=== PATIENT | male | born 1945 | race Caucasian/White ===

== ENCOUNTER 2018-02-07 14:56 | Observation (INO) | payer MEDICARE ==
--- OUTSIDE RECORDS SUMMARY | 2018-02-07 15:03 | XMS REPORT | Continuity of Care Document ---
:1945 Author Organization Interface Problems Problem Status Onset Classification Date Comments Source Date Reported CONTACT Active 12/26/19 Condition 12/25/2014 DERMATITIS 15 [facility] GANGLION CYST Active 12/26/19 Condition 12/25/2014 15 [facility] OBESITY Active 12/26/19 Condition 12/25/2014 15 [facility] ORTHOSTATIC Active 12/26/19 Condition 12/25/2014 HYPOTENSION 15 Medical Group POST-OP CARE, IV Active 11/06/19 [facility] ANTIBIOTICS, PAIN 15 Medical [facility] Center POST-OP Active 11/06/19 [facility] COMPLICATIONS/BLE 15 [facility] Benign prostatic Active 10/25/19 Problem 11/21/2017 Data hypertrophy with 15 migrated Medical outflow from [facility] obstruction<sup>4 [facility] </sup> on 11/14/14. Onychomycosis<sup Active 10/25/19 Problem 11/21/2017 Data >9</sup> 15 migrated Medical from [facility] on 11/14/14. Osteoarthritis of Active 10/25/19 Problem 11/21/2017 Data hip<sup>10</sup> 15 migrated Medical from [facility] on 11/14/14. Preoperative Active 10/25/19 Problem 11/21/2017 Data procedures<sup>12 15 migrated Medical </sup> from [facility] on 11/14/14. ONYCHOMYCOSIS Active 10/25/19 Condition 12/25/2014 15 Medical Group OSTEOARTHRITIS, Inactive 10/25/19 Condition 12/25/2014 HIP, RIGHT 15 Medical Group BENIGN PROSTATIC Active 10/25/19 Condition 12/25/2014 HYPERTROPHY, WITH 15 Medical OBSTRUCTION Group AFTERCARE Active 10/24/19 [facility] FOLLOWING JOINT 15 Medical REPLACEMENT, B Center Sinusitis<sup>15< Active 06/22/19 Problem 11/21/2017 Data /sup> 15 migrated Medical from [facility] on 11/14/14. SINUSITIS Inactive 06/22/19 Condition 12/25/2014 15 Medical Group Prostate Active 04/12/20 Problem 11/21/2017 Data mass<sup>13</sup> 14 [facility]. Prostate Active 04/12/20 Problem 11/10/2014 9Data [facility] mass<sup>9</sup> 14 migrated Medical from [facility] on 10/09/14. PROSTATITIS, Inactive 04/12/20 Condition 12/25/2014 ACUTE 14 Medical Group PROSTATE NODULE Inactive 04/12/20 Condition 12/25/2014 14 Medical Group Abdominal Active 12/28/19 Problem 11/21/2017 Data pain<sup>1</sup> 14 migrated Medical from [facility] on 10/09/14. Medical Center ABDOMINAL PAIN Inactive 12/28/19 Condition 12/25/2014 14 Medical Group Allergic Active 12/13/19 Problem 11/21/2017 Data rhinitis<sup>2</s 14 migrated Medical up> from [facility] on 10/09/14. Medical Center Benign essential Active 12/13/19 Problem 11/21/2017 Data hypertension<sup> 14 migrated Medical 3</sup> from [facility] on 10/09/14. [facility] Center Body mass index Active 12/13/19 Problem 11/21/2017 Data 30+ - 14 migrated Medical obesity<sup>5</rodriguez from [facility] p> [facility]ric[facility] on 10/09/14. Disease of Active 12/13/19 Problem 11/21/2017 Data gallbladder<sup>6 14 migrated Medical </sup> from [facility]14. Long-term drug Active 12/13/19 Problem 11/21/2017 Data therapy<sup>7</rodriguez 14 migrated Medical p> from [facility] on 10/09/14. Neck Active 12/13/19 Problem 11/21/2017 Data pain<sup>8</sup> 14 migrated Medical from [facility]. Positional Active 12/13/19 Problem 11/21/2017 Data vertigo<sup>11</s 14 migrated Medical up> from [facility]14. 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 Body mass index Active 12/13/19 Problem 11/10/2014 4Data [place] 30+ - 14 migrated Medical obesity<sup>4</rodriguez from [facility] p> [facility]ric[facility] on 10/09/14. Disease of Active 12/13/19 Problem 11/10/2014 5Data [facility] gallbladder<sup>5 14 migrated Medical </sup> from [facility] on 10/09/14. Long-term drug Active 12/13/19 Problem 11/10/2014 6Data [facility] therapy<sup>6</rodriguez 14 migrated Medical p> from [facility] on 10/09/14. Neck Active 12/13/19 Problem 11/10/2014 7Data [facility] pain<sup>7</sup> 14 migrated Medical from [facility] on 10/09/14. Positional Active 12/13/19 Problem 11/10/2014 8Data [facility] vertigo<sup>8</rodriguez 14 migrated Medical p> from [facility] on 10/09/14. Reactive airways Active 12/13/19 Problem 11/10/2014 10Data [facility] dysfunction 14 migrated Medical syndrome<sup>10</ from [facility] sup> Centricity on 10/09/14. HYPERTENSION, Active 12/13/19 Condition 12/25/2014 BENIGN ESSENTIAL 14 Medical Group BODY MASS INDEX Active 12/13/19 Condition 06/22/2014 38.0-38.9, ADULT 14 Medical Group GALLBLADDER Active 12/13/19 Condition 12/25/2014 DISEASE 14 Medical Group CERVICALGIA Active 12/13/19 Condition 12/25/2014 14 Medical Group LONG-TERM USE OF Active 12/13/19 Condition 12/25/2014 MEDS 14 Medical Group ALLERGIC RHINITIS Active 12/13/19 Condition 12/25/2014 14 Medical Group REACTIVE AIRWAY Active 12/13/19 Condition 12/25/2014 DISEASE 14 Medical Group POSITIONAL Inactive 12/13/19 Condition 12/25/2014 VERTIGO 14 Medical Group BODY MASS INDEX Active 12/13/19 Condition 10/24/2014 35.0-35.9, ADULT 14 Medical Group BODY MASS INDEX Active 12/13/19 Condition 12/25/2014 34.0-34.9, ADULT 14 Medical Group NAUSEA Active 12/12/[address] Arthritis Active Problem 11/21/2017 Medical Group,[facility] [place] [facility] Hypertension Active Problem 11/21/2017 Medical Group,[facility] [place] [facility] OTHER GENERAL Active [facility] SYMPTOMS [facility] OSTEOARTHROS Active [facility] NOS-L/LEG [facility] Center Medications Medication Details Route Status Patient Ordering Order Source Instructions Provider Date lisinopril 20 mg 40 mg=2 tab, PO, Active oral tablet Daily, # 180 tab, 2018 Medical 1 Refill(s), Group Pharmacy: [facility] lisinopril 20 mg See Instructions, No Longer oral tablet # 180 tab, TAKE 2 Active 2017 Medical TABLETS BY MOUTH Group EVERY DAY, Pharmacy: [facility] 24 HR mirabegron 50 mg=1 tab, PO, Active 50 MG Extended Daily, # 90 tab, 2018 Medical Release Tablet 3 Refill(s), Group [Myrbetriq] Pharmacy: [facility] 24 HR mirabegron 50 mg=1 tab, PO, Active 08/03[facility] 50 MG Extended Daily, # 30 tab, 2018 Medical Release Tablet 6 Refill(s), Group [Myrbetriq] Pharmacy: [facility] 482 TRIAMCINOLONE apply to affected Active ACETONIDE 0.1 % area twice daily 2015 Medical CREA as needed Group Acetaminophen 300 1 - 2 tab, PO, Active 11/07[facility] [place] MG / Codeine Q6H, PRN Pain, X 2015 Medical Phosphate 60 MG 7 day, # 40 tab, Center Oral Tablet 1 Refill(s) [Tylenol with Codeine #4] minocycline 100 100 mg=1 cap, PO, Active 11/07[facility] [place] mg oral capsule Q12H, X 14 day, # 2015 Medical 28 cap, 0 Center Refill(s) Aspirin 81 MG 81 mg=1 tab, PO, Active 11/07[facility] [place] Enteric Coated BID, HOLD ASPIRIN 2014 Medical Tablet UNTIL CLEARED BY Center ORTHOPEDICS. STAY ACTIVE TO PREVENT BLOOD CLOTS., # 60 tab, 0 Refill(s), otherSpecial Instructions: HOLD ASPIRIN UNTIL CLEARED BY ORTHOPEDICS. STAY ACTIVE TO PREVENT BLOOD CLOTS. topiramate 25 mg 25 mg=1 tab, PO, Active [facility] oral tablet Bedtime, 0 2014 Medical Refill(s) Center lisinopril 20 mg 20 mg=1 tab, PO, Active [facility] oral tablet BID, HOLD UNTIL 2015 Medical SYSTOLIC BP (TOP Center NUMBER) IS GREATER THAN 140 THEN RESTART., 0 Refill(s)Special Instructions: HOLD UNTIL SYSTOLIC BP (TOP NUMBER) IS GREATER THAN 140 THEN RESTART. docusate sodium 100 mg=1 cap, PO, Active [place] 100 mg oral BID, 0 Refill(s) 2014 Medical capsule Center acetaminophen 325 650 mg=2 tab, PO, Active [facility] mg oral tablet Q6H, PRN Pain 2015 Medical Score 1-3, not to Center exceed 4000 mg/day INCLUDING 325mg per tab of norco, 0 Refill(s)Special Instructions: not to exceed 4000 mg/day INCLUDING 325mg per tab of norco Acetaminophen 325 1 tab, PO, Q4H, Active [facility] MG / Hydrocodone PRN Pain Score 2015 Medical Bitartrate 10 MG 1-3, 0 Refill(s) Center Oral Tablet sennosides, JAIL 17.2 mg, 2 tab, No Longer [facility] Route: PO, Drug Active 2014 Medical Form: TAB, Dosing Center Weight 110.909, kg, Daily, Start date: 11/06/14 9:00:00, Duration: 30 day, Stop date: 12/05/14 9:00:00Notes: (Same as: Senokot) topiramate 50 mg, 2 tab, No Longer [facility] Route: PO, Drug Active 2014 Medical form: TAB, Daily, Center Dosing Weight 110.909, kg, Start date: 11/06/14 9:00:00, Duration: 30 day, Stop date: 12/05/14 9:00:00Notes: (Same As: Topamax) Fish Oil 1,000 mg, 1 cap, No Longer [facility] Route: PO, Drug Active 2014 Medical form: CAP, Daily, Center Dosing Weight 110.909, kg, Start date: 11/06/14 9:00:00, Duration: 30 day, Stop date: 12/05/14 9:00:00Notes: (Same as: MaxEPA, [place] 3 fish oil ) Non-Formulary Drug multivitamin 1 tab, Route: PO, No Longer [place] Drug Form: TAB, Active 2014 Medical Dosing Weight Center 110.909, kg, Daily, Start date: 11/06/14 9:00:00, Duration: 30 day, Stop date: 12/05/14 9:00:00Notes: (Same as:Thera) Take with food. Lisinopril 20 mg, 1 tab, No Longer [place] Route: PO, Drug Active 2014 Medical form: TAB, BID, Center Dosing Weight 110.909, kg, Start date: 11/06/14 9:00:00, Duration: 30 day, Stop date: 12/05/14 21:00:00Notes: (Same as: Prinivil, Zestril) Vitamin D3 1000 1,000 IntlUnit, 1 No Longer [place] intl units oral tab, Route: PO, Active 2014 Medical tablet Drug form: TAB, Center Daily, Dosing Weight 110.909, kg, Start date: 11/06/14 9:00:00, Duration: 30 day, Stop date: 12/05/14 9:00:00Notes: Same as : Vitamin D3 carvedilol 12.5 mg, 2 tab, No Longer [place] Route: PO, Drug Active 2014 Medical form: TAB, QAM, Center Dosing Weight 110.909, kg, Start date: 11/06/14 9:00:00, Duration: 30 day, Stop date: 12/05/14 9:00:00Notes: Give with food. (Same As: Coreg) Vitamin C 500 mg, 1 tab, No Longer [place] Route: PO, Drug Active 2014 Medical form: TAB, Daily, Center Dosing Weight 110.909, kg, Start date: 11/06/14 9:00:00, Duration: 30 day, Stop date: 12/05/14 9:00:00Notes: (Same as: Vitamin C) tamsulosin 0.4 mg, 1 cap, No Longer [place] Route: PO, Drug Active 2014 Medical form: CAP, After Center Breakfast, Dosing Weight 110.909, kg, Start date: 11/06/14 8:30:00, Duration: 30 day, Stop date: 12/05/14 8:30:00Notes: (Same As: Flomax) "Do Not Crush" Vancomycin 6.67 1,500 mg, 250 mL, No Longer [place] MG/ML Injectable Route: IVPB, Drug Active 2014 Medical Solution form: INJ, Q12H, Center Dosing Weight 110.909, kg, Time Critical Medication, Start date: 11/06/14 5:00:00, Duration: 14 day, Stop date: 11/19/14 17:00:00, Pharmacy to adjust dose for renal functionSpecial Instructions: Pharmacy to adjust dose for renal functionNotes: TIME CRITICAL MEDICATION Same as: Vancocin-NS (premixed) Infusion rate 2001 mg: infuse over 2.5 hours Tranexamic Acid 2,000 mg, 20 mL, Inactive [place] Route: IVPB, Drug 2014 Medical form: INJ, ONCE, Center Dosing Weight 110.909, kg, Start date: 11/06/14 1:02:00, Stop date: 11/06/14 1:02:00Notes: (Same As: Cyklokapron) Topamax 25 mg, 1 tab, No Longer [place] Route: PO, Drug Active 2014 Medical form: TAB, Center Bedtime, Start date: 11/05/14 21:00:00, Duration: 30 day, Stop date: 12/04/14 21:00:00Notes: (Same As: Topamax) Docusate 100 mg, 1 cap, No Longer [facility] Route: PO, Drug Active 2014 Medical form: CAP, BID, Center Dosing Weight 110.909, kg, Start date: 11/05/14 21:00:00, Duration: 30 day, Stop date: 12/05/14 9:00:00Notes: (Same as: Colace) celecoxib 200 mg, 1 cap, No Longer [facility] Route: PO, Drug Active 2014 Medical form: CAP, Center [id number], Dosing Weight 110.909, kg, Start date: 11/05/14 20:00:00, Stop date: 12/05/14 8:00:00Notes: NSAID. Please check indication. Not for seizure. (Same As: CeleBREX) Morphine 2 mg, 0.2 mL, No Longer [facility] Route: IVP, Drug Active 2014 Medical form: INJ, Q5Min, Center Dosing Weight 110.909, kg, PRN Pain Score 4-6, Start date: 11/05/14 19:18:00, Duration: 5 doses or times, Stop date: Limited # of timesNotes: (Same as:MORPhine Sulfate) Hydromorphone 0.5 mg, 0.25 mL, No Longer [facility] Route: IVP, Drug Active 2014 Medical form: INJ, Q5Min, Center Dosing Weight 110.909, kg, PRN Pain Score 7-10, Start date: 11/05/14 19:18:00, Duration: 4 doses or times, Stop date: Limited # of timesNotes: Same as Dilaudid Meperidine 12.5 mg, 0.25 mL, No Longer [facility] Route: IVP, Drug Active 2014 Medical form: INJ, Center Q30Min, Dosing Weight 110.909, kg, PRN Other -See Comment, For shivering, Start date: 11/05/14 19:18:00, Duration: 2 doses or times, Stop date: Limited # of timesNotes: (Same as: Demerol) "Use Precaution in Elderly, Seizure disorders, and Renal impairment" Ondansetron 4 mg, 2 mL, No Longer [facility] Route: IVP, Drug Active 2014 Medical form: INJ, ONCE, Center Dosing Weight 110.909, kg, PRN Nausea & Vomiting, Start date: 11/05/14 19:18:00Notes: (Same as: Zofran) MEDICATION WASTE Product Size: 4 mg Product Wasted: ___ mg POLYETHYLENE 17 gm, 1 pkt, No Longer [place] GLYCOL [id number] Route: PO, Drug Active 2014 Medical form: PWDR, Center Daily, Dosing Weight 110.909, kg, PRN Constipation, Start date: 11/05/14 19:02:00, Stop date: 12/05/14 19:01:00Notes: (Same as: Miralax) Bisacodyl 10 mg, 1 supp, No Longer [place] Route: VT, Drug Active 2014 Medical form: SUPP, Center Daily, Dosing Weight 110.909, kg, PRN Constipation, Start date: 11/05/14 19:02:00, Stop date: 12/05/14 19:01:00Notes: (Same As: Dulcolax, Bisco-Lax) Morphine 5 mg, 0.5 mL, No Longer [place] Route: IVP, Drug Active 2014 Medical form: INJ, Q4H, Center Dosing Weight 110.909, kg, PRN Pain Score 7-10, Start date: 11/05/14 19:02:00, Stop date: 12/05/14 19:01:00Notes: (Same as:MORPhine Sulfate) Al hydroxide/Mg 30 mL, Route: PO, No Longer [place] hydroxide/simethi Drug Form: SUSP, Active 2014 Medical cone 200 mg-200 Dosing Weight Center mg-20 mg/5 mL 110.909, kg, Q4H, oral suspension PRN Indigestion, Start date: 11/05/14 19:02:00, Stop date: 12/05/14 19:01:00Notes: (aluminum hydroxide-magnesi um hyd- simethicone [id number]/5ml 30 ml ud DELISA) Ondansetron 4 mg, 2 mL, No Longer [place] Route: IVP, Drug Active 2014 Medical form: INJ, Q6H, Center Dosing Weight 110.909, kg, PRN Nausea & Vomiting, Start date: 11/05/14 19:02:00, Stop date: 12/05/14 19:01:00Notes: (Same as: Zofran) MEDICATION WASTE Product Size: 4 mg Product Wasted: ___ mg Diphenhydramine 25 mg, 1 cap, No Longer [place] Route: PO, Drug Active 2014 Medical form: CAP, Center Bedtime, Dosing Weight 110.909, kg, PRN Insomnia, Start date: 11/05/14 19:02:00, Stop date: 12/05/14 19:01:00Notes: (Same as: Benadryl) Phenergan 25 mg, 1 tab, No Longer [place] Route: PO, Drug Active 2014 Medical form: TAB, Q6H, Center Dosing Weight 110.909, kg, PRN Nausea & Vomiting, Start date: 11/05/14 19:02:00, Stop date: 12/05/14 19:01:00Notes: (Same as: Phenergan) Tylenol 650 mg, 2 tab, No Longer [place] Route: PO, Drug Active 2014 Medical form: TAB, Q6H, Center Dosing Weight 110.909, kg, PRN Pain Score 1-3, Start date: 11/05/14 19:02:00, Stop date: 12/05/14 19:01:00Notes: Do not exceed 4 gm/day. (Same as: Tylenol) zolpidem 5 mg, Route: PO, Inactive [place] Drug form: TAB, 2015 Medical Bedtime, Dosing Center Weight 110.909, kg, PRN Insomnia, Start date: 11/05/14 19:02:00, Duration: 30 day, Stop date: 12/05/14 19:01:00 Acetaminophen 325 2 tab, Route: PO, No Longer [place] MG / Hydrocodone Drug Form: TAB, Active 2014 Medical Bitartrate 10 MG Dosing Weight Center Oral Tablet 110.909, kg, Q4H, PRN Pain Score 4-6, Start date: 11/05/14 19:02:00, Stop date: 12/05/14 19:01:00Notes: Do not exceed 4gm/day of acetaminophen. (Same as: [place] 325/10) Temazepam 15 mg, 1 cap, No Longer [facility] Route: PO, Drug Active 2014 Medical form: CAP, Center Bedtime, Dosing Weight 110.909, kg, PRN Sleep, Start date: 11/05/14 19:02:00, Stop date: 12/05/14 19:01:00Notes: (Same As: Restoril) Famotidine 20 mg, 1 tab, No Longer [facility] Route: PO, Drug Active 2014 Medical form: TAB, BID, Center Dosing Weight 110.909, kg, PRN Indigestion, Start date: 11/05/14 19:02:00, Stop date: 12/05/14 19:01:00Notes: (Same as: Pepcid) Oxycodone 5 mg, 1 tab, No Longer [place] Hydrochloride 5 Route: PO, Drug Active 2014 Medical MG Oral Tablet form: TAB, Q4H, Center Dosing Weight 110.909, kg, PRN Pain Score 4-6, Start date: 11/05/14 19:02:00, Stop date: 12/05/14 19:01:00Notes: (Same as: Roxicodone) 1/2 NS 1,000 mL 1,000 mL, Rate: No Longer [place] 85 ml/hr, Infuse Active 2014 Medical over: 11.8 hr, Center Route: IV, Dosing Weight 110.909 kg, Total Volume: 1,000, Start date: 11/05/14 19:02:00, Stop date: 12/05/14 19:01:00 Vancomycin 1 gm, Route: Inactive [place] IVPB, Drug form: 2014 Medical INJ, ONCE, Dosing Center Weight 110.909, kg, Priority: STAT, Start date: 11/05/14 18:02:00, Stop date: 11/05/14 18:02:00 Albuterol 0.83 2.49 mg, 3 mL, No Longer [place] MG/ML Inhalant Route: Active 2014 Medical Solution INHALATION, Drug Center form: SOLN, RQ6H, Dosing Weight 110.909, kg, PRN Wheezing, Start date: 11/05/14 17:31:00, Stop date: 12/05/14 17:30:00Notes: SEE RT DOCUMENTATION (Same as: Proventil) Ondansetron 4 mg, 2 mL, No Longer [facility] Route: IVP, Drug Active 2014 Medical form: INJ, Q8H, Center Dosing Weight 110.909, kg, PRN Nausea & Vomiting, Start date: 11/05/14 16:58:00, Stop date: 12/05/14 16:57:00Notes: (Same as: Zofran) MEDICATION WASTE Product Size: 4 mg Product Wasted: ___ mg Docusate 100 mg, 1 cap, No Longer [place] Route: PO, Drug Active 2014 Medical form: CAP, BID, Center Dosing Weight 110.909, kg, PRN Constipation, Start date: 11/05/14 16:58:00, Stop date: 12/05/14 16:57:00Notes: (Same as: Colace) (Do Not Crush) Acetaminophen 325 1 tab, Route: PO, No Longer [place] MG / Hydrocodone Drug Form: TAB, Active 2014 Medical Bitartrate 10 MG Dosing Weight Center Oral Tablet 110.909, kg, Q4H, PRN Pain Score 4-6, Start date: 11/05/14 16:58:00, Stop date: 12/05/14 16:57:00Notes: Do not exceed 4gm/day of acetaminophen. (Same as: [place] 325/10) Acetaminophen 650 mg, 2 tab, No Longer [place] Route: PO, Drug Active 2014 Medical form: TAB, Q4H, Center Dosing Weight 110.909, kg, PRN Other -See Comment, Start date: 11/05/14 16:58:00, Stop date: 12/05/14 16:57:00, feverNotes: Do not exceed 4 gm/day. (Same as: Tylenol) Morphine 2 mg, 0.2 mL, No Longer [place] Route: IVP, Drug Active 2014 Medical form: INJ, Q3H, Center Dosing Weight 110.909, kg, PRN Pain Score 7-10, Start date: 11/05/14 16:58:00, Stop date: 12/05/14 16:57:00Notes: (Same as:MORPhine Sulfate) Acetaminophen 325 1 tab, Route: PO, No Longer [place] MG / Hydrocodone Drug Form: TAB, Active 2014 Medical Bitartrate 5 MG Dosing Weight Center Oral Tablet 110.909, kg, Q4H, PRN Pain Score 1-3, Start date: 11/05/14 16:58:00, Stop date: 12/05/14 16:57:00Notes: (Same as: [place] 325/5) Do not exceed 4gm/day of acetaminophen. Cefazolin 2 gm, Route: Inactive [place] IVPB, ONCALL, 2014 Medical Dosing Weight Center 110.909, kg, Start date: 11/05/14 16:00:00, Duration: 1 doses or times, Stop date: 11/06/14 6:00:00Notes: (Same As: Mone Jacques) Cefazolin FOR IV SET ONLY MEDICATION WASTE Product Size: 1000 mg Product Wasted: ___ mg Acetaminophen 325 2 tab, Route: PO, Inactive [facility] MG / Hydrocodone Drug Form: TAB, 2014 Medical Bitartrate 10 MG Dosing Weight Center Oral Tablet 111.364, kg, [[place] 10/325] ONCE, STAT, Start date: 11/05/14 13:31:00, Stop date: 11/05/14 13:31:00 Acetaminophen 325 1-2 tab, PO, Active [facility] MG / Hydrocodone Q4-6H, PRN Pain, 2015 Medical Bitartrate 10 MG X 5 day, # 40 Center Oral Tablet tab, 0 Refill(s) [[place] 10/325] senna 8.6 mg oral 17.2 mg=2 tab, Active [facility] tablet PO, Bedtime, PRN 2015 Medical constipation, X Center 14 day, # 28 tab, 0 Refill(s) docusate sodium 100 mg=1 cap, PO, Active [place] 100 mg oral BID, # 28 cap, 0 2015 Medical capsule Refill(s) Center bisacodyl 10 mg 10 mg=1 supp, [place], Active [facility] rectal Daily, PRN 2015 Medical suppository Constipation, X 3 Center day, # 3 supp, 0 Refill(s) Aspirin 81 MG 81 mg=1 tab, PO, Active [place] Enteric Coated BID, # 60 tab, 0 2015 Medical Tablet Refill(s) Center celecoxib 200 mg 200 mg=1 cap, PO, Active [facility] oral capsule [id number], # 60 2015 Medical cap, 2 Refill(s) Center Sodium Chloride 1,000 mL, Rate: No Longer [place] 0.154 MEQ/ML 75 ml/hr, Infuse Active 2015 Medical Injectable over: 13.3 hr, Center Solution Route: IV, Dosing Weight 111.364 kg, Total Volume: 1,000, Start date: 10/30/14 10:09:00, Duration: 30 day, Stop date: 11/29/14 10:08:00 carvedilol 12.5 mg, 2 tab, No Longer [facility] Route: PO, Drug Active 2014 Medical form: TAB, QAM, Center Dosing Weight 111.364, kg, Start date: 10/30/14 9:00:00, Duration: 30 day, Stop date: 11/28/14 9:00:00Notes: Give with food. (Same As: Coreg) sennosides, JAIL 8.6 mg, 1 tab, No Longer [facility] Route: PO, Drug Active 2014 Medical Form: TAB, Dosing Center Weight 111.364, kg, Daily, Start date: 10/30/14 9:00:00, Duration: 30 day, Stop date: 11/28/14 9:00:00Notes: (Same as: Senokot) 120 ACTUAT 110 microgram, No Longer [facility] Triamcinolone Route: NASAL, Active 2014 Medical Acetonide 0.055 Drug Form: SPRY, Center MG/ACTUAT Nasal Dosing Weight Inhaler 111.364, kg, [Nasacort] Daily, Start date: 10/30/14 9:00:00, Duration: 30 day, Stop date: 11/28/14 9:00:00Notes: Non-formulary drug. (triamcinolone 55 microgram/inh 10 gm nasal SPR) (Same As: Nasacort) topiramate 50 mg, 2 tab, No Longer [facility] Route: PO, Drug Active 2014 Medical form: TAB, Daily, Center Dosing Weight 111.364, kg, Start date: 10/30/14 9:00:00, Duration: 30 day, Stop date: 11/28/14 9:00:00Notes: (Same As: Topamax) "Do Not Crush" tamsulosin 0.4 mg, 1 cap, No Longer [facility] Route: PO, Drug Active 2014 Medical form: CAP, Daily, Center Dosing Weight 111.364, kg, Start date: 10/30/14 9:00:00, Duration: 30 day, Stop date: 11/28/14 9:00:00Notes: (Same As: Flomax) "Do Not Crush" Fish Oil 1,000 mg, 1 cap, No Longer [facility] Route: PO, Drug Active 2014 Medical form: CAP, Daily, Center Dosing Weight 111.364, kg, Start date: 10/30/14 9:00:00, Duration: 30 day, Stop date: 11/28/14 9:00:00Notes: (Same as: MaxEPA, [place] 3 fish oil ) Non-Formulary Drug multivitamin 1 tab, Route: PO, No Longer [facility] Drug Form: TAB, Active 2014 Medical Dosing Weight Center 111.364, kg, Daily, Start date: 10/30/14 9:00:00, Duration: 30 day, Stop date: 11/28/14 9:00:00Notes: (Same as:Thera) Take with food. Vitamin D3 1000 1,000 IntlUnit, 1 No Longer [facility] intl units oral tab, Route: PO, Active 2014 Medical tablet Drug form: TAB, Center Daily, Dosing Weight 111.364, kg, Start date: 10/30/14 9:00:00, Duration: 30 day, Stop date: 11/28/14 9:00:00Notes: Same as : Vitamin D3 Tranexamic Acid 1,200 mg, 12 mL, Inactive [place] Route: IVPB, Drug 2014 Medical form: INJ, ONCE, Center Dosing Weight 111.364, kg, Priority: Routine, Start date: 10/29/14 21:21:00, Stop date: 10/29/14 21:21:00Notes: (Same As: Cyklokapron) ceFAZolin (SCIP) 2 gm, 100 mL, No Longer [facility] Route: IVPB, Drug Active 2014 Medical form: INJ, Q6H, Center Dosing Weight 111.364, kg, Start date: 10/29/14 20:00:00, Duration: 3 doses or times, Stop date: 10/30/14 8:00:00Notes: Same as Ancef Aspirin 325 mg, 1 tab, No Longer [facility] Route: PO, Drug Active 2014 Medical form: ECTAB, Center Q12H, Dosing Weight 111.364, kg, For patients with risk of bleeding, Start date: 10/29/14 19:23:00, Duration: 30 day, Stop date: 11/28/14 9:00:00Notes: (Do Not Crush) Do not crush or chew. Docusate 100 mg, 1 cap, No Longer [place] Route: PO, Drug Active 2014 Medical form: CAP, BID, Center Dosing Weight 111.364, kg, Start date: 10/29/14 17:00:00, Duration: 30 day, Stop date: 11/28/14 9:00:00Notes: (Same as: Colace) (Do Not Crush) Lisinopril 20 mg, 1 tab, No Longer [place] Route: PO, Drug Active 2014 Medical form: TAB, BID, Center Dosing Weight 111.364, kg, Start date: 10/29/14 17:00:00, Duration: 30 day, Stop date: 11/28/14 9:00:00Notes: (Same as: Prinivil, Zestril) Diphenhydramine 12.5 mg, 0.25 mL, No Longer [place] Route: IVP, Drug Active 2014 Medical form: INJ, Center Q10Min, Dosing Weight 111.364, kg, PRN Itching, up to a maximum of 25 mg, Start date: 10/29/14 16:08:00, Duration: 30 day, Stop date: 11/28/14 16:07:00Notes: (Same as: Benadryl) Albuterol 0.83 2.49 mg, 3 mL, No Longer [place] MG/ML Inhalant Route: NEB, Drug Active 2014 Medical Solution form: SOLN, PRN, Center Dosing Weight 111.364, kg, PRN Respiratory Protocol, Start date: 10/29/14 16:05:00, Duration: 30 day, Stop date: 11/28/14 16:04:00Notes: SEE RT DOCUMENTATION (Same as: Proventil) celecoxib 200 mg, 1 cap, No Longer [place] Route: PO, Drug Active 2014 Medical form: CAP, Center [id number], Dosing Weight 111.364, kg, Start date: 10/29/14 16:00:00, Duration: 30 day, Stop date: 11/28/14 4:00:00Notes: NSAID. Please check indication. Not for seizure. (Same As: CeleBREX) Promethazine 6.25 mg, 0.25 mL, Inactive [facility] Route: IVPB, Drug 2014 Medical form: INJ, ONCE, Center Dosing Weight 111.364, kg, PRN Nausea & Vomiting, Start date: 10/29/14 15:59:00Notes: Do not give IV push. (Same as: Phenergan) Ondansetron 4 mg, 2 mL, Inactive [facility] Route: IVP, Drug 2014 Medical form: INJ, ONCE, Center Dosing Weight 111.364, kg, PRN Nausea & Vomiting, Start date: 10/29/14 15:59:00Notes: (Same as: Zofran) MEDICATION WASTE Product Size: 4 mg Product Wasted: ___ mg Meperidine 12.5 mg, 0.25 mL, Inactive [facility] Route: IVP, Drug 2014 Medical form: INJ, Center Q30Min, Dosing Weight 111.364, kg, PRN Other -See Comment, For shivering, Start date: 10/29/14 15:59:00, Duration: 2 doses or times, Stop date: Limited # of timesNotes: (Same as: Demerol) "Use Precaution in Elderly, Seizure disorders, and Renal impairment" Flumazenil 0.2 mg, 2 mL, Inactive [facility] Route: IVP, Drug 2014 Medical form: INJ, PRN, Center Dosing Weight 111.364, kg, PRN Benzodiazepine Reversal, Initial dose, Start date: 10/29/14 15:59:00, Duration: 30 day, Stop date: 11/28/14 15:58:00Notes: (Same as: Romazicon) Naloxone 0.04 mg, 0.1 mL, Inactive [facility] Route: IVP, Drug 2014 Medical form: INJ, Q2MIN, Center Dosing Weight 111.364, kg, PRN Narcotic Reversal, Start date: 10/29/14 15:59:00, Duration: 8 doses or times, Stop date: Limited # of timesNotes: Same as Narcan Morphine 2 mg, 0.2 mL, Inactive [facility] Route: IVP, Drug 2014 Medical form: INJ, Q5Min, Center Dosing Weight 111.364, kg, PRN Pain Score 4-6, Start date: 10/29/14 15:59:00, Duration: 5 doses or times, Stop date: Limited # of timesNotes: (Same as:MORPhine Sulfate) Hydromorphone 0.5 mg, 0.25 mL, Inactive [facility] Route: IVP, Drug 2014 Medical form: INJ, Q5Min, Center Dosing Weight 111.364, kg, PRN Pain Score 7-10, Start date: 10/29/14 15:59:00, Duration: 4 doses or times, Stop date: Limited # of timesNotes: Same as Dilaudid Labetalol 10 mg, 2 mL, Inactive [facility] Route: IVP, Drug 2014 Medical form: INJ, Q5Min, Center Dosing Weight 111.364, kg, PRN Elevated BP, Start date: 10/29/14 15:59:00, Duration: 5 doses or times, Stop date: Limited # of times Hydralazine 10 mg, 0.5 mL, Inactive [facility] Route: IVP, Drug 2014 Medical form: INJ, Center Q20Min, Dosing Weight 111.364, kg, PRN Elevated BP, Start date: 10/29/14 15:59:00, Duration: 2 doses or times, Stop date: Limited # of timesNotes: (Same as: Apresoline) Push over 5 minutes Calcium Chloride 1,000 mL, Rate: Inactive [facility] 0.0014 MEQ/ML / 125 ml/hr, Infuse 2014 Medical Potassium over: 8 hr, Center Chloride 0.004 Route: IV, Dosing MEQ/ML / Sodium Weight 111.364 Chloride 0.103 kg, Total Volume: MEQ/ML / Sodium 1,000, Start Lactate 0.028 date: 10/29/14 MEQ/ML Injectable 15:59:00, Solution Duration: 30 day, Stop date: 11/28/14 15:58:00 Acetaminophen 1,000 mg, 100 mL, Inactive [facility] Route: IVPB, Drug 2014 Medical form: INJ, ONCE, Center Dosing Weight 111.364, kg, PRN Pain Score 1-3, Start date: 10/29/14 15:59:00, Duration: 1 doses or times, Stop date: Limited # of timesNotes: Infuse over 15 minutes Do not exceed 4gm/day of acetaminophen MEDICATION WASTE Product Size: 1000 mg Product Wasted: ___ mg Tranexamic Acid 1,200 mg, Route: Inactive [place] IVPB, ONCE, 2014 Medical Dosing Weight Center 111.364, kg, Start date: 10/29/14 15:27:00, Stop date: 10/29/14 15:27:00 Oxycodone 5 mg, 1 tab, No Longer [place] Hydrochloride 5 Route: PO, Drug Active 2014 Medical MG Oral Tablet form: TAB, Q4H, Center Dosing Weight 111.364, kg, PRN Pain Score 4-6, Start date: 10/29/14 15:21:00, Duration: 30 day, Stop date: 11/28/14 15:20:00Notes: (Same as: Roxicodone) Ondansetron 4 mg, 2 mL, No Longer [facility] Route: IVP, Drug Active 2014 Medical form: INJ, Q6H, Center Dosing Weight 111.364, kg, PRN Nausea & Vomiting, Start date: 10/29/14 15:21:00, Duration: 30 day, Stop date: 11/28/14 15:20:00Notes: (Same as: Zofran) MEDICATION WASTE Product Size: 4 mg Product Wasted: ___ mg Diphenhydramine 25 mg, 1 cap, No Longer [facility] Route: PO, Drug Active 2014 Medical form: CAP, Center Bedtime, Dosing Weight 111.364, kg, PRN Insomnia, Start date: 10/29/14 15:21:00, Duration: 30 day, Stop date: 11/28/14 15:20:00Notes: (Same as: Benadryl) Al hydroxide/Mg 30 mL, Route: PO, No Longer [facility] hydroxide/simethi Drug Form: SUSP, Active 2014 Medical cone 200 mg-200 Dosing Weight Center mg-20 mg/5 mL 111.364, kg, Q4H, oral suspension PRN Indigestion, Start date: 10/29/14 15:21:00, Duration: 30 day, Stop date: 11/28/14 15:20:00Notes: (aluminum hydroxide-magnesi um hyd- simethicone [phone]/5ml 30 ml ud DELISA) Morphine 5 mg, 0.5 mL, No Longer [place] Route: IVP, Drug Active 2014 Medical form: INJ, Q4H, Center Dosing Weight 111.364, kg, PRN Pain Score 7-10, Start date: 10/29/14 15:21:00, Duration: 30 day, Stop date: 11/28/14 15:20:00Notes: (Same as:MORPhine Sulfate) Bisacodyl 10 mg, 1 supp, No Longer [place] Route: VT, Drug Active 2014 Medical form: SUPP, Center Daily, Dosing Weight 111.364, kg, PRN Constipation, Start date: 10/29/14 15:21:00, Duration: 30 day, Stop date: 11/28/14 15:20:00Notes: (Same As: Dulcolax, Bisco-Lax) POLYETHYLENE 17 gm, 1 pkt, No Longer [place] GLYCOL 3350 Route: PO, Drug Active 2014 Medical form: PWDR, Center Daily, Dosing Weight 111.364, kg, PRN Constipation, Start date: 10/29/14 15:21:00, Duration: 30 day, Stop date: 11/28/14 15:20:00Notes: Dissolve in 8 oz of water or juice. (Same as: Miralax) Phenergan 25 mg, 1 tab, No Longer [place] Route: PO, Drug Active 2014 Medical form: TAB, Q6H, Center Dosing Weight 111.364, kg, PRN Nausea & Vomiting, Start date: 10/29/14 15:21:00, Duration: 30 day, Stop date: 11/28/14 15:20:00Notes: (Same as: Phenergan) Tylenol 650 mg, 2 tab, No Longer [facility] Route: PO, Drug Active 2014 Medical form: TAB, Q6H, Center Dosing Weight 111.364, kg, PRN Pain Score 1-3, Start date: 10/29/14 15:21:00, Duration: 30 day, Stop date: 11/28/14 15:20:00Notes: Do not exceed 4 gm/day. (Same as: Tylenol) zolpidem 5 mg, Route: PO, Inactive [place] Drug form: TAB, 2014 Medical Bedtime, Dosing Center Weight 111.364, kg, PRN Insomnia, Start date: 10/29/14 15:21:00, Duration: 30 day, Stop date: 11/28/14 15:20:00 Famotidine 20 mg, 1 tab, No Longer [place] Route: PO, Drug Active 2014 Medical form: TAB, BID, Center Dosing Weight 111.364, kg, PRN Indigestion, Start date: 10/29/14 15:21:00, Duration: 30 day, Stop date: 11/28/14 15:20:00Notes: (Same as: Pepcid) Temazepam 15 mg, 1 cap, No Longer [place] Route: PO, Drug Active 2014 Medical form: CAP, Center Bedtime, Dosing Weight 111.364, kg, PRN Sleep, Start date: 10/29/14 15:21:00, Duration: 30 day, Stop date: 11/28/14 15:20:00Notes: (Same As: Restoril) Acetaminophen 325 1 tab, Route: PO, No Longer [place] MG / Hydrocodone Drug Form: TAB, Active 2014 Medical Bitartrate 10 MG Dosing Weight Center Oral Tablet 111.364, kg, Q4H, PRN Pain Score 1-3, Start date: 10/29/14 15:21:00, Duration: 30 day, Stop date: 11/28/14 15:20:00Notes: Do not exceed 4gm/day of acetaminophen. (Same as: [place] 325/10) 1/2 NS 1,000 mL 1,000 mL, Rate: No Longer [place] 85 ml/hr, Infuse Active 2014 Medical over: 11.8 hr, Center Route: IV, Dosing Weight 111.364 kg, Total Volume: 1,000, Start date: 10/29/14 15:21:00, Duration: 30 day, Stop date: 11/28/14 15:20:00 Diphenhydramine 12.5 mg, 5 mL, No Longer [place] Route: PO, Drug Active 2014 Medical form: LIQ, Q6H, Center Dosing Weight 111.364, kg, PRN Itching, Start date: 10/29/14 14:46:00, Duration: 30 day, Stop date: 11/28/14 14:45:00, ..Special Instructions: ..Notes: (Same as: Sahil) Ondansetron 4 mg, 2 mL, No Longer [place] Route: IVP, Drug Active 2014 Medical form: INJ, Q8H, Center Dosing Weight 111.364, kg, PRN Nausea & Vomiting, Start date: 10/29/14 14:45:00, Duration: 30 day, Stop date: 11/28/14 14:44:00Notes: (Same as: Elijah) MEDICATION WASTE Product Size: 4 mg Product Wasted: ___ mg Acetaminophen 325 1 tab, Route: PO, No Longer [place] MG / Hydrocodone Drug Form: TAB, Active 2014 Medical Bitartrate 5 MG Dosing Weight Center Oral Tablet 111.364, kg, Q4H, PRN Pain Score 1-3, Start date: 10/29/14 14:45:00, Duration: 30 day, Stop date: 11/28/14 14:44:00Notes: (Same as: [place] 325/5) Do not exceed 4gm/day of acetaminophen. Acetaminophen 650 mg, 2 tab, No Longer [place] Route: PO, Drug Active 2014 Medical form: TAB, Q4H, Center Dosing Weight 111.364, kg, PRN Pain 1-3/Temp > 100.4 F, Start date: 10/29/14 14:45:00, Duration: 30 day, Stop date: 11/28/14 14:44:00, feverNotes: Do not exceed 4 gm/day. (Same as: Tylenol) Acetaminophen 325 1 tab, Route: PO, No Longer [place] MG / Hydrocodone Drug Form: TAB, Active 2014 Medical Bitartrate 10 MG Dosing Weight Center Oral Tablet 111.364, kg, Q4H, PRN Pain Score 4-6, Start date: 10/29/14 14:45:00, Duration: 30 day, Stop date: 11/28/14 14:44:00Notes: Do not exceed 4gm/day of acetaminophen. (Same as: [place] 325/10) Morphine 2 mg, 0.2 mL, No Longer [place] Route: IVP, Drug Active 2014 Medical form: INJ, Q3H, Center Dosing Weight 111.364, kg, PRN Pain Score 7-10, Start date: 10/29/14 14:45:00, Duration: 30 day, Stop date: 11/28/14 14:44:00Notes: (Same as:MORPhine Sulfate) Naloxone 0.1 mg, 0.25 mL, No Longer [place] Route: IVP, Drug Active 2014 Medical form: INJ, Q2MIN, Center Dosing Weight 111.364, kg, PRN Narcotic Reversal, Start date: 10/29/14 12:43:00, Duration: 8 doses or times, Stop date: Limited # of timesNotes: Same as Narcan Ancef 2 gm, 100 mL, Inactive [place] Route: IVPB, Drug 2014 Medical form: INJ, ONCE, Center Dosing Weight 109.091, kg, Start date: 10/29/14 10:37:00, Duration: 1 doses or times, Stop date: 10/29/14 10:37:00Notes: Same as Ancef Dexamethasone 4 mg, 1 mL, Inactive [facility] Route: IV, Drug 2014 Medical form: INJ, ONCE, Center Dosing Weight 109.091, kg, Start date: 10/29/14 10:37:00, Stop date: 10/29/14 10:37:00Notes: Concentration: 4mg/ml Celebrex 400 mg, 2 cap, Inactive [facility] Route: PO, Drug 2014 Medical form: CAP, ONCE, Center Dosing Weight 109.091, kg, Start date: 10/29/14 10:36:00, Stop date: 10/29/14 10:36:00Notes: NSAID. Please check indication. Not for seizure. (Same As: CeleBREX) Zofran 4 mg, 2 mL, Inactive [facility] Route: IV, Drug 2014 Medical form: INJ, ONCE, Center Dosing Weight 109.091, kg, Start date: 10/29/14 10:36:00, Stop date: 10/29/14 10:36:00Notes: (Same as: Elijah) MEDICATION WASTE Product Size: 4 mg Product Wasted: ___ mg ropivacaine 100 mL, Route: Inactive [facility] InFILtration(loca 2015 Medical l), Drug Form: Center INJ, ONCE, Start date: 10/29/14 7:30:00, Stop date: 10/29/14 7:30:00Notes: NOT FOR IV use Ropivacaine 5 mg/mL (49.25 mL) Epinephrine 1 mg/mL (0.5 mL) Clonidine 0.1 mg/mL (0.8 mL) Ketorolac 30 mg/mL (1 mL) Normal Saline 48.45 mL Vitamin D3 1000 1,000 IntlUnit=1 Active [facility] intl units oral tab, PO, Daily, # 2015 Medical tablet 30 tab, 0 Center Refill(s) Vitamin C 500 mg 500 mg=1 cap, PO, Active [facility] oral capsule Daily, # 30 cap, 2014 Medical 0 Refill(s) [place] Fish Oil 1000 mg 1,000 mg=1 cap, Active [facility] oral capsule PO, Daily, 0 2014 Medical Refill(s) [place] Aspirin 81 MG 81 mg=1 tab, PO, No Longer [facility] Enteric Coated Daily, # 90 tab, Active 2014 Medical Tablet 3 Refill(s) [place] 120 ACTUAT 2 spray, NASAL, Active [facility] Triamcinolone Daily, # 17 gm, 0 2014 [facility] Acetonide 0.055 Refill(s) [place] MG/ACTUAT Nasal Inhaler [Nasacort] multivitamin 1 tab, PO, Daily, Active [facility] 0 Refill(s) [address] [place] [address] tamsulosin 0.4 mg 0.4 mg=1 cap, PO, Active [facility] oral capsule Daily, # 30 cap, 2014 Medical 0 Refill(s) [place] topiramate 25 mg 50 mg=2 tab, PO, Active [facility] oral tablet Daily, # 180 tab, 2014 Medical 0 Refill(s) [place] Zyrtec-D 1 tab, PO, Daily, Active [facility] [place] 0 Refill(s) [facility] lisinopril 20 mg 20 mg=1 tab, PO, Active [place] oral tablet BID, # 30 tab, 0 2014 Medical Refill(s) Center carvedilol 12.5 12.5 mg=1 tab, Active [place] mg oral tablet PO, QAM, # 60 2015 Medical tab, 0 Refill(s) [place] ZYRTEC ALLERGY 10 Take 1 tablet by Active MG TABS mouth at PM 2014 Medical Group NASACORT ALLERGY 2 srpay ea Active 24HR 55 MCG/ACT nostril daily 2014 Medical AERO (start 2x daily 5 Group days) CEFTIN 500 MG 1 tablet twice No Longer TABS daily for 10 days Active 2014 Medical Group CIPROFLOXACIN HCL 1 tablet twice No Longer 500 MG TABS daily for Active 2013 Medical infection Group CIPROFLOXACIN HCL 1 tablet twice No Longer 500 MG TABS daily for Active 2013 Medical infection Group CIPROFLOXACIN HCL 1 tablet twice No Longer 500 MG TABS daily for Active 2013 Medical infection Group VENTOLIN HFA 108 Use 2 puffs every Active (90 BASE) MCG/ACT 6 hours as needed 2013 Medical [facility] CARVEDILOL 12.5 Take 1 tablet by Active MG TABS mouth twice daily 2013 Medical Group LISINOPRIL 20 MG Take 1 tablet by Active TABS mouth daily 2013 Medical Group ZYRTEC-D ALLERGY Take 1 tablet by Active & CONGESTION mouth daily 2013 Medical [id number] Group TRAMADOL HCL 50 Take 1 tsablet by Active MG TABS mouth twice daily 2013 Medical Group TOPIRAMATE 25 MG Take 1 tablet by Active TABS mouth twice daily 2013 Medical Group TAMSULOSIN HCL Take 1 capsule by Active 0.4 MG CAPS mouth twice daily 2013 Medical Group TOPIRAMATE 25 MG Take 1 tablet by Active TABS mouth twice daily 2013 Medical Group TRAMADOL HCL 50 Take 1 tsablet by Active MG TABS mouth twice daily 2013 Medical Group LISINOPRIL 20 MG Take tablet by Active TABS mouth twice daily 2013 Medical Group CARVEDILOL 12.5 Take 1 tablet by Active 12/12/ MH MG TABS mouth daily 2013 Medical Group VENTOLIN HFA 108 Use 2 puffs every Active 08/ [facility] (90 BASE) MCG/ACT 6 hours as needed 2013 Medical [facility] TOPIRAMATE 25 MG Take 2 tablets by Active 12/12/ MH TABS mouth every AM & 2013 Medical 1 tablet by mouth Group every PM TRAMADOL HCL 50 Take 1 tsablet by Active 12/12/ [facility] MG TABS mouth twice daily 2013 Medical Group VENTOLIN HFA 108 Use 2 puffs every Active 08/ [facility] (90 BASE) MCG/ACT 6 hours as needed 2013 Medical [facility] TRAMADOL HCL 50 Take 1 tablet by No Longer 08/05/ MH MG TABS mouth q6h prn Active 2013 Medical pain Group LISINOPRIL 20 MG Take tablet by Active 12/12/ MH TABS mouth twice daily 2013 Medical Group TRAMADOL HCL 50 Take 1 tablet by No Longer 08/05/ MH MG TABS mouth q6h prn Active 2013 Medical pain Group TOPIRAMATE 25 MG Take 2 tablets by Active 12/12/ MH TABS mouth every AM & 2013 Medical 1 tablet by mouth Group every PM LISINOPRIL 20 MG Take tablet by Active 05/ MH TABS mouth twice daily 2013 Medical Group TRAMADOL HCL 50 Take 1 tablet by No Longer 08/05/ [facility] MG TABS mouth q6h prn Active 2013 Medical pain Group CARVEDILOL 12.5 Take 1 tablet by No Longer 08/05/ MH MG TABS mouth daily Active 2013 Medical Group Allergies, Adverse Reactions, Alerts Substance Category Reaction Severity Reaction Status Date Comments Source type Reported NKDA Assertion Drug Active allergy Medical Group Immunizations Immunization Date Site Status Last Updated Comments Source Given tetanus-diphtheri Left completed [place] [facility] a 6 Deltoid Comment: [facility] toxoids<sup>1</rodriguez #[id number] p> 58 No reaction. Results Order Name Results Value Reference Date Interpretation Comments Source Range Chest 2 Chest 2 EXAM: Chest 2 [facility] [place] HISTORY: - reactive airway cough COMPARISON: 07/17/2016 Read by: Sherman Cutler MD Dictated Date/time: 12/01/16 11:56 Electronically Signed by: Sherman Cutler MD 12/01/16 11:57 FINAL REPORT Slight left basilar density noted today. No effusion or pneumothorax. Right lung is clear. Heart size is normal. Moderate discogenic degenerative changes are noted with stable mild vertebral body height loss in the mid thoracic spine. IMPRESSION: Mild left basilar density which could represent atelectasis or developing pneumonia. Chest 2 Chest 2 Exam: Two-view chest x-ray 07/17 - [facility] DX views /2016 - [place] Reason for Exam: bronchitis Read by: Tai aRi MD Dictated Date/time: 07/17/16 09:42 Electronically Signed by: Tai Rai MD 07/17/16 09:45 FINAL REPORT Comparison Exam: None Discussion: Cardiomediastinal silhouette is within normal limits. Both hemidiaphragms well visualized. No pulmonary edema or pleural effusions. No focal lung consolidations. Trachea is midline. No acute bony abnormalities. Moderate multilevel degenerative disc disease seen within the thoracic spine. Impression: 1. No acute cardiopulmonary abnormalities. HEMATOLOGY Hct 25.9 % 42.0 - 11/07 [facility] 54.[address] [facility] HEMATOLOGY Hgb 8.3 g/dL 14.0 - 11/07 [facility] 18.[address] [facility] CHEM PANEL eGFR 77 11/06 2Result Comment: The eGFR is calculated using the CKD-EPI formula. In most young, healthy individuals the eGFR will be >90 mL/ min/1.73m2. The eGFR declines with age. An eGFR of 60-89 may be normal in [facility] mL/min/1. some populations, particularly the elderly, for whom the CKD-EPI formula has not been extensively validated. Use of the eGFR is not recommended in the following populations: [address] Individuals with unstable creatinine concentrations, including patients and those with serious co-morbid conditions. Patients with extremes in muscle mass or diet. The data above are obtained from the National Kidney Disease Education Program (NKDEP) which additionally recommends that when the eGFR is used in patients with extremes of body mass index for purposes of drug dosing, the eGFR should be multiplied by the estimated BMI. CHEM PANEL Glucose Lvl 119 mg/dL 70 - 99 11/06 4Interpretive Data: Adult reference range values reflect the clinical guidelines of the [place] [employer]. [facility] CHEM PANEL BUN 16 mg/dL 7 - 22 11/[address] [facility] CHEM PANEL AGAP 15.8 meq/L 10.0 - 11/06 [facility] 20.[address] [facility] CHEM PANEL Chloride Lvl 104 meq/L 95 - 109 11/[address] [facility] CHEM PANEL Sodium Lvl 139 meq/L 135 - 145 11/06 1Result Comment: Medical performed by Center alternative method IStat. CHEM PANEL Potassium 3.8 meq/L 3.5 - 5.1 11/06 [facility] CHEM PANEL Creatinine 1.0 mg/dL 0.5 - 1.4 11/06 [facility] CHEM PANEL CO2 23 meq/L - 11/[address] [facility] CHEM PANEL Calcium Lvl 7.8 mg/dL 8.5 - 10.5 11/[address] [facility] HEMATOLOGY Hct 28.4 % 42.0 - 11/06 [facility] [address] [facility] HEMATOLOGY Hgb 9.3 g/dL 14.0 - 11/06 [facility] [address]. [facility] BLOOD BANK ABO/Rh O POS 11/05 [facility] RESULTS [facility] BLOOD BANK Antibody Negative 11/05 [facility] RESULTS [facility] (11/05/14 3:50 PM) [place] CHEM PANEL eGFR 69 11/05 3Result Comment: The eGFR is calculated using the CKD-EPI formula. In most young, healthy individuals the eGFR will be >90 mL/ min/1.73m2. The eGFR declines with age. An eGFR of 60-89 may be normal in [facility] mL/min/1. some populations, particularly the elderly, for whom the CKD-EPI formula has not been extensively validated. Use of the eGFR is not recommended in the following populations: [place] [address] Center Individuals with unstable creatinine concentrations, including patients and those with serious co-morbid conditions. Patients with extremes in muscle mass or diet. The data above are obtained from the National Kidney Disease Education Program (NKDEP) which additionally recommends that when the eGFR is used in patients with extremes of body mass index for purposes of drug dosing, the eGFR should be multiplied by the estimated BMI. CHEM PANEL Chloride Lvl 104 meq/L 95 - 109 11/[address] [facility] CHEM PANEL CO2 20 meq/L 24 - 32 11/[address] [facility] CHEM PANEL AGAP 16.3 meq/L 10.0 - 11/[address] [facility] CHEM PANEL Calcium Lvl 9.1 mg/dL 8.5 - 10.5 11/[address] [facility] CHEM PANEL Creatinine 1.1 mg/dL 0.5 - 1.4 11/[address] [facility] CHEM PANEL Glucose Lvl 120 mg/dL 70 - 99 11/05 5Interpretive Data: Adult reference range values reflect the clinical guidelines of the [place] [employer]. [facility] CHEM PANEL BUN 16 mg/dL 7 - 22 11/[address] [facility] CHEM PANEL Sodium Lvl 136 meq/L 135 - 145 11/[address] [facility] CHEM PANEL Potassium 4.3 meq/L 3.5 - 5.1 11/05 [facility] HEMATOLOGY Sed Rate 35 mm/h 0 - 15 11/[address] [facility] HEMATOLOGY MPV 9.5 fL 7.4 - 10.4 11/[address] [facility] HEMATOLOGY Platelet 273 K/CMM 133 - 450 11/[address] [facility] HEMATOLOGY RDW 13.3 % 11.5 - 11/[address] [facility] HEMATOLOGY MCHC 33.5 g/dL 32.0 - 11/[address] [facility] HEMATOLOGY MCH 30.5 pg 27.0 - 11/[address] [facility] HEMATOLOGY MCV 91.1 fL 80.0 - 11/[address] [facility] HEMATOLOGY Hct 36.7 % 42.0 - 11/[address] [facility] HEMATOLOGY Hgb 12.3 g/dL 14.0 - 11/[address] [facility] HEMATOLOGY RBC X 10x6 4.03 M/CMM 4.70 - 11/[address] [facility] HEMATOLOGY WBC X 10x3 12.5 K/CMM 3.7 - 10.4 11/[address] [facility] HEMATOLOGY Basophils # 0.0 K/CMM 0.0 - 0.2 11/[address] [facility] [facility] [facility] HEMATOLOGY Eosinophils 0.0 K/CMM 0.0 - 0.5 11/05 [place] # /[address] [facility] HEMATOLOGY Lymphocytes 0.6 K/CMM 1.0 - 5.5 11/05 [facility] # /[address] [facility] HEMATOLOGY Monocytes # 0.9 K/CMM 0.0 - 0.8 11/[address] [facility] HEMATOLOGY Segs-Bands # 10.9 K/CMM 1.5 - 8.1 11/[address] [facility] HEMATOLOGY Basophils 0.1 % 0.0 - 1.0 11/[address] [facility] HEMATOLOGY Eosinophils 0.1 % 0.0 - 4.0 11/[address] [facility] HEMATOLOGY Lymphocytes 5.1 % 20.0 - 11/05 [place] 40.[address] [facility] HEMATOLOGY Monocytes 7.5 % 2.0 - 12.0 11/[address] [facility] HEMATOLOGY Segs 87.2 % 45.0 - 11/05 [facility] 75.[address] [facility] IMMUNOLOGY C-REACTIVE 51.5 mg/L <=2.9 mg/L 11/05 [facility] PROTEIN [facility] HEMATOLOGY Hgb 11.8 g/dL 14.0 - 10/31 [facility] 18.[address] [facility] HEMATOLOGY Hct 36.2 % 42.0 - 10/31 [facility] 54.[address] [facility] ELECTROLYTE AGAP 13.3 meq/L 10.0 - 10/30 [facility] 20.[address] [facility] ELECTROLYTE Calcium Lvl 8.3 mg/dL 8.5 - 10.5 10/30 [facility] ELECTROLYTE CO2 23 meq/L 24 - 32 10/30 [facility] /[address] [facility] ELECTROLYTE Chloride Lvl 103 meq/L 95 - 109 10/30 [facility] S [facility] ELECTROLYTE Sodium Lvl 135 meq/L 135 - 145 10/30 [facility] ELECTROLYTE Potassium 4.3 meq/L 3.5 - 5.1 10/30 [facility] ELECTROLYTE BUN 14 mg/dL 7 - 22 10/30 [facility] ELECTROLYTE Creatinine 1.0 mg/dL 0.5 - 1.4 10/30 [facility] ELECTROLYTE Glucose Lvl 154 mg/dL 70 - 99 10/30 3Interpretive Data: Adult reference range values reflect the clinical guidelines [facility] of the [employer]. [facility] ELECTROLYTE eGFR 77 10/30 1Result Comment: The eGFR is calculated using the CKD-EPI formula. In most young, healthy individuals the eGFR will be > 90 mL/min/1.73m2. The eGFR declines with age. An eGFR of 60-89 may be normal in [facility] S mL/min/1. some populations, particularly the elderly, for whom the CKD-EPI formula has not been extensively validated. Use of the eGFR is not recommended in the following populations: [address] Individuals with unstable creatinine concentrations, including patients and those with serious co-morbid conditions. Patients with extremes in muscle mass or diet. The data above are obtained from the National Kidney Disease Education Program (NKDEP) which additionally recommends that when the eGFR is used in patients with extremes of body mass index for purposes of drug dosing, the eGFR should be multiplied by the estimated BMI. HEMATOLOGY Hct 41.6 % 42.0 - 10/30 [facility] 54.[address] [facility] HEMATOLOGY Hgb 13.7 g/dL 14.0 - 10/30 [facility] 18.[address] [facility] CHEM PANEL eGFR 97 10/29 2Result Comment: The eGFR is calculated using the CKD-EPI formula. In most young, healthy individuals the eGFR will be >90 mL/ min/1.73m2. The eGFR declines with age. An eGFR of 60-89 may be normal in [facility] mL/min/1 some populations, particularly the elderly, for whom the CKD-EPI formula has not been extensively validated. Use of the eGFR is not recommended in the following populations: [address] Individuals with unstable creatinine concentrations, including patients and those with serious co-morbid conditions. Patients with extremes in muscle mass or diet. The data above are obtained from the National Kidney Disease Education Program (NKDEP) which additionally recommends that when the eGFR is used in patients with extremes of body mass index for purposes of drug dosing, the eGFR should be multiplied by the estimated BMI. CHEM PANEL POC AGAP 17.0 meq/L 10.0 - 10/29 [facility] 20.[address] [facility] CHEM PANEL POC 38.0 % 42.0 - 10/29 [facility] Hematocrit 54.[address] [facility] CHEM PANEL POC 4.4 meq/L 3.5 - 5.1 10/29 [facility] Potassium /[address] [facility] CHEM PANEL POC Sodium 138 meq/L 135 - 145 10/29 [facility] CHEM PANEL POC Carbon 22 mEq/dL 24 - 32 10/29 [place] Dioxide [facility] CHEM PANEL POC Chloride 105 meq/L 95 - 109 10/29 [facility] CHEM PANEL POC 12.9 g/dL 14.0 - 10/29 [facility] Hemoglobin 18.0 /2014 [facility] CHEM PANEL POC Ion Ca 1.24 1.05 - 10/29 [facility] mMol/L 1.25 [facility] CHEM PANEL POC Glucose 132 mg/dL 70 - 99 10/29 /2014 [facility] CHEM PANEL POC 0.7 mg/dL 0.5 - 1.4 10/29 [facility] Creatinine /2014 [facility] CHEM PANEL POC BUN 10 mg/dL - 10/29 /2014 [facility] BLOOD BANK RBC product Product available 10/29 [facility] RESULTS /2014 Medical (10/29/14 2:59 PM) Center BLOOD BANK Antibody Negative 10/29 [facility] RESULTS Scrn Medical (10/29/14 9:27 AM) Center BLOOD BANK ABO/Rh O POS 10/29 RESULTS /2014 [facility] Chemistry SODIUM 140 mmol/L 135 - 143 10/24 [facility] Chemistry POTASSIUM 4.6 mmol/L 3.3 - 5.0 10/24 [facility] Chemistry ALBUMIN 4.2 g/dL 3.5 - 5.0 10/24 [facility] Chemistry CALCIUM 9.3 mg/dL 8.6 - 9.8 10/24 [facility] Chemistry CREATININE 1.03 mg/dL 0.46 - 10/24 1.20 [facility] Chemistry BUN 15 mg/dL - 10/24 /2014 [facility] Chemistry ALK PHOS 74 U/L 32 - 96 10/24 [facility] Chemistry SGOT (AST) 27 U/L 10 - 42 10/24 [facility] Chemistry SGPT (ALT) 28 U/L 11 - 43 10/24 [facility] Coagulation INR 1.03 0.8 - 1.5 10/24 [facility] Coagulation PTT PATIENT 29.5 s 22.0 - 10/24 36.0 /2014 [facility] Hematology HGB 17.3 g/dL 12.3 - 10/24 17.3 [facility] Hematology HCT 51.8 % 36.7 - 10/24 50.5 /2014 [facility] Chemistry SODIUM 140 mmol/L 135 - 143 12/12 [facility] Chemistry POTASSIUM 4.3 mmol/L 3.3 - 5.0 12/12 [facility] Chemistry SODIUM 140 mmol/L 135 - 143 12/12 [facility] Chemistry POTASSIUM 4.3 mmol/L 3.3 - 5.0 12/12 [facility] Chemistry BUN 18 mg/dL 10 - 22 12/12 [facility] Chemistry CREATININE 1.09 mg/dL 0.46 - 12/12 1.20 [facility] Chemistry CALCIUM 9.9 mg/dL 8.6 - 9.8 12/12 [facility] Chemistry CHOLESTEROL 179 mg/dl 120 - 200 12/12 [facility] Chemistry HDL 48 mg/dl 26 - 62 12/12 [facility] Chemistry LDL 106 mg/dl 0 - 130 12/12 [facility] Chemistry SGPT (ALT) 27 U/L 11 - 43 12/12 [facility] Chemistry SGOT (AST) 28 U/L 10 - 42 12/12 [facility] Chemistry HGBA1C 5.3 % 3.0 - 6.0 12/12 [facility] Chemistry TSH 1.21 0.34 - 12/12 uIU/mL 5.60 [facility] Hematology HGB 16.9 g/dL 12.3 - 12/12 17. Medical [facility] Hematology HCT 49.3 % 36.7 - 12/12 50. [facility] Hematology ESR 2 mm/hr 0 - 15 12/12 [facility] Vital Signs Vital Sign Value Date Comments Source Weight 102.5 11/18/2017 [facility] BMI Calculated 33.86 11/18/2017 [facility] Height 173.99 cm 11/18/2017 [facility] Temperature Oral (F) 98 F 11/18/2017 [facility] Heart Rate 89 11/18/2017 [facility] Systolic (mm Hg) 105 11/18/2017 [facility] Diastolic (mm Hg) 70 11/18/2017 [facility] Weight 101.818 09/21/2017 [facility] BMI Calculated 32.21 09/21/2017 [facility] Height 177.8 cm 09/21/2017 [facility] Temperature Oral (F) 96 F 09/21/2017 [facility] Heart Rate 111 09/21/2017 [facility] Systolic (mm Hg) 101 09/21/2017 [facility] Diastolic (mm Hg) 69 09/21/2017 [facility] Height 177.8 cm 08/03/2017 [facility] BMI Calculated 32.35 08/03/2017 [facility] Weight 102.273 08/03/2017 [facility] Systolic (mm Hg) 95 08/03/2017 [facility] Diastolic (mm Hg) 65 08/03/2017 [facility] Heart Rate 100 08/03/2017 [facility] Temperature Oral (F) 98.1 F 08/03/2017 [facility] BMI Calculated 31.52 05/04/2017 [facility] Height 177.8 cm 05/04/2017 [facility] Weight 99.659 05/04/2017 [facility] Systolic (mm Hg) 107 05/04/2017 [facility] Diastolic (mm Hg) 74 05/04/2017 [facility] Heart Rate 114 05/04/2017 [facility] Weight 238.6 12/25/2014 [facility] Temperature Oral (F) 98.0 F 12/25/2014 [facility] Respitory Rate 16 12/25/2014 [facility] Heart Rate 106 12/25/2014 [facility] Systolic (mm Hg) 122 12/25/2014 [facility] Diastolic (mm Hg) 82 12/25/2014 [facility] Group Respitory Rate 20 11/08/2014 [facility] Systolic (mm Hg) 127 11/08/2014 [facility] Diastolic (mm Hg) 88 11/08/2014 [facility] Heart Rate 107 11/08/2014 [facility] Temperature Oral (F) 98.9 F 11/08/2014 [facility] Heart Rate 72 11/07/2014 [facility] Systolic (mm Hg) 109 11/07/2014 [facility] Diastolic (mm Hg) 65 11/07/2014 [facility] Respitory Rate 18 11/07/2014 [facility] Temperature Oral (F) 98.1 F 11/07/2014 [facility] Heart Rate 103 11/07/2014 [facility] Respitory Rate 17 11/07/2014 [facility] Systolic (mm Hg) 126 11/07/2014 [facility] Diastolic (mm Hg) 84 11/07/2014 [facility] Temperature Oral (F) 97.9 F 11/07/2014 [facility] BMI Calculated 35.08 11/05/2014 [facility] Weight 110.909 11/05/2014 [facility] Height 177.8 cm 11/05/2014 [facility] BMI Calculated 35.08 11/05/2014 [facility] Weight 110.909 11/05/2014 [facility] Height 177.8 cm 11/05/2014 [facility] Systolic (mm Hg) 134 10/31/2014 [facility] Diastolic (mm Hg) 81 10/31/2014 [facility] Heart Rate 94 10/31/2014 [facility] Temperature Oral (F) 98.1 F 10/31/2014 [facility] Respitory Rate 17 10/31/2014 [facility] Heart Rate 98 10/31/2014 [facility] Respitory Rate 18 10/31/2014 [facility] Temperature Oral (F) 98.3 F 10/31/2014 [facility] Systolic (mm Hg) 108 10/31/2014 [facility] Diastolic (mm Hg) 66 10/31/2014 [facility] Temperature Oral (F) 98.3 F 10/31/2014 [facility] Systolic (mm Hg) 117 10/31/2014 [facility] Diastolic (mm Hg) 72 10/31/2014 [facility] Heart Rate 96 10/31/2014 [facility] Respitory Rate 17 10/31/2014 [facility] Height 177.8 cm 10/29/2014 [facility] BMI Calculated 35.23 10/29/2014 [facility] Weight 111.364 10/29/2014 [facility] BMI Calculated 34.51 10/26/2014 [facility] Weight 109.091 10/26/2014 [facility] Height 177.8 cm 10/26/2014 [facility] Weight 248.8 10/24/2014 [facility] Temperature Oral (F) 97.8 F 10/24/2014 [facility] Respitory Rate 16 10/24/2014 [facility] Heart Rate 69 10/24/2014 [facility] Systolic (mm Hg) 114 10/24/2014 [facility] Diastolic (mm Hg) 74 10/24/2014 [facility] Weight 251 06/22/2014 [facility] Temperature Oral (F) 98.2 F 06/22/2014 [facility] Respitory Rate 16 06/22/2014 [facility] Heart Rate 64 06/22/2014 [facility] Systolic (mm Hg) 108 06/22/2014 [facility] Diastolic (mm Hg) 58 06/22/2014 [facility] Weight 255.4 06/14/2014 [facility] Temperature Oral (F) 98.2 F 06/14/2014 [facility] Respitory Rate 16 06/14/2014 [facility] Heart Rate 72 06/14/2014 [facility] Systolic (mm Hg) 104 06/14/2014 [facility] Diastolic (mm Hg) 62 06/14/2014 [facility] Weight 250.6 04/12/2014 [facility] Temperature Oral (F) 97.4 F 04/12/2014 [facility] Respitory Rate 16 04/12/2014 [facility] Heart Rate 100 04/12/2014 [facility] Systolic (mm Hg) 124 04/12/2014 [facility] Diastolic (mm Hg) 82 04/12/2014 [facility] Height 70 12/27/2013 [facility] Weight 262 12/27/2013 [facility] Systolic (mm Hg) 119 12/27/2013 [facility] Diastolic (mm Hg) 78 12/27/2013 [facility] Heart Rate 80 12/27/2013 [facility] Height 68.75 12/12/2013 [facility] Weight 257 12/12/2013 [facility] Temperature Oral (F) 97.4 F 12/12/2013 [facility] Respitory Rate 16 12/12/2013 [facility] Heart Rate 80 12/12/2013 [facility] Systolic (mm Hg) 124 12/12/2013 [facility] Diastolic (mm Hg) 86 12/12/2013 [facility] Encounters Location Location Encounter Encounter Reason Attending ADM DC Status Source Details Type Number For Provider Date Date Visit [facility] Office [id number] Art 12/12 12/12 [place] [facility] [place] [address], /2013 Francisco Fall MD [facility] Lab Report [id number] Art 12/12 12/12 [place] [facility] [address], /2013 Francisco Fall MD [facility] Office [id number] Nadim 12/27 12/27 [place] [facility] Visit 4510 MD Nafisa /2013 [facility] [place] [facility] Lab Report [id number] Art 04/12 04/12 [place] [facility] [address], /2013 Francisco Fall MD [facility] Office [id number] Art 06/14 06/14 [place] [facility] Visit [address], /2014 Francisco Fall MD [facility] Office [id number] Art 06/22 06/22 [place] [facility] Visit [address], /2014 Francisco Fall MD [facility] Lab Report [id number] Art 10/24 10/24 [place] [facility] [address], /2014 Francisco Fall MD [facility] Inpatient [id number] Dameon 10/29 10/31 [facility] /2014 [facility] Inpatient [id number] Dameon 11/05 11/07 [facility] /2014 [facility] Office [id number] Art 12/25 12/25 [place] Medical Visit [address], /2014 Francisco Fall MD [facility] Outpatient [id number] ART 12/25 Active [facility] CALEB [place] Outpatient [id number] ART 06/24 Active [facility] [place] Outpatient [id number] ART 06/26 [facility] LAXMI [place] Outpatient [id number] NADIM 07/16 Active [facility] NAFISA [place] Outpatient [id number] CASSANDRA 08/28 Active [facility] BLANC [place] Outpatient [id number] ART 10/23 Active [facility] LAXMI [place] Outpatient [id number] [facility] 04[facility] [place] [facility] [id number] ART 06/15 Active [facility] [place] Outpatient [id number] ART 07/16 [facility] [place] Outpatient [id number] XRAY VISIT 07/17 [facility] [place] Outpatient [id number] XRAY VISIT 07/17 [facility] [place] Outpatient [id number] JERECIA 08/27 [facility] [place] Outpatient [id number] CASSANDRA 09/28 Active [facility] [place] Outpatient [id number] JERECIA 10/01 Active [facility] JEFFRIES [place] Outpatient [id number] ART 12/01 [facility] [place] [facility] [id number] XRAY VISIT 12/01 Active [facility] [place] Out[place] [id number] CASSANDRA 01/20 Active [facility] BLANC [place] Outpatient [id number] SIRENA FABY04/27 Active [facility] [place] MG Ambulatory [id number] Sirena Faby04/27 Urology Pre-Reg /2016 [facility] Outpatient [id number] SIRENA FABY 05/04 Active [facility] [place] MG Outpatient [id number] Sirena [place] 05/04 05/05 Urology /2016 [facility] [place] [facility] [id number] 06/10 06/12 Primary Medical /2017 [facility] [place] Outpatient [id number] FABY08/03 [facility] [facility] Outpatient [id number] Sirena [place] 08/03 08/04 Urology /2017 [facility] [id number] 08/31 09/02 Primary Medical /2017 [facility] [place] Outpatient [id number] SIRENA FABY09/21 [facility] [place] MG Outpatient [id number] Sirena [place] 09/21 09/22 Urology /2017 [facility] Outpatient [id number] SIRENA FABY10/26 [facility] Ambulatory [id number] Sirena Faby 10/26 10/26 Urology Pre-Reg /2017 [facility] Phone [id number] 11/15 11/17 Primary Message /2017 [facility] [place] Outpatient [id number] CASSANDRA 11/18 Active [facility] [place] MG Outpatient [id number] Cassandra 11/18 11/19 Primary [place] /2017 [facility] [place] Outpatient [id number] CASSANDRA 01/11 Active [facility] BLANC [place] Outpatient [id number] JERECIA 01/11 Active [facility] JEFFRIES [place] Out[place] [id number] SIRENA HOBBS 09/27 Active [place] Procedures Procedure Code Date Perfomer [place] [address] 08/03/2017 Medical post-voiding Group residual urine and/or bladder capacity by ultrasound, non-imaging Nasal sinus [id number] 05/10/2017 Medical [place] [id number] 05/04/2017 Medical post-voiding Group residual urine and/or bladder capacity by ultrasound, non-imaging Hip replacement [id number] 10/29/2014 Medical Group Hip replacement [id number] 10/29/2014 [facility] Arthroscopy of [id number] x2 Medical knee<sup>1</sup> Group Carpal tunnel [id number] x2, bone graft Medical decompression<sup> and joint Group 2</sup> corrected Hernia repair [id number] Medical Group Knee joint [id number] ligament repair [facility] operation<sup>3</s Group up> Rotator cuff [id number] Medical repair Group Spinal fusion [id number] Medical Group Total knee [id number] Medical replacement Group Arthroscopy of [id number] 1x2 [facility] knee<sup>1</sup> Medical [place] Carpal tunnel [id number] 2x2, bone graft [facility] decompression<sup> and joint Medical 2</sup> corrected Center Hernia repair [id number] [facility] Knee joint [id number] 3ligament [facility] operation<sup>3</s repair Medical up> Center Rotator cuff [id number] [facility] Spinal fusion [id number] [facility] Total knee [id number] [facility]
--- OUTSIDE RECORDS SUMMARY | 2018-02-07 15:05 | XMS REPORT | Continuity of Care Document ---
:1945 Author Organization [facility] Care Team Providers Name Role Phone MD Ingrid, Rodney Unavailable Unavailable Insurance Providers Payer name Policy type / Policy ID Covered constitution party ID Policy [place] Coverage type HUMA[employer] - CHOICE REGIONAL (MEDICARE REPLACEME Encounters Encounter Performer Location Date Office Visit Rodney Quintero MD [facility] [place] Dec 27, 2013 Gastroenterology Problems Problem Effective Dates Problem Status HYPERTENSION, BENIGN ESSENTIAL Dec 12, 2013 Active BODY MASS INDEX 38.0-38.9, ADULT Dec 12, 2013 Active GALLBLADDER DISEASE Dec 12, 2013 Active CERVICALGIA Dec 12, 2013 Active LONG-TERM USE OF MEDS Dec 12, 2013 Active ALLERGIC RHINITIS Dec 12, 2013 Active REACTIVE AIRWAY DISEASE Dec 12, 2013 Active POSITIONAL VERTIGO Dec 12, 2013 Active ABDOMINAL PAIN Dec 27, 2013 Active Procedures Date Description Comments Dec 12, 2013 smoking status Never smoker Dec 27, 2013 smoking status Never smoker Medications Medication Instructions Start Date Status VENTOLIN HFA 108 (90 BASE) Use 2 puffs every 6 hours as Dec 12, 2013 Active MCG/ACT AERS needed CARVEDILOL 12.5 MG TABS Take 1 tablet by mouth twice Dec 12, 2013 Active daily LISINOPRIL 20 MG TABS Take 1 tablet by mouth daily Dec 12, 2013 Active ZYRTEC-D ALLERGY & CONGESTION Take 1 tablet by mouth daily Dec 12, 2013 Active [id number] TRAMADOL HCL 50 MG TABS Take 1 tsablet by mouth twice Dec 12, 2013 Active daily TOPIRAMATE 25 MG TABS Take 1 tablet by mouth twice Dec 12, 2013 Active daily TAMSULOSIN HCL 0.4 MG CAPS Take 1 capsule by mouth twice Dec 12, 2013 Active daily Vital Signs Date Description Test Result Dec 12, 2013 height E&M HEIGHT 68.75 in Dec 12, 2013 weight E&M WEIGHT 257 lb Dec 12, 2013 temperature E&M TEMPERATURE 97.4 deg f Dec 12, 2013 respiratory rate E&M RESP RATE 16 /min Dec 12, 2013 pulse rate E&M PULSE RATE 80 /min Dec 12, 2013 blood pressure, systolic BP SYSTOLIC 124 mm Hg Dec 12, 2013 blood pressure, diastolic BP DIASTOLIC 86 mm Hg Dec 27, 2013 height E&M HEIGHT 70 in Dec 27, 2013 weight E&M WEIGHT 262 lb Dec 27, 2013 blood pressure, systolic BP SYSTOLIC 119 mm Hg Dec 27, 2013 blood pressure, diastolic BP DIASTOLIC 78 mm Hg Dec 27, 2013 pulse rate E&M PULSE RATE 80 /min Results Date Description Test Name Value Reference Interpretation Status Dec 12, hemoglobin, blood HGB 16.9 g/dL 12.3-17.3 2013Dec 12, hematocrit, blood HCT 49.3 % 36.7-50.5 2013Dec 12, erythrocyte ESR 2 mm/hr 0-15 2013 sedimentation rate Dec 12, sodium, serum SODIUM 140 mmol/L [phone] Dec 12, potassium, serum POTASSIUM 4.3 mmol/L 3.3-5.0 2013Dec 12, urea nitrogen, blood BUN 18 mg/dL 10-22 2013Dec 12, creatinine, serum CREATININE 1.09 mg/dL 0.46-1.20 2013Dec 12, calcium, serum CALCIUM 9.9 mg/dL 8.6-9.8 High 2013Dec 12, cholesterol, serum CHOLESTEROL 179 mg/dl [phone] Dec 12, HDL cholesterol, HDL 48 mg/dl 26-62 2013Dec 12, LDL cholesterol, LDL 106 mg/dl 0-130 2013Dec 12, alanine SGPT (ALT) 27 U/L -43 2013 aminotransferase (SGPT), serum Dec 12, aspartate SGOT (AST) 28 U/L 10-42 2013 aminotransferase (SGOT), serum Dec 12, hemoglobin A1C, HGBA1C 5.3 % 3.0-6.0 2013 blood, as % of total hemoglobin Dec 12, thyroid stimulating TSH 1.21 0.34-5.60 2013 hormone, serum uIU/mL
--- OUTSIDE RECORDS SUMMARY | 2018-02-07 15:05 | XMS REPORT | Continuity of Care Document ---
:1945 Author Organization [facility] Care Team Providers Name Role Phone MD Chato, Art Unavailable Unavailable Insurance Providers Payer name Policy type / Policy ID Covered republican ID Policy [place] Coverage type HUMANA - CHOICE REGIONAL (MEDICARE REPLACEME Encounters Encounter Performer Location Date Lab Report Art MD Chato [facility] Medical [place] [facility] Dec 12, 2013 Practice Problems Problem Effective Dates Problem Status HYPERTENSION, BENIGN ESSENTIAL Dec 12, 2013 Active BODY MASS INDEX 38.0-38.9, ADULT Dec 12, 2013 Active GALLBLADDER DISEASE Dec 12, 2013 Active CERVICALGIA Dec 12, 2013 Active LONG-TERM USE OF MEDS Dec 12, 2013 Active ALLERGIC RHINITIS Dec 12, 2013 Active REACTIVE AIRWAY DISEASE Dec 12, 2013 Active POSITIONAL VERTIGO Dec 12, 2013 Active Procedures Date Description Comments Dec 12, 2013 smoking status Never smoker Medications Medication [...] by mouth daily Dec 12, 2013 Active [id number] TRAMADOL HCL 50 MG TABS Take 1 [...] pressure, diastolic BP DIASTOLIC 86 mm Hg Results Date Description Test Name Value Reference Interpretation Status Dec 12, hemoglobin, blood HGB 16.9 g/dL 12.3-17.3 2013Dec 12, hematocrit, blood HCT 49.3 % 36.7-50.5 2013Dec 12, erythrocyte ESR 2 mm/hr 0-15 2013 sedimentation rate Dec 12, sodium, serum SODIUM 140 mmol/L [phone] Dec 12, potassium, serum POTASSIUM 4.3 mmol/L 3.3-5.0 2013Dec 12, urea nitrogen, blood BUN 18 mg/dL 10-22 2013Dec 12, creatinine, serum CREATININE 1.09 mg/dL 0.46-1.20 2013Dec 12, calcium, serum CALCIUM 9.9 mg/dL 8.6-9.8 High 2013Dec 12, cholesterol, serum CHOLESTEROL 179 mg/dl [phone] Dec 12, HDL cholesterol, HDL 48 mg/dl 26-62 2013Dec 12, LDL cholesterol, LDL 106 mg/dl 0-130 2013 serum Dec 12, alanine SGPT (ALT) 27 U/L 43 2013 aminotransferase (SGPT), serum Dec 12, aspartate SGOT (AST) 28 U/L 10-42 2013 aminotransferase (SGOT), serum Dec 12, hemoglobin A1C, HGBA1C 5.3 % 3.0-6.0 2013 blood, as % of total hemoglobin Dec 12, thyroid stimulating TSH 1.21 0.34-5.60 2013 hormone, serum uIU/mL
--- OUTSIDE RECORDS SUMMARY | 2018-02-07 15:05 | XMS REPORT | Continuity of Care Document ---
:1945 Author Organization [facility] Care Team Providers Name Role Phone MD Chato, Art Unavailable Unavailable Insurance Providers Payer name Policy type / Policy ID Covered libertarian ID Policy [place] Coverage type HUMANA - CHOICE REGIONAL (MEDICARE REPLACEME Encounters Encounter Performer Location Date Office Visit Suleman Reis MD [facility] Medical [place] [facility] Dec Practice Problems Problem Effective Dates Problem Status [...] by mouth daily Dec 12, 2013 Active [id number] TRAMADOL HCL 50 MG TABS Take 1 [...]
--- OUTSIDE RECORDS SUMMARY | 2018-02-07 15:06 | XMS REPORT | Continuity of Care Document ---
:1945 Author Organization [facility] Care Team Providers Name Role Phone MD Chato, Art Unavailable Unavailable Insurance Providers Payer name Policy type / Policy ID Covered green party ID Policy [place] Coverage type HUMANA - CHOICE REGIONAL (MEDICARE REPLACEME Encounters Encounter Performer Location Date Office Visit Suleman Reis MD [facility] Medical [place] [facility] Jun Practice Problems Problem Effective Dates Problem Status [...] Active ABDOMINAL PAIN Dec 27, 2013 Active PROSTATITIS, ACUTE Apr 12, 2014 Active PROSTATE NODULE Apr 12, 2014 Active Procedures Date Description Comments Dec 12, 2013 smoking status Never smoker Dec 27, 2013 smoking status Never smoker Apr 12, 2014 smoking status Never smoker Jun 14, 2014 smoking status Never smoker Medications Medication Instructions Start Date Status ZYRTEC-D ALLERGY & CONGESTION Take 1 tablet by mouth daily Dec 12, 2013 Active [id number] CIPROFLOXACIN HCL 500 MG TABS 1 tablet twice daily for Apr 12, 2014 Inactive infection TAMSULOSIN HCL 0.4 MG CAPS Take 1 capsule by mouth twice Dec 12, 2013 Active daily TOPIRAMATE 25 MG TABS Take 1 tablet by mouth twice Dec 12, 2013 Active daily TRAMADOL HCL 50 MG TABS Take 1 tsablet by mouth twice Dec 12, 2013 Active daily CARVEDILOL 12.5 MG TABS Take 1 tablet by mouth twice Dec 12, 2013 Active daily VENTOLIN HFA 108 (90 BASE) Use 2 puffs every 6 hours as Dec 12, 2013 Active MCG/ACT AERS needed LISINOPRIL 20 MG TABS Take 2 tablet by mouth daily Dec 12, 2013 Active Vital Signs Date Description Test Result Dec 12, 2013 height E&M - 8302-2 HEIGHT 68.75 in Dec 12, 2013 weight E&M - 3141-9 WEIGHT 257 lb Dec 12, 2013 temperature E&M TEMPERATURE 97.4 deg f Dec 12, 2013 respiratory rate E&M - 9279-1 RESP RATE 16 /min Dec 12, 2013 pulse rate E&M - 8867-4 PULSE RATE 80 /min Dec 12, 2013 blood pressure, systolic - 8480-6 BP SYSTOLIC 124 mm Hg Dec 12, 2013 blood pressure, diastolic - 8462-4 BP DIASTOLIC 86 mm Hg Dec 27, 2013 height E&M - 8302-2 HEIGHT 70 in Dec 27, 2013 weight Alexsander Smart-9 WEIGHT 262 lb Dec 27, 2013 blood pressure, systolic - 8480-6 BP SYSTOLIC 119 mm Hg Dec 27, 2013 blood pressure, diastolic - 8462-4 BP DIASTOLIC 78 mm Hg Dec 27, 2013 pulse rate E&M - 8867-4 PULSE RATE 80 /min Apr 12, 2014 weight Alexsander - Bing-9 WEIGHT 250.6 lb Apr 12, 2014 temperature E&M TEMPERATURE 97.4 deg f Apr 12, 2014 respiratory rate E&M - 9279-1 RESP RATE 16 /min Apr 12, 2014 pulse rate E&M - 8867-4 PULSE RATE 100 /min Apr 12, 2014 blood pressure, systolic - 8480-6 BP SYSTOLIC 124 mm Hg Apr 12, 2014 blood pressure, diastolic - 8462-4 BP DIASTOLIC 82 mm Hg Jun 14, 2014 weight Alexsander - Bing-9 WEIGHT 255.4 lb Jun 14, 2014 temperature E&M TEMPERATURE 98.2 deg f Jun 14, 2014 respiratory rate E&M - 9279-1 RESP RATE 16 /min Jun 14, 2014 pulse rate E&M - 8867-4 PULSE RATE 72 /min Jun 14, 2014 blood pressure, systolic - 8480-6 BP SYSTOLIC 104 mm Hg Jun 14, 2014 blood pressure, diastolic - 8462-4 BP DIASTOLIC 62 mm Hg Results Date Description Test Name Value Reference Interpretation Status Dec 12, hemoglobin, blood HGB 16.9 g/dL 12.3-17.3 2013Dec 12, hematocrit, blood HCT 49.3 % 36.7-50.5 2013Dec 12, erythrocyte ESR 2 mm/hr 0-15 2013 sedimentation rate Dec 12, sodium, serum SODIUM 140 mmol/L [phone] Dec 12, potassium, serum POTASSIUM 4.3 mmol/L 3.3-5.0 2013Dec 12, urea nitrogen, blood BUN 18 mg/dL 10-22 2013Dec 12, creatinine, serum CREATININE 1.09 mg/dL 0.46-1.20 2013Dec 12, calcium, serum CALCIUM 9.9 mg/dL 8.6-9.8 High 2013Dec 12, cholesterol, serum CHOLESTEROL 179 mg/dl [phone] Dec 12, HDL cholesterol, HDL 48 mg/dl 26-62 2013Dec 12, LDL cholesterol, LDL 106 mg/dl 0-130 2013Dec 12, alanine SGPT (ALT) 27 U/L 43 2013 aminotransferase (SGPT), serum Dec 12, aspartate SGOT (AST) 28 U/L 42 2013 aminotransferase (SGOT), serum Dec 12, hemoglobin A1C, HGBA1C 5.3 % 3.0-6.0 2013 blood, as % of total hemoglobin Dec 12, thyroid stimulating TSH 1.21 0.34-5.60 2013 hormone, serum uIU/mL
--- OUTSIDE RECORDS SUMMARY | 2018-02-07 15:06 | XMS REPORT | Continuity of Care Document ---
:[address] [facility] Care Team Providers Name Role Phone MD Chato, Art Unavailable Unavailable Insurance Providers Payer name Policy type / Policy ID Covered green party ID Policy [place] Coverage type HUMANA - CHOICE REGIONAL (MEDICARE REPLACEME Encounters Encounter Performer Location Date Lab Report Art MD Chato [facility] Medical [place] [facility] Oct 24, 2014 Practice Problems Problem Effective Dates Problem Status HYPERTENSION, BENIGN ESSENTIAL Dec 12, 2013 Active BODY MASS INDEX 35.0-35.9, ADULT Dec 12, 2013 Active GALLBLADDER DISEASE Dec 12, 2013 Active CERVICALGIA Dec 12, 2013 Active LONG-TERM USE OF MEDS Dec 12, 2013 Active ALLERGIC RHINITIS Dec 12, 2013 Active REACTIVE AIRWAY DISEASE Dec 12, 2013 Active POSITIONAL VERTIGO Dec 12, 2013 Inactive ABDOMINAL PAIN Dec 27, 2013 Inactive PROSTATITIS, ACUTE Apr 12, 2014 Inactive PROSTATE NODULE Apr 12, 2014 Inactive SINUSITIS Jun 22, 2014 Inactive PREOPERATIVE EXAMINATION Oct 24, 2014 Active ONYCHOMYCOSIS Oct 24, 2014 Active OSTEOARTHRITIS, HIP, RIGHT Oct 24, 2014 Active BENIGN PROSTATIC HYPERTROPHY, WITH OBSTRUCTION Oct 24, 2014 Active Procedures Date Description Comments Dec 12, 2013 smoking status Never smoker Dec 27, 2013 smoking status Never smoker Apr 12, 2014 smoking status Never smoker Jun 14, 2014 smoking status Never smoker Jun 22, 2014 smoking status Never smoker Oct 24, 2014 smoking status Never smoker Medications Medication Instructions Start Date Status CIPROFLOXACIN HCL 500 MG TABS 1 tablet twice daily for Apr 12, 2014 Inactive infection VENTOLIN HFA 108 (90 BASE) Use 2 puffs every 6 hours as Dec 12, 2013 Active MCG/ACT AERS needed NASACORT ALLERGY 24HR 55 MCG/ACT 2 srpay ea nostril daily (start Jun 22, 2014 Active AERO 2x daily 5 days) CEFTIN 500 MG TABS 1 tablet twice daily for 10 Jun 22, 2014 Inactive days CARVEDILOL 12.5 MG TABS Take 1 tablet by mouth daily Dec 12, 2013 Active LISINOPRIL 20 MG TABS Take tablet by mouth twice Dec 12, 2013 Active daily TRAMADOL HCL 50 MG TABS Take 1 tablet by mouth q6h prn Dec 12, 2013 Inactive pain TOPIRAMATE 25 MG TABS Take 2 tablets by mouth every Dec 12, 2013 Active AM & 1 tablet by mouth every PM ZYRTEC ALLERGY 10 MG TABS Take 1 tablet by mouth at PM Oct 24, 2014 Active TAMSULOSIN HCL 0.4 MG CAPS Take 1 capsule by mouth twice Dec 12, 2013 Active daily ZYRTEC-D ALLERGY & CONGESTION Take 1 tablet by mouth daily Dec 12, 2013 Active [id number] Vital Signs Date Description Test Result Dec [...] 70 in Dec 27, 2013 weight E&M - 3141-9 WEIGHT 262 lb Dec 27, 2013 blood pressure, systolic - 8480-6 BP SYSTOLIC 119 mm Hg Dec 27, 2013 blood pressure, diastolic - 8462-4 BP DIASTOLIC 78 mm Hg Dec 27, 2013 pulse rate E&M - 8867-4 PULSE RATE 80 /min Apr 12, 2014 weight E&M - 3141-9 WEIGHT 250.6 lb Apr 12, 2014 temperature [...] 82 mm Hg Jun 14, 2014 weight E&M - 3141-9 WEIGHT 255.4 lb Jun 14, 2014 temperature E&M TEMPERATURE 98.2 deg f Jun 14, 2014 respiratory rate E&M - 9279-1 RESP RATE 16 /min Jun 14, 2014 pulse rate E&M - 8867-4 PULSE RATE 72 /min Jun 14, 2014 blood pressure, systolic - 8480-6 BP SYSTOLIC 104 mm Hg Jun 14, 2014 blood pressure, diastolic - 8462-4 BP DIASTOLIC 62 mm Hg Jun 22, 2014 weight E&M - 3141-9 WEIGHT 251 lb Jun 22, 2014 temperature E&M TEMPERATURE 98.2 deg f Jun 22, 2014 respiratory rate E&M - 9279-1 RESP RATE 16 /min Jun 22, 2014 pulse rate E&M - 8867-4 PULSE RATE 64 /min Jun 22, 2014 blood pressure, systolic - 8480-6 BP SYSTOLIC 108 mm Hg Jun 22, 2014 blood pressure, diastolic - 8462-4 BP DIASTOLIC 58 mm Hg Oct 24, 2014 weight E&M - 3141-9 WEIGHT 248.8 lb Oct 24, 2014 temperature E&M TEMPERATURE 97.8 deg f Oct 24, 2014 respiratory rate E&M - 9279-1 RESP RATE 16 /min Oct 24, 2014 pulse rate E&M - 8867-4 PULSE RATE 69 /min Oct 24, 2014 blood pressure, systolic - 8480-6 BP SYSTOLIC 114 mm Hg Oct 24, 2014 blood pressure, diastolic - 8462-4 BP DIASTOLIC 74 mm Hg Results Date Description Test Name Value Reference Interpretation Status Dec 12, hemoglobin, blood HGB 16.9 g/dL 12.3-17.3 2013Dec 12, hematocrit, blood HCT 49.3 % 36.7-50.5 2013Dec 12, erythrocyte ESR 2 mm/hr 0-15 2013 sedimentation rate Oct 24, hemoglobin, blood HGB 17.3 g/dL 12.3-17.3 2014Oct 24, hematocrit, blood HCT 51.8 % 36.7-50.5 High 2014Dec 12, sodium, serum SODIUM 140 mmol/L [phone] Dec 12, potassium, serum POTASSIUM 4.3 mmol/L 3.3-5.0 2013Dec 12, urea nitrogen, blood BUN 18 mg/dL 10-22 2013Dec 12, creatinine, serum CREATININE 1.09 mg/dL 0.46-1.20 2013Dec 12, calcium, serum CALCIUM 9.9 mg/dL 8.6-9.8 High 2013Dec 12, cholesterol, serum CHOLESTEROL 179 mg/dl [phone] Dec 12, HDL cholesterol, HDL 48 mg/dl 26-62 2013 serum Dec 12, LDL cholesterol, LDL 106 mg/dl 0-130 2013 serum Dec 12, alanine SGPT (ALT) 27 U/L 2013 aminotransferase (SGPT), serum Dec 12, aspartate SGOT (AST) 28 U/L 2013 aminotransferase (SGOT), serum Dec 12, hemoglobin A1C, HGBA1C 5.3 % 3.0-6.0 2013 blood, as % of total hemoglobin Dec 12, thyroid stimulating TSH 1.21 0.34-5.60 2013 hormone, serum uIU/mL Oct 24, sodium, serum SODIUM 140 mmol/L [phone] Oct 24, potassium, serum POTASSIUM 4.6 mmol/L 3.3-5.0 2014Oct 24, albumin, serum ALBUMIN 4.2 g/dL 3.5-5.0 2014Oct 24, calcium, serum CALCIUM 9.3 mg/dL 8.6-9.8 2014Oct 24, creatinine, serum CREATININE 1.03 mg/dL 0.46-1.20 2014Oct 24, urea nitrogen, blood BUN 15 mg/dL -2014Oct 24, alkaline phosphatase, ALK PHOS 74 U/L 32-96 2014 serum Oct 24, aspartate SGOT (AST) 27 U/L 2014 aminotransferase (SGOT), serum Oct 24, alanine SGPT (ALT) 28 U/L 2014 aminotransferase (SGPT), serum Oct 24, international INR 1.03 null 0.8-1.5 2014 normalized ratio (INR) Oct 24, PTT patient PTT PATIENT 29.5 s 22.0-36.0 2014
--- OUTSIDE RECORDS SUMMARY | 2018-02-07 15:06 | XMS REPORT | Continuity of Care Document ---
:1945 Author Organization [facility] Care Team Providers Name Role Phone MD Chato, Art Unavailable Unavailable Insurance Providers Payer name Policy type / Policy ID Covered constitution party ID Policy [place] Coverage type HUMANA - CHOICE REGIONAL (MEDICARE REPLACEME Encounters Encounter Performer Location Date Office Visit Art MD Chato [facility] Medical [place] Family Dec Practice Problems Problem Effective Dates Problem Status HYPERTENSION, BENIGN ESSENTIAL Dec 12, 2013 Active BODY MASS INDEX 34.0-34.9, ADULT Dec 12, 2013 Active GALLBLADDER DISEASE [...] Active OSTEOARTHRITIS, HIP, RIGHT Oct 24, 2014 Inactive BENIGN PROSTATIC HYPERTROPHY, WITH OBSTRUCTION Oct 24, 2014 Active CONTACT DERMATITIS Dec 25, 2014 Active GANGLION CYST Dec 25, 2014 Active OBESITY Dec 25, 2014 Active ORTHOSTATIC HYPOTENSION Dec 25, 2014 Active Procedures Date Description Comments Dec 12, 2013 smoking status Never smoker Dec 27, 2013 smoking status Never smoker Apr 12, 2014 smoking status Never smoker Jun 14, 2014 smoking status Never smoker Jun 22, 2014 smoking status Never smoker Oct 24, 2014 smoking status Never smoker Dec 25, 2014 smoking status Never smoker Medications Medication [...] for 10 Jun 22, 2014 Inactive days LISINOPRIL 20 MG TABS Take tablet by [...] by mouth daily Dec 12, 2013 Active [id number] CARVEDILOL 12.5 MG TABS Take 1 tablet by mouth daily Dec 12, 2013 Inactive TRIAMCINOLONE ACETONIDE 0.1 % apply to affected area twice Dec 25, 2014 Active CREA daily as needed Vital Signs Date Description Test Result Dec [...] 62 mm Hg Jun 22, 2014 weight Alexsander - Bing-9 WEIGHT 251 lb Jun 22, 2014 temperature [...] 58 mm Hg Oct 24, 2014 weight Alexsander - Bing-9 WEIGHT 248.8 lb Oct 24, 2014 temperature E&M TEMPERATURE 97.8 deg f Oct 24, 2014 respiratory rate E&M - 9279-1 RESP RATE 16 /min Oct 24, 2014 pulse rate E&M - 8867-4 PULSE RATE 69 /min Oct 24, 2014 blood pressure, systolic - 8480-6 BP SYSTOLIC 114 mm Hg Oct 24, 2014 blood pressure, diastolic - 8462-4 BP DIASTOLIC 74 mm Hg Dec 25, 2014 weight Alexsander - Bing-Lan WEIGHT 238.6 lb Dec 25, 2014 temperature E&M TEMPERATURE 98.0 deg f Dec 25, 2014 respiratory rate E&M - 9279-1 RESP RATE 16 /min Dec 25, 2014 pulse rate E&M - 8867-4 PULSE RATE 106 /min Dec 25, 2014 blood pressure, systolic - 8480-6 BP SYSTOLIC 122 mm Hg Dec 25, 2014 blood pressure, diastolic - 8462-4 BP DIASTOLIC 82 mm Hg Results Date Description Test Name Value Reference Interpretation Status Dec 12, hemoglobin, blood HGB 16.9 g/dL 12.3-17.3 2013Dec 12, hematocrit, blood HCT 49.3 % 36.7-50.5 2013Dec 12, erythrocyte ESR 2 mm/hr 0-15 2013 sedimentation rate Oct 24, hemoglobin, blood HGB 17.3 g/dL 12.3-17.3 2014Oct 24, hematocrit, blood HCT 51.8 % 36.7-50.5 High 2014Dec 12, sodium, serum SODIUM 140 mmol/L [phone] Dec 12, potassium, serum POTASSIUM 4.3 mmol/L 3.3-5.0 2013Dec 12, urea nitrogen, blood BUN 18 mg/dL 10-2013Dec 12, creatinine, serum CREATININE 1.09 mg/dL 0.46-1.20 2013Dec 12, calcium, serum CALCIUM 9.9 mg/dL 8.6-9.8 High 2013Dec 12, cholesterol, serum CHOLESTEROL 179 mg/dl [phone] Dec 12, HDL cholesterol, HDL 48 mg/dl 26-62 2013Dec 12, LDL cholesterol, LDL 106 mg/dl 0-130 2013Dec 12, alanine SGPT (ALT) 27 U/L 2013 aminotransferase (SGPT), serum Dec 12, aspartate SGOT (AST) 28 U/L 2013 aminotransferase (SGOT), serum Dec 12, hemoglobin A1C, HGBA1C 5.3 % 3.0-6.0 2014 blood, as % of total hemoglobin Dec 12, thyroid stimulating TSH 1.21 0.34-5.60 2013 hormone, serum uIU/mL Oct 24, sodium, serum SODIUM 140 mmol/L [phone] Oct 24, potassium, serum POTASSIUM 4.6 mmol/L 3.3-5.0 2014Oct 24, albumin, serum ALBUMIN 4.2 g/dL 3.5-5.0 2014Oct 24, calcium, serum CALCIUM 9.3 mg/dL 8.6-9.8 2014Oct 24, creatinine, serum CREATININE 1.03 mg/dL 0.46-1.20 2014Oct 24, urea nitrogen, blood BUN 15 mg/dL 10-2014Oct 24, alkaline phosphatase, ALK PHOS 74 U/L 32-96 2014Oct 24, aspartate SGOT (AST) 27 U/L 2014 aminotransferase (SGOT), serum Oct 24, alanine SGPT (ALT) 28 U/L 2014 aminotransferase (SGPT), serum Oct 24, international INR 1.03 null 0.8-1.5 2014 normalized ratio (INR) Oct 24, PTT patient PTT PATIENT 29.5 s 22.0-36.0 2014
--- OUTSIDE RECORDS SUMMARY | 2018-02-07 15:06 | XMS REPORT | Continuity of Care Document ---
:1945 Author Organization [facility] Care Team Providers Name Role Phone MD Chato, Art Unavailable Unavailable Insurance Providers Payer name Policy type / Policy ID Covered green party ID Policy [place] Coverage type HUMANA - CHOICE REGIONAL (MEDICARE REPLACEME Encounters Encounter Performer Location Date Office Visit Suleman Reis MD [facility] Medical [place] [facility] Jun Practice Problems Problem Effective Dates [...] Active PROSTATE NODULE Apr 12, 2014 Active SINUSITIS Jun 22, 2014 Active Procedures Date Description Comments Dec 12, 2013 smoking status Never smoker Dec 27, 2013 smoking status Never smoker Apr 12, 2014 smoking status Never smoker Jun 14, 2014 smoking status Never smoker Jun 22, 2014 smoking status Never smoker Medications Medication Instructions Start Date Status ZYRTEC-D ALLERGY & CONGESTION Take 1 tablet by mouth daily Dec 12, 2013 Active [id number] CIPROFLOXACIN HCL 500 MG TABS 1 tablet [...] by mouth daily Dec 12, 2013 Active NASACORT ALLERGY 24HR 55 MCG/ACT 2 srpay ea nostril daily (start Jun 22, 2014 Active AERO 2x daily 5 days) CEFTIN 500 MG TABS 1 tablet twice daily for 10 Jun 22, 2014 Active days Vital Signs Date Description Test Result Dec 12, 2013 height E&M - 8302-2 HEIGHT 68.75 in Dec 12, 2013 weight Alexsander - 3141-9 WEIGHT 257 lb Dec 12, [...] 86 mm Hg Dec 27, 2013 height Love&M - 8302-2 HEIGHT 70 in Dec 27, 2013 weight Alexsander - 3141-9 WEIGHT 262 lb Dec 27, 2013 blood pressure, systolic - 8480-6 BP SYSTOLIC 119 mm Hg Dec 27, 2013 blood pressure, diastolic - 8462-4 BP DIASTOLIC 78 mm Hg Dec 27, 2013 pulse rate E&M - 8867-4 PULSE RATE 80 /min Apr 12, 2014 weight Alexsander - 3141-9 WEIGHT 250.6 lb Apr 12, [...] 82 mm Hg Jun 14, 2014 weight Love&Umesh - [place]1-9 WEIGHT 255.4 lb Jun 14, 2014 temperature [...] 62 mm Hg Jun 22, 2014 weight Love&Umesh - 3141-9 WEIGHT 251 lb Jun 22, [...] - 8462-4 BP DIASTOLIC 58 mm Hg Results Date Description Test Name Value Reference Interpretation Status Dec 12, hemoglobin, blood HGB 16.9 g/dL 12.3-17.3 2013Dec 12, hematocrit, blood HCT 49.3 % 36.7-50.5 2013Dec 12, erythrocyte ESR 2 mm/hr 0-15 2013 sedimentation rate Dec 12, sodium, serum SODIUM 140 mmol/L [phone] Dec 12, potassium, serum POTASSIUM 4.3 mmol/L 3.3-5.0 2013Dec 12, urea nitrogen, blood BUN 18 mg/dL 10-22 2013Dec 12, creatinine, serum CREATININE 1.09 mg/dL 0.46-1.20 2013Dec 12, calcium, serum CALCIUM 9.9 mg/dL 8.6-9.8 High 2013Dec 12, cholesterol, serum CHOLESTEROL 179 mg/dl [phone] Dec 12, HDL cholesterol, HDL 48 mg/dl [...]
--- OUTSIDE RECORDS SUMMARY | 2018-02-07 15:06 | XMS REPORT | Continuity of Care Document ---
:1945 Author Organization [facility] Care Team Providers Name Role Phone MD Chato, Art Unavailable Unavailable Insurance Providers Payer name Policy type / Policy ID Covered republican ID Policy [place] Coverage type HUMANA - CHOICE REGIONAL (MEDICARE REPLACEME Encounters Encounter Performer Location Date Lab Report Art MD Chato [facility] Medical [place] Family Oct 24, 2014 Practice Problems Problem [...] by mouth daily Dec 12, 2013 Active [id number] Vital Signs Date Description Test Result Dec [...] Dec 12, sodium, serum SODIUM 140 mmol/L [phone] Dec 12, potassium, serum POTASSIUM 4.3 mmol/L 3.3-5.0 2013Dec 12, urea nitrogen, blood BUN 18 mg/dL 10-22 2013Dec 12, creatinine, serum CREATININE 1.09 mg/dL 0.46-1.20 2013Dec 12, calcium, serum CALCIUM 9.9 mg/dL 8.6-9.8 High 2013Dec 12, cholesterol, serum CHOLESTEROL 179 mg/dl [phone] Dec 12, HDL cholesterol, HDL 48 mg/dl 26-62 2013 serum Dec 12, LDL cholesterol, LDL 106 mg/dl 0-130 2013 serum Dec 12, alanine SGPT (ALT) 27 U/L 11-43 2013 aminotransferase (SGPT), serum Dec 12, aspartate SGOT (AST) 28 U/L 2013 aminotransferase (SGOT), serum Dec 12, hemoglobin A1C, HGBA1C 5.3 % 3.0-6.0 2013 blood, as % of total hemoglobin Dec 12, thyroid stimulating TSH 1.21 0.34-5.60 2013 hormone, serum uIU/mL
--- OUTSIDE RECORDS SUMMARY | 2018-02-07 15:06 | XMS REPORT | Continuity of Care Document ---
:1945 Author Organization [facility] Care Team Providers Name Role Phone MD Chato, Art Unavailable Unavailable Insurance Providers Payer name Policy type / Policy ID Covered republican ID Policy [place] Coverage type HUMANA - CHOICE REGIONAL (MEDICARE REPLACEME Encounters Encounter Performer Location Date Lab Report Art MD Chato [facility] Medical [place] Family Apr 12, 2014 Practice Problems Problem Effective Dates Problem [...] Apr 12, 2014 smoking status Never smoker Medications Medication Instructions Start Date Status ZYRTEC-D ALLERGY & CONGESTION Take 1 tablet by mouth daily Dec 12, 2013 Active [id number]-NAB CIPROFLOXACIN HCL 500 MG TABS 1 tablet twice daily for Apr 12, 2014 Active infection TAMSULOSIN HCL 0.4 MG CAPS Take 1 capsule by mouth twice Dec 12, 2013 Active daily TOPIRAMATE 25 MG TABS Take 1 tablet by mouth twice Dec 12, 2013 Active daily TRAMADOL HCL 50 MG TABS Take 1 tsablet by mouth twice Dec 12, 2013 Active daily LISINOPRIL 20 MG TABS Take 1 tablet by mouth daily Dec 12, 2013 Active CARVEDILOL 12.5 MG TABS Take 1 tablet by mouth twice Dec 12, 2013 Active daily VENTOLIN HFA 108 (90 BASE) Use 2 puffs every 6 hours as Dec 12, 2013 Active MCG/ACT AERS needed Vital Signs Date Description Test Result [...] Dec 12, sodium, serum SODIUM 140 mmol/L [phone] Dec 12, potassium, serum POTASSIUM 4.3 mmol/L 3.3-5.0 2013Dec 12, urea nitrogen, blood BUN 18 mg/dL 10-22 2013Dec 12, creatinine, serum CREATININE 1.09 mg/dL 0.46-1.20 2013Dec 12, calcium, serum CALCIUM 9.9 mg/dL 8.6-9.8 High 2013Dec 12, cholesterol, serum CHOLESTEROL 179 mg/dl [phone] Dec 12, HDL cholesterol, HDL 48 mg/dl 26-62 2013Dec 12, LDL cholesterol, LDL 106 mg/dl 0-130 2013Dec 12, alanine SGPT (ALT) 27 U/L 11-43 2013 aminotransferase (SGPT), serum Dec 12, aspartate SGOT (AST) 28 U/L 2013 aminotransferase (SGOT), serum Dec 12, hemoglobin A1C, HGBA1C 5.3 % 3.0-6.0 2013 blood, as % of total hemoglobin Dec 12, thyroid stimulating TSH 1.21 0.34-5.60 2013 hormone, serum uIU/mL
--- NOTE | 2018-02-07 16:13 | RAD REPORT ---
EXAM DESCRIPTION: CT - Ct Stroke Brain Wo Cont - 02/07/2018 4:03 pm CLINICAL HISTORY: TIA COMPARISON: Sinus Wo Cont dated 04/05/2017; Orbit Face W/Wo Cont dated 04/16/2017 TECHNIQUE: All CT scans are performed using dose optimization technique as appropriate and may inclu de automated exposure control or mA/KV adjustment according to patient size. FINDINGS: No intracranial hemorrhage, hydrocephalus or extra-axial fluid collection.No areas of brai n edema or evidence of midline shift. Fluid level is present in the left maxillary antrum. Mucoperiosteal thickening is seen in several of the other paranasal sinuses. The calvarium is intact. IMPRESSION: No acute intracranial abnormality. Left maxillary sinusitis.
--- NOTE | 2018-02-07 16:29 | RAD REPORT ---
EXAM DESCRIPTION: RAD - Chest Single View - 02/07/2018 4:21 pm CLINICAL HISTORY: problem concentration Chest pain. COMPARISON: No comparisons FINDINGS: Portable technique limits examination quality. The lungs are underinflated which results in vascular crowding. The heart is normal in size. No displ aced fractures. IMPRESSION: Underinflated lungs.
[2018-02-07] MEDS ORDERED: NA CHLORIDE 0.9% 1,000 ML ONE (16:41)
[2018-02-07 16:45] LABS: Absolute Lymphocytes (CBC) 1.1 K/uL (0.7-4.9); Absolute Neutrophil 6.4 K/uL (1.8-8.0); Basophils % 0.9 % (0-1.3); Eosinophils % 1.2 % (0-4.4); Hematocrit 44.3 % (39.6-49.0); Lymphocytes % 12.3 % (15.3-44.8); MCV 89.4 fL (80-100); MPV 7.3 fL (7.6-11.3); Monocytes % 11.4 % (3.3-12.3); RBC Red Blood Cell Count 4.96 M/uL (4.33-5.43)
[2018-02-07 16:53] LABS: Protime INR 1.23
[2018-02-07 17:08] LABS: Barbiturates NEGATIVE (NEGATIVE); Benzodiazepines NEGATIVE (NEGATIVE); Cocaine NEGATIVE (NEGATIVE); METHAMPHETAM NEGATIVE (NEGATIVE); Methadone NEGATIVE (NEGATIVE); Opiates NEGATIVE (NEGATIVE); Phencyclidine NEGATIVE (NEGATIVE); THC Cannibis NEGATIVE (NEGATIVE)
[2018-02-07 17:09] LABS: Urine RBC <5 /HPF (NONE SEEN)
[2018-02-07 17:10] LABS: Calcium Oxalate Crystals- Ur FEW (NONE SEEN); Urine Bacteria <20 /HPF (NONE SEEN); Urine Culture Reflex Order NOT NEEDED; Urine Mucus SLIGHT /HPF (NONE SEEN)
[2018-02-07 17:14] LABS: ALT/SGPT 29 U/L (12-78); AST/SGOT 20 U/L (15-37); Albumin 2.7 g/dL (3.4-5.0); Alkaline Phosphatase 82 U/L (45-117); Amylase Level 73 U/L (25-115); BUN Blood Urea Nitrogen 20 mg/dL (7-18); Bicarbonate 21 mmol/L (21-32); Bilirubin Direct 0.2 mg/dL (0-0.2); Bilirubin Total 0.3 mg/dL (0.2-1.0); CKMB Creatine Kinase MB 2.4 ng/mL (0.3-3.6); Creatine Phosphokinase 132 U/L (39-308); Glucose Level 89 mg/dL (74-106); Lipase 320 U/L (73-393); Magnesium 2.2 mg/dL (1.8-2.4); Potassium 3.8 mmol/L (3.5-5.1); Protein, Total 7.4 g/dL (6.4-8.2); Sodium Level 139 mmol/L (136-145); Troponin (Emerg Dept Use Only) < 0.02 ng/mL (0.0-0.045)
--- NOTE | 2018-02-07 17:32 | ER ---
Nurse's Notes [facility] Name: Shane Frank Age: 72 yrs Sex: Male : 1945 Arrival Date: 02/07/2018 Time: 14:58 Bed 28 Private MD: Diagnosis: Transient cerebral ischemic attack, unspecified Presentation: 02/07 15:06 Presenting complaint: Patient states: Intermittent confusion x 3 days. reports he hb seemed very confused last night at 1800. 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 Transition of care: patient was not received from another setting of care. Onset of symptoms was February 05, 2018. Risk Assessment: Do you want to hurt yourself or someone else? Patient reports no desire to harm self or others. Care prior to arrival: None. 15:06 Method Of Arrival: Ambulatory hb 15:06 Acuity: SURESH 2 hb 15:15 Initial Sepsis Screen: Does the patient meet any 2 criteria? HR > 90 bpm. No. Patient's kr2 initial sepsis screen is negative. Does the patient have a suspected source of infection? No. Patient's initial sepsis screen is negative. Historical: - Allergies: 15:10 No Known Allergies; hb - PMHx: 15:10 Hypertension; hb - Immunization history:: Adult Immunizations up to date. - Social history:: Smoking status: Patient/guardian denies using tobacco, Patient/guardian denies using alcohol, street drugs, The patient lives alone, with family. - Ebola Screening: : No symptoms or risks identified at this time. - Family history:: not pertinent. Screenin:15 Abuse screen: Denies threats or abuse. Denies injuries from another. Nutritional kr2 screening: No deficits noted. Tuberculosis screening: No symptoms or risk factors identified. Fall Risk Gait- Weak (10 pts.). Assessment: 15:15 General: Appears in no apparent distress. comfortable, well groomed, well developed, kr2 well nourished, Behavior is calm, cooperative, appropriate for age. Pain: Denies pain. Neuro: Level of Consciousness is awake, alert, obeys commands, Oriented to person, place, time, situation, Appropriate for age Casing Tier are equal bilaterally Moves all extremities. Gait is unsteady, Speech is normal, Facial symmetry appears normal, Pupils are PERRLA, Intact Reports "not feeling right, a little confused at times". Denies blurred vision. Cardiovascular: Denies chest pain, Capillary refill < 3 seconds in bilateral fingers Patient's skin is warm and dry. Rhythm is regular. Respiratory: Reports cough that is non-productive, persistent Airway is patent Respiratory effort is even, unlabored, Respiratory pattern is regular, symmetrical. GI: Abdomen is round non-distended, Bowel sounds present X 4 quads. Abd is soft and non tender X 4 quads. Patient currently denies nausea. EENT: Oral mucosa is moist. Derm: Skin is intact, is healthy with good turgor, Skin is pink, warm \\T\\ dry. Musculoskeletal: Circulation, motion, and sensation intact. 16:30 Reassessment: Patient appears in no apparent distress at this time. Patient and/or kr2 family updated on plan of care and expected duration. Pain level reassessed. Patient is alert, oriented x 3, equal unlabored respirations, skin warm/dry/pink. Patient denies pain at this time. 17:30 Reassessment: Patient appears in no apparent distress at this time. Patient and/or kr2 family updated on plan of care and expected duration. Pain level reassessed. Patient is alert, oriented x 3, equal unlabored respirations, skin warm/dry/pink. Patient denies pain at this time. 18:12 Reassessment: Patient appears in no apparent distress at this time. Patient and/or kr2 family updated on plan of care and expected duration. Pain level reassessed. Patient is alert, oriented x 3, equal unlabored respirations, skin warm/dry/pink. Patient denies pain at this time. 19:30 Reassessment: Patient appears in no apparent distress at this time. Patient and/or kr2 family updated on plan of care and expected duration. Pain level reassessed. Patient is alert, oriented x 3, equal unlabored respirations, skin warm/dry/pink. Patient denies pain at this time. Patient states feeling better. Vital Signs: 15:08 BP 125 / 92; Pulse 121; Resp 16; Temp 98.7; Pulse Ox 93% on R/A; Pain 0/10; hb 16:30 BP 158 / 95; Pulse 70; Resp 19; Pulse Ox 97% on 2 lpm NC; kr2 17:30 BP 113 / 73; Pulse 99; Resp 19; Pulse Ox 97% on 2 lpm NC; kr2 19:30 BP 103 / 73; Pulse 103; Resp 18; Pulse Ox 96% on R/A; kr2 20:27 BP 107 / 71; Pulse 103; Resp 19; Pulse Ox 96% on 2 lpm NC; kr2 ED Course: 14:58 Patient arrived in ED. as 15:08 Triage completed. hb 15:09 Arm band placed on right wrist. hb 15:15 Dianne Jacques, RN is Primary Nurse. kr2 15:15 Patient has correct armband on for positive identification. Bed in low position. Call kr2 light in reach. Side rails up X 1. bus monitor on. Pulse ox on. NIBP on. 15:23 Hesham William MD is Attending Physician. ma2 16:03 CT Stroke Brain w/o Contrast In Process Unspecified. EDMS 16:20 Urine collected: clean catch specimen, clear, rachael colored. Inserted saline lock: 20 kr2 gauge in left forearm, using aseptic technique. Blood collected. 16:21 Stroke CXR 1 View In Process Unspecified. EDMS 17:03 EKG done, by water pollution control technician. reviewed by Hesham William MD. 3 18:46 Stacey Perez MD is Hospitalizing Provider. ma2 20:31 No provider procedures requiring assistance completed. Patient admitted, IV remains in kr2 place. Administered Medications: 16:46 Drug: NS 0.9% 1000 ml Route: IV; Rate: 1 bolus; Site: left forearm; kr2 18:00 Follow up: Response: No adverse reaction; IV Status: Completed infusion kr2 Point of Care Testing: Blood Glucose: 16:30 Blood Glucose: 86 mg/dL; kr2 Ranges: Outcome: 17:31 ER care complete, transfer ordered by . ma2 18:47 Decision to Hospitalize by Provider. ma2 20:32 Admitted to Tele accompanied by tech, via wheelchair, room 422, with chart, Report kr2 called to Anni 20:32 Condition: good 20:32 Instructed on the need for admit, Demonstrated understanding of instructions. 20:43 Patient left the ED. kr2 Signatures: Dispatcher [employer] Carmen Dupree Heather, RN RN Dianne Jacques, JUAN RN kr2 Hesham William MD MD ma2 Michelle Belle 3 Corrections: (The following items were deleted from the chart) 15:03 Presenting complaint: hb hb 15: Acuity: SURESH 3 hb hb
--- NOTE | 2018-02-07 17:32 | EDPHYS ---
Physician Documentation [facility] Name: Shane Frank Age: 72 yrs Sex: Male : 1945 Arrival Date: 02/07/2018 Time: 14:58 Bed 28 Private MD: ED Physician Hesham William HPI: 02/07 15:50 This 72 yrs old Male presents to ER via Ambulatory with complaints of Arm ma2 Pain, Disoriented. 15:51 The patient presents with confusion, disorientation, to place, to time, trouble ma2 concentrating. Onset: The symptoms/episode began/occurred gradually, 1 day(s) ago. Possible causes: CVA or TIA, low blood sugar, sepsis. Associated signs and symptoms: Pertinent positives: ataxia, Pertinent negatives: abdominal pain, blurred vision, chest pain, combativeness, diaphoresis, diarrhea, headache, lightheadedness, numbness, palpitations, shortness of breath. Current symptoms: In the emergency department the patient's symptoms are unchanged from the initial presentation. Patient's baseline: Neuro: alert and fully oriented. Severity of symptoms: At their worst the symptoms were mild, in the emergency department the symptoms are unchanged. The patient has not experienced similar symptoms in the past. Historical: - Allergies: 15:10 No Known Allergies; hb - PMHx: 15:10 Hypertension; hb - Immunization history:: Adult Immunizations up to date. - Social history:: Smoking status: Patient/guardian denies using tobacco, Patient/guardian denies using alcohol, street drugs, The patient lives alone, with family. - Ebola Screening: : No symptoms or risks identified at this time. - Family history:: not pertinent. ROS: 15:51 Constitutional: Negative for fever, chills, and weight loss, ENT: Negative for injury, ma2 pain, and discharge, Cardiovascular: Negative for chest pain, palpitations, and edema, Respiratory: Negative for shortness of breath, cough, wheezing, and pleuritic chest pain, Abdomen/GI: Negative for abdominal pain, nausea, diarrhea, and constipation, : Negative for injury, bleeding, discharge, and swelling, MS/Extremity: Negative for injury and deformity. 15:51 Neuro: Positive for altered mental status, Negative for dizziness, loss of consciousness, seizure activity, speech changes, tremor, visual changes. Exam: 15:51 Constitutional: This is a well developed, well nourished patient who is awake, alert, ma2 and in no acute distress. Head/Face: Normocephalic, atraumatic. Chest/axilla: Normal chest wall appearance and motion. Nontender with no deformity. No lesions are appreciated. Cardiovascular: Regular rate and rhythm with a normal S1 and S2. No gallops, murmurs, or rubs. Normal PMI, no JVD. No pulse deficits. Respiratory: Lungs have equal breath sounds bilaterally, clear to auscultation and percussion. No rales, rhonchi or wheezes noted. No increased work of breathing, no retractions or nasal flaring. Abdomen/GI: Soft, non-tender, with normal bowel sounds. No distension or tympany. No guarding or rebound. No evidence of tenderness throughout. 15:51 Neuro: Orientation: Not oriented to time, Mentation: Memory: Cranial nerves: Cerebellar function: + bilateral horizontal nystagmus , Motor: strength is 5/5 in all extremities, Sensation: is normal, Gait: Vital Signs: 15:08 BP 125 / 92; Pulse 121; Resp 16; Temp 98.7; Pulse Ox 93% on R/A; Pain 0/10; hb 16:30 BP 158 / 95; Pulse 70; Resp 19; Pulse Ox 97% on 2 lpm NC; kr2 17:30 BP 113 / 73; Pulse 99; Resp 19; Pulse Ox 97% on 2 lpm NC; kr2 19:30 BP 103 / 73; Pulse 103; Resp 18; Pulse Ox 96% on R/A; kr2 20:27 BP 107 / 71; Pulse 103; Resp 19; Pulse Ox 96% on 2 lpm NC; kr2 MDM: 15:23 Patient medically screened. ma2 15:51 Differential Diagnosis: electrolyte abnormality, alcohol intoxication, hypoglycemia, ma2 intracranial bleed, pneumonia, TIA, UTI, volume depletion. 17:29 Data reviewed: vital signs, nurses notes, EMS record, lab test result(s), EKG, ma2 radiologic studies. Counseling: I had a detailed discussion with the patient and/or guardian regarding: the historical points, exam findings, and any diagnostic results supporting the discharge/admit diagnosis, the presence of at least one elevated blood pressure reading (>120/80) during this emergency department visit, the need to transfer to another facility, likely TIA, CTH wnl lab and CXR wnl, will transfer for higher level of care as no neurology available at this hospital. . 18:47 ED course: discussed with dr. dickinson and he agree to see him tomorrow. al2 19:41 Counseling: I had a detailed discussion with the patient and/or guardian regarding: ma2 discussed by dr. liu. 02/07 15:50 Order name: CPK al2 02/07 15:50 Order name: Ckmb al2 02/07 15:50 Order name: UDS al2 02/07 15:50 Order name: Troponin (emerg Dept Use Only) al2 02/07 15:50 Order name: Magnesium [facility] 02/07 15:50 Order name: Lipase al2 02/07 15:50 Order name: Hepatic Function [facility] 02/07 15:50 Order name: Amylase, Serum al2 02/07 15:50 Order name: Basic Metabolic Panel; Complete Time: 17:48 [facility] 02/07 15:50 Order name: CBC with Diff; Complete Time: 17:08 [facility] 02/07 15:50 Order name: Protime (+inr); Complete Time: 17:08 [facility] 02/07 15:50 Order name: Ptt, Activated; Complete Time: 17:08 [facility] 02/07 15:51 Order name: Creatine Phosphokinase; Complete Time: 17:48 [facility] 02/07 15:50 Order name: Call for Old EKG [facility] 02/07 15:50 Order name: CT Stroke Brain w/o Contrast; Complete Time: 16:47 [facility] 02/07 15:50 Order name: Stroke CXR 1 View; Complete Time: 16:47 [facility] 02/07 15:50 Order name: EKG; Complete Time: 15:51 [facility] 02/07 15:50 Order name: Accucheck; Complete Time: 16:25 [facility] 02/07 15:50 Order name: Cardiac monitoring; Complete Time: 16:25 [facility] 02/07 15:51 Order name: CKMB Creatine Kinase MB; Complete Time: 17:48 EDMS 02/07 15:51 Order name: Urine Drug Screen; Complete Time: 17:14 EDMS 02/07 15:51 Order name: Troponin (Emerg Dept Use Only); Complete Time: 17:48 EDMS 02/07 15:51 Order name: Magnesium; Complete Time: 17:48 EDMS 02/07 15:51 Order name: Lipase; Complete Time: 17:48 EDMS 02/07 15:51 Order name: Liver (Hepatic) Function; Complete Time: 17:48 EDMS 02/07 15:51 Order name: Amylase Level; Complete Time: 17:48 EDMS 02/07 15:56 Order name: Urine Microscopic Only; Complete Time: 17:14 ma2 02/07 17:09 Order name: Urine Dipstick--Ancillary (enter results) bd 02/07 15:50 Order name: EKG - Nurse/Tech; Complete Time: 16:47 ma2 02/07 15:50 Order name: IV Saline Lock; Complete Time: 16:24 ma2 02/07 15:50 Order name: Labs collected and sent; Complete Time: 16:24 ma2 02/07 15:50 Order name: NPO; Complete Time: 16:24 ma2 02/07 15:50 Order name: O2 Per Protocol; Complete Time: 16:25 ma2 02/07 15:50 Order name: O2 Sat Monitoring; Complete Time: 16:25 ma2 02/07 15:50 Order name: Stroke Swallow Screen; Complete Time: 16:47 ma2 02/07 15:56 Order name: Urine Dipstick-Ancillary (obtain specimen); Complete Time: 16:46 ma2 Administered Medications: 16:46 Drug: NS 0.9% 1000 ml Route: IV; Rate: 1 bolus; Site: left forearm; kr2 18:00 Follow up: Response: No adverse reaction; IV Status: Completed infusion kr2 Point of Care Testing: Blood Glucose: 16:30 Blood Glucose: 86 mg/dL; kr2 Ranges: Critical Glucose Levels:Adult <50 mg/dl or >400 mg/dl <40 mg/dl or >180 mg/dl Disposition: 02/07/18 18:47 Hospitalization ordered by Stacey Perez for Observation. Preliminary diagnosis is Transient cerebral ischemic attack, unspecified. - Bed requested for Telemetry/MedSurg (observation). - Status is Observation. kr2 - Condition is Stable. - Problem is new. - Symptoms are unchanged. UTI on Admission? No Signatures: Dispatcher [employer] [facility] Desire Yo RN RN Saba Grigsby, RN RN Dianne Jacques, RN RN kr2 Hesham William MD MD ma2 Corrections: (The following items were deleted from the chart) 16:04 15:51 URINALYSIS+U.LAB.BRZ ordered. [facility] 17:49 17:31 02/07/2018 17:31 Transfer ordered to Other Acute Care Facility. Diagnosis is ma2 Transient cerebral ischemic attack, unspecified. Reason for transfer: Higher level of care. Accepting physician is na. Condition is Stable. Problem is new. Symptoms are unchanged. ma2 18:46 17:49 02/07/2018 17:31 Transfer ordered to Other Acute Care Facility. Diagnosis is ma2 Transient cerebral ischemic attack, unspecified. Reason for transfer: Higher level of care. Accepting physician is Dr. Schaffer, neurologist. Condition is Stable. Problem is new. Symptoms are unchanged. ma2 19:52 18:47 Hospitalization Ordered by Stacey Perez MD for Observation. Preliminary mw diagnosis is Transient cerebral ischemic attack, unspecified. Bed requested for Telemetry/MedSurg (observation). Status is Observation. Condition is Stable. Problem is new. Symptoms are unchanged. UTI on Admission? No. ma2 20:43 19:52 02/07/2018 18:47 Hospitalization Ordered by Stacey Perez MD for Observation. kr2 Preliminary diagnosis is Transient cerebral ischemic attack, unspecified. Bed requested for Telemetry/MedSurg (observation). Status is Observation. Condition is Stable. Problem is new. Symptoms are unchanged. UTI on Admission? No.
--- NOTE | 2018-02-07 19:40 | EKG ---
Test Date: 2018-02-07 Test Time: 16:45:53 House Piping Inspector: TOBIN MEASUREMENT RESULTS: Intervals: Rate: 101 [place]: 190 QRSD: 92 QT: 362 QTc: 469 Siler: P: 26 [place]: 190 QRS: -31 T: 9 INTERPRETIVE STATEMENTS: Sinus tachycardia Left axis deviation Abnormal ECG Compared to ECG 05/25/2017 10:44:15 Atrial premature complex(es) no longer present Ventricular premature complex(es) no longer present Electronically Signed On 02-07-18 19:39:23 CDT by Martin Morin
[2018-02-07 20:13] LABS: Urine Blood NEGATIVE (NEG); Urine Glucose NEGATIVE (NEG); Urine Protein 1+ (NEG); Urine Specific Gravity 1.025 (1.005-1.030)
[2018-02-07] MEDS ORDERED: ONDANSETRON 4 MG/2 ML VIAL IV PRN (20:23)
--- NOTE | 2018-02-07 20:38 | P.HP ---
Certification for Inpatient Patient admitted to: Observation With expected LOS: <2 Midnights Practitioner: I am a practitioner with admitting privileges, knowledge of patient current condition, hospital course, and medical plan of care. Services: Services provided to patient in accordance with Admission requirements found in Title 42 Section 412.3 of the Code of Federal Regulations Patient History Date of Service: 02/07/18 Reason for admission: Da History of Present Illness: Mr Frank is a 72-year-old gentleman with history of chronic seen ascites, hypertension, who start last night feeling more confused and disoriented. 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 He he denied any numbness, tingling or weakness in any of his limbs. He denied also blurred vision or dizziness. Since the symptoms persist, his told him to come to the ER. CT of the head without contrast was negative for any acute abnormality. On physical exam, he has horizontal nystagmus to the left, and ataxia. EKG shows sinus tachycardia at 120s. Lab work remarkable for elevated BUN. Allergies No Known Allergies Allergy (Verified 05/25/17 10:49) Home medications list reviewed: Yes Home Medications: Ascorbic Acid [Vitamin C] 500 mg PO DAILY 05/25/17 Aspirin [Aspirin EC 81 MG] 81 mg PO DAILY 05/25/17 Cetirizine HCl/Pseudoephedrine [Zyrtec-D Tablet] 1 each PO DAILY 05/25/17 Cholecalciferol (Vitamin D3) [Vitamin D 5,000 Iu Cap] 5,000 unit PO DAILY Fish Oil/Dha/Epa [Fish Oil 1,200 mg Fish Oil] 1 each PO DAILY 05/25/17 Lisinopril [Prinivil] 20 mg PO DAILY 05/25/17 Tamsulosin HCl 0.4 mg PO DAILY 05/25/17 Topiramate [Topamax] 25 mg PO DAILY 05/25/17 Vit A/Vit C/Vit E/Zinc/Copper [Icaps Areds Formula Tablet] 1 each PO DAILY 05/25 - Past Medical/Surgical History -: Chronic sinusitis -: Hypertension -: Sinus surgery - Family History Family History: Reviewed- Non-Contributory - Social History Smoking Status: Never smoker Alcohol use: Yes CD- Drugs: No Place of Residence: Home Review of Systems 10-point ROS is otherwise unremarkable Physical Examination - Physical Exam General: Alert, In no apparent distress, Oriented x3 HEENT: Atraumatic, PERRLA, Mucous membr. moist/pink, EOMI, Sclerae nonicteric Neck: Supple, 2+ carotid pulse no bruit, No LAD, Without JVD or thyroid abnormality Respiratory: Clear to auscultation bilaterally, Normal air movement Cardiovascular: Regular rate/rhythm, Normal S1 S2 Gastrointestinal: Normal bowel sounds, No tenderness Musculoskeletal: No tenderness Integumentary: No rashes Neurological: Normal speech, Normal strength at 5/5 x4 extr, Normal tone, Normal affect, Other (horizontal nystagmus to the left) Lymphatics: No axilla or inguinal lymphadenopathy - Studies Laboratory Data (last 24 hrs) 02/07/18 16:20: PT 14.5 H, INR 1.23, APTT 29.8 02/07/18 16:20: WBC 8.6, Hgb 15.4, Hct 44.3, Plt Count 434 H 02/07/18 16:20: Sodium 139, Potassium 3.8, BUN 20 H, Creatinine 1.10, Glucose 89 , Magnesium 2.2, Total Bilirubin 0.3, AST 20, ALT 29, Alkaline Phosphatase 82, Amylase 73, Lipase 320 Assessment and Plan - Problems (Diagnosis) (1) TIA (transient ischemic attack) Current Visit: Yes Status: Acute (2) HTN (hypertension) Current Visit: Yes Status: Acute Qualifiers: Hypertension type: essential hypertension Qualified Code(s): I10 - Essential (primary) hypertension - Plan The patient will be admitted to the hospital due to TIA vs Stroke. Will order aspirin, statins, bilateral carotid Doppler, MRI of the brain, echocardiogram, PT evaluation, Neurology consult. - Advance Directives Does patient have a Living Will: No Does patient have a Durable POA for Healthcare: No - Code Status/Comfort Care Code Status Assessed: Yes Code Status: Full Code
[2018-02-07] MEDS ORDERED: ATORVASTATIN 20 MG TAB PO SCH (21:00)
[2018-02-07 21:57] VITALS: O2SAT 96
--- NOTE | 2018-02-07 22:34 | RAD REPORT ---
EXAM DESCRIPTION: US - CP - 02/07/2018 10:26 pm CLINICAL HISTORY: TIA COMPARISON: None. TECHNIQUE: Real-time sonographic evaluation of both carotid systems was performed. Doppler interroga tion was performed with waveform tracing bilaterally. FINDINGS: Normal high resistance waveforms are noted in both external carotid arteries. The common c arotid arteries and internal carotid arteries show normal low resistance waveforms. Focal calcified plaquing present left carotid bulb. No significant luminal narrowing is seen. No sign ificant right-sided plaquing. Peak systolic and end diastolic velocity values and the ICA/CCA ratios are in the non-hemodynamically significant range. Antegrade flow seen in both vertebral arteries. Velocity values and ratios were recorded and are retained in the patient's imaging records. IMPRESSION: No significant atherosclerotic changes noted. No evidence of a hemodynamically significant stenosis.
[2018-02-07] MEDS: NA CHLORIDE 0.9% 1,000 ML IV SCH (22:44)
[2018-02-07 23:34] VITALS: BMI 31.7
[2018-02-08 05:10] LABS: Absolute Monocytes 1.2 K/uL (0.1-1.3); Absolute Neutrophil 8.6 K/uL (1.8-8.0); Albumin 2.4 g/dL (3.4-5.0); Basophils % 0.5 % (0-1.3); Bilirubin Total 0.4 mg/dL (0.2-1.0); Eosinophils % 0.9 % (0-4.4); Lymphocytes % 8.9 % (15.3-44.8); MCV 89.9 fL (80-100); MPV 7.3 fL (7.6-11.3); Monocytes % 10.6 % (3.3-12.3); Potassium 3.9 mmol/L (3.5-5.1); Protein, Total 6.7 g/dL (6.4-8.2); RBC Red Blood Cell Count 4.45 M/uL (4.33-5.43)
[2018-02-08] MEDS ORDERED: HYDROCODONE/APAP 7.5/325 MG TAB PO PRN (07:40)
[2018-02-08] MEDS ORDERED: TRAMADOL HCL 50 MG TAB PO PRN (07:40)
[2018-02-08] MEDS ORDERED: ENOXAPARIN 40 MG/0.4 ML SQ SCH (09:00)
[2018-02-08] MEDS ORDERED: FOLIC ACID 1 MG TABLET PO SCH (09:00)
[2018-02-08] MEDS ORDERED: LISINOPRIL 5 MG TAB PO SCH (09:00)
[2018-02-08] MEDS ORDERED: TOPIRAMATE 25 MG TAB PO SCH (09:00)
[2018-02-08] MEDS ORDERED: CLOPIDOGREL 75 MG TABLET PO SCH (09:00)
[2018-02-08] MEDS ORDERED: LISINOPRIL 20 MG TAB PO SCH (09:00)
[2018-02-08] MEDS ORDERED: ASPIRIN EC 81 MG TAB PO SCH (09:00)
[2018-02-08] MEDS: NA CHLORIDE 0.9% 1,000 ML IV SCH (10:27)
--- NOTE | 2018-02-08 10:51 | RAD REPORT ---
EXAM DESCRIPTION: MRI - MRA Head Wo Cont - 02/08/2018 9:27 am CLINICAL HISTORY: TIA COMPARISON: None. TECHNIQUE: Magnetic resonance angiogram of the head was performed. 3D MIP reconstruction performed FINDINGS: The visualized anterior cerebral, middle cerebral, posterior cerebral, basilar and distal internal carotid arteries do not demonstrate a significant stenosis. An aneurysm is not seen IMPRESSION: Unremarkable MRA head
--- NOTE | 2018-02-08 10:55 | RAD REPORT ---
EXAM DESCRIPTION: MRI - Brain W/Wo Cont - 02/08/2018 9:28 am CLINICAL HISTORY: CVA COMPARISON: MRA Head Wo Cont dated 02/08/2018; Ct Stroke Brain Wo Cont dated 02/07/2018 TECHNIQUE: Multi-sequence, multiplanar MR imaging of the brain was performed with contrast. FINDINGS: No intracranial hemorrhage, hydrocephalus, extra-axial fluid collection or acute infarctio n.Minimal T2 and FLAIR hyperintensity in the periventricular deep white matter. No edema or shift of midline structures. No intracranial mass. DWI is negative for acute CVA. Multifocal paranasal sinus opacification is present with air-fluid level in the left maxillary antrum . Post-contrast images show no abnormal enhancement to suggest tumor or infection. IMPRESSION: Negative for acute CVA or other acute intracranial abnormality. No pathologic post-contrast enhancement suspected. Multifocal paranasal sinus opacification. Acute left maxillary sinusitis.
--- NOTE | 2018-02-08 11:00 | RAD REPORT ---
EXAM DESCRIPTION: MRI - MRA Neck W/Wo Cont - 02/08/2018 9:28 am CLINICAL HISTORY: CVA COMPARISON: Carotid Artery Bilateral dated 02/07/2018 FINDINGS: Contrast enhance 2D [id number] MR angiography of the neck vessels was performed. No significant carotid stenosis is identified. Forward flow is seen in codominant vertebral arteries. IMPRESSION: Unremarkable study.
--- NOTE | 2018-02-08 12:29 | P.PN ---
Subjective Date of Service: 02/08/18 Primary Care Provider: JARET Blanc([place], [place]) Chief Complaint: Confusion Subjective: Doing well Physical Examination - Vital Signs Temperature: 97.9 F Blood Pressure: 123/89 Pulse: 90 Respirations: 18 Pulse Ox (%): 94 - Physical Exam General: Alert, In no apparent distress, Oriented x3, Cooperative HEENT: Atraumatic Neck: Supple Respiratory: Clear to auscultation bilaterally, Normal air movement Cardiovascular: Normal pulses, Regular rate/rhythm Gastrointestinal: Normal bowel sounds, Soft and benign, Non-distended, No tenderness, No masses, No rebound, No guarding Musculoskeletal: No erythema, No tenderness, No warmth Integumentary: No tenderness/swelling, No erythema, No warmth, No cyanosis Neurological: Normal speech, Normal strength at 5/5 x4 extr, Normal tone, Normal affect - Studies Laboratory Data (last 24 hrs) 02/07/18 16:20: PT 14.5 H, INR 1.23, APTT 29.8 02/07/18 16:20: WBC 8.6, Hgb 15.4, Hct 44.3, Plt Count 434 H 02/07/18 16:20: Sodium 139, Potassium 3.8, BUN 20 H, Creatinine 1.10, Glucose 89 , Magnesium 2.2, Total Bilirubin 0.3, AST 20, ALT 29, Alkaline Phosphatase 82, Amylase 73, Lipase 320 Medications List Reviewed: Yes Assessment & Plan Discharge Plan: Home Plan to discharge in: 24 Hours Physician Review Additional Text: Impression: Confusion secondary to TIA, resolved Hypertension Migraine headaches Acute left maxillary sinusitis with chronic sinusitis Plan: Confusion secondary to TIA, resolved: This appears resolved. MRI shows no acute stroke. MRA unremarkable. Carotid unremarkable. Echocardiogram pending. Will physical therapy ambulate and assess. Will discuss with Neurology. Patient previously on aspirin 81 mg daily. Plavix may need to be added at discharge along with statin medication. Anticipate discharge later today if okay with neurology. Hypertension: Medication adjusted due to low blood pressure. Blood pressures have been running low at home. Will decrease lisinopril to 5 mg daily. Migraine headaches: Patient suffers from chronic headaches. Will continue his Topamax. Recommendation to follow up with neurology as an outpatient to further address. Will discuss with Neurology. Acute left maxillary sinusitis with chronic sinusitis: MRI shows acute left maxillary sinusitis. Will start Augmentin. Patient with history of chronic sinusitis. Will also start Flonase. This can be further addressed by ENT as an outpatient Time Spent Managing Pts Care (In Minutes): 55
--- NOTE | 2018-02-08 14:14 | P.DS ---
Admission Date: 02/07/18 Discharge Date: 02/08/18 Primary Care Provider: JARET Blanc([place], [place]) Disposition: ROUTINE DISCHARGE Discharge Condition: GOOD Reason for Admission: Confusion Procedures: MRI Brain: COMPARISON: MRA Head Wo Cont dated 02/08/2018; Ct Stroke Brain Wo Cont dated 02/07/2018 TECHNIQUE: Multi-sequence, multiplanar MR imaging of the brain was performed with contrast. FINDINGS: No intracranial hemorrhage, hydrocephalus, extra-axial fluid collection or acute infarction.Minimal T2 and FLAIR hyperintensity in the periventricular deep white matter. No edema or shift of midline structures. No intracranial mass. DWI is negative for acute CVA. Multifocal paranasal sinus opacification is present with air-fluid level in the left maxillary antrum. Post-contrast images show no abnormal enhancement to suggest tumor or infection. IMPRESSION: Negative for acute CVA or other acute intracranial abnormality. No pathologic post-contrast enhancement suspected. Multifocal paranasal sinus opacification. Acute left maxillary sinusitis. MRA Brain: COMPARISON: None. TECHNIQUE: Magnetic resonance angiogram of the head was performed. 3D MIP reconstruction performed FINDINGS: The visualized anterior cerebral, middle cerebral, posterior cerebral , basilar and distal internal carotid arteries do not demonstrate a significant stenosis. An aneurysm is not seen IMPRESSION: Unremarkable MRA head MRA Neck: COMPARISON: Carotid Artery Bilateral dated 02/07/2018 FINDINGS: Contrast enhance 2D [id number] MR angiography of the neck vessels was performed. No significant carotid stenosis is identified. Forward flow is seen in codominant vertebral arteries. IMPRESSION: Unremarkable study. Carotid doppler: COMPARISON: None. TECHNIQUE: Real-time sonographic evaluation of both carotid systems was performed. Doppler interrogation was performed with waveform tracing bilaterally. FINDINGS: Normal high resistance waveforms are noted in both external carotid arteries. The common carotid arteries and internal carotid arteries show normal low resistance waveforms. Focal calcified plaquing present left carotid bulb. No significant luminal narrowing is seen. No significant right-sided plaquing. Peak systolic and end diastolic velocity values and the ICA/CCA ratios are in the non-hemodynamically significant range. Antegrade flow seen in both vertebral arteries. Velocity values and ratios were recorded and are retained in the patient's imaging records. IMPRESSION: No significant atherosclerotic changes noted. No evidence of a hemodynamically significant stenosis. Medical Problem List: Confusion likely secondary to TIA, resolved Hypertension Migraine headaches Acute left maxillary sinusitis with chronic sinusitis Obstructive sleep apnea current use of CPAP Obesity, BMI 31 Brief History of Present Illness: 72-year-old male presented emergency room with confusion. TIA was suspected. Patient was admitted for further evaluation. Hospital Course: Patient presented with confusion. TIA was suspected. This resolved. MRI showed no acute stroke. MRA of head and neck unremarkable. Carotid Doppler unremarkable. Patient worked work with physical therapy and did well. Case discussed with Neurology. Due to suspected TIA, at discharge patient will continue with aspirin 81 mg daily. Plavix 75 mg daily will be added along with Folic acid 1 mg daily. Recommendation is for the patient follow up with neurology in 1-2 weeks to follow up this hospitalization and continue his care. Patient will need to be re-evaluated and released by PCP before going to work. Lipid panel within normal range with LDL less than 70, therefore no need for statin medication. Patient has hypertension. Patient reports blood pressures been labile at home. Medications adjusted. At discharge lisinopril decreased to 5 mg daily. Recommendation is to maintain blood pressures less 150/80. Further adjustment can be done by his PCP. Patient with migraine headaches. Patient will continue with Topamax as directed. Recommendation for the patient follow up with neurology as an outpatient to further assess. MRI showed acute left axillary sinusitis. Patient with history of chronic sinusitis and previous sinus surgery. At discharge he will continue with Augmentin 500 mg 1 pill twice daily for 7 days. Patient will also continue with Flonase 1 spray per nostril twice daily. Recommendation is for the patient follow up with the ENT to further evaluate. Patient with obstructive sleep apnea. Patient will continue with CPAP at night. Patient with obesity. BMI 31. Lifestyle modification education will be provided. Vital Signs/Physical Exam: Temp Pulse Resp BP Pulse Ox 97.9 F 90 18 123/89 94 02/08/18 12:29 02/08/18 12:29 02/08/18 12:29 02/08/18 12:29 02/08/18 12:29 General: Alert, In no apparent distress, Oriented x3, Cooperative HEENT: Atraumatic, Mucous membr. moist/pink Neck: Supple Respiratory: Clear to auscultation bilaterally, Normal air movement Cardiovascular: Normal pulses, Regular rate/rhythm Gastrointestinal: Normal bowel sounds, Soft and benign, Non-distended, No tenderness, No masses, No rebound, No guarding Musculoskeletal: No erythema, No tenderness, No warmth Integumentary: No tenderness/swelling, No erythema, No warmth, No cyanosis Neurological: Normal speech, Normal strength at 5/5 x4 extr, Normal tone, Normal affect Laboratory Data at Discharge: WBC 10.8 K/uL (4.3-10.9) D 02/08/18 04:37 Hgb 13.8 g/dL (13.6-17.9) 02/08/18 04:37 Hct 40.0 % (39.6-49.0) 02/08/18 04:37 Plt Count 413 K/uL (152-406) H 02/08/18 04:37 PT 14.5 SECONDS (9.5-12.5) H 02/07/18 16:20 INR 1.23 02/07/18 16:20 APTT 29.8 SECONDS (24.3-36.9) 02/07/18 16:20 Sodium 142 mmol/L (136-145) 02/08/18 04:37 Potassium 3.9 mmol/L (3.5-5.1) 02/08/18 04:37 BUN 18 mg/dL (7-18) 02/08/18 04:37 Creatinine 1.10 mg/dL (0.55-1.3) 02/08/18 04:37 Glucose 114 mg/dL (74-106) H 02/08/18 04:37 Magnesium 2.2 mg/dL (1.8-2.4) 02/07/18 16:20 Total Bilirubin 0.4 mg/dL (0.2-1.0) 02/08/18 04:37 AST 16 U/L (15-37) 02/08/18 04:37 ALT 26 U/L (12-78) 02/08/18 04:37 Alkaline Phosphatase 73 U/L (45-117) 02/08/18 04:37 Triglycerides 72 mg/dL (<150) 02/08/18 04:37 Cholesterol 101 mg/dL (<200) 02/08/18 04:37 HDL Cholesterol 29 mg/dL (40-60) L 02/08/18 04:37 Cholesterol/HDL Ratio 3.48 02/08/18 04:37 Amylase 73 U/L (25-115) 02/07/18 16:20 Lipase 320 U/L (73-393) 02/07/18 16:20 Home Medications: Ascorbic Acid [Vitamin C*] 500 mg PO DAILY 05/25/17 Aspirin [Aspirin EC 81 MG] 81 mg PO DAILY 05/25/17 Cholecalciferol (Vitamin D3) [Vitamin D 5,000 IU Cap*] 5,000 unit PO DAILY 05/25 Fish Oil/Dha/Epa [Fish Oil 1,200 mg Fish Oil] 1 each PO DAILY 05/25/17 Topiramate [Topamax*] 20 mg PO BID 05/25/17 Vit A/Vit C/Vit E/Zinc/Copper [Icaps Areds Formula Dr Tablet] 1 each PO DAILY Amox/Clavulanate [Augmentin 500-125 mg Tab*] 500 mg PO BID #14 tab 02/08/18 Clopidogrel Bisulfate [Plavix*] 75 mg PO DAILY #30 tablet 02/08/18 Diphenox/Atropine [Lomotil*] 1 tab PO BID 02/08/18 Fluticasone [Flonase 50MCG Nasal [place]*] 1 sprays SONAL BID #1 btl 02/08/18 Folic Acid 1 mg PO DAILY #90 tablet 02/08/18 Lisinopril [Prinivil*] 5 mg PO DAILY #30 tab 02/08/18 New Medications: Amox/Clavulanate [Augmentin 500-125 mg Tab*] 500 mg PO BID #14 tab Clopidogrel Bisulfate [Plavix*] 75 mg PO DAILY #30 tablet Fluticasone [Flonase 50MCG Nasal [place]*] 1 sprays SONAL BID #1 btl Folic Acid 1 mg PO DAILY #90 tablet Lisinopril [Prinivil*] 5 mg PO DAILY #30 tab Patient Discharge Instructions: 1. Patient will need to follow up with his PCP in 1 week to follow up this hospitalization. 2. Patient presented with confusion. TIA was suspected. This resolved. MRI showed no acute stroke. MRA of head and neck unremarkable. Carotid Doppler unremarkable. Patient did well with physical therapy. Case discussed with Neurology. Due to suspected TIA, at discharge patient will continue with aspirin 81 mg daily. Plavix 75 mg daily and Folic acid 1 mg daily will be added. Recommendation is for the patient follow up with neurology in 1-2 weeks to follow up this hospitalization and continue his care. Patient will need to be re-evaluated and released by PCP before going to work. Lipid panel within normal range with LDL less than 70 therefore no need for statin medication. 3. Patient has hypertension. Patient reports blood pressures been labile at home. Medications adjusted. At discharge lisinopril decreased to 5 mg daily. Recommendation is to maintain blood pressures less 150/80. Further adjustment can be done by his PCP. 4. Patient with migraine headaches. Patient will continue with Topamax as directed. Recommendation for the patient follow up with neurology as an outpatient to further assess. 5. MRI showed acute left axillary sinusitis. Patient with history of chronic sinusitis and previous sinus surgery. At discharge he will continue with Augmentin 500 mg 1 pill twice daily for 7 days. Patient will also continue with Flonase 1 spray per nostril twice daily. Recommendation is for the patient follow up with the ENT to further evaluate. 6. Patient with obstructive sleep apnea. Patient will continue with CPAP at night. 7. Patient with obesity. BMI 31. Lifestyle modification education will be provided. Diet: AHA Activity: Ad codie Time spent managing pt's care (in minutes): 55
[2018-02-08 17:16] VITALS: BP 123/70; TEMP 99.7
[2018-02-08] MEDS ORDERED: FLUTICASONE 50MCG NASAL SPRAY NAS SCH (21:00)
[2018-02-08] MEDS ORDERED: AMOX/K CLAV 500 MG TAB PO SCH (21:00)
--- NOTE | 2018-02-09 08:13 | ECHO ---
HEIGHT: 5 ft 10 in WEIGHT: 221 lb 6.4 oz DATE OF STUDY: 02/08/[address]: Stacey Claudio MD 2-DIMENSIONAL: YES M.MODE: YES DOPPLER: YES COLOR FLOW: YES TDS: NO PORTABLE: NO DEFINITY: NO BUBBLE STUDY: NO DIAGNOSIS: STROKE CARDIAC HISTORY: CATHERIZATION: NO SURGERY: NO PROSTHETIC VALVE: NO PACEMAKER: NO MEASUREMENTS (cm) DIASTOLIC (NORMALS) SYSTOLIC (NORMALS) IVSd 1.1 (0.6-1.2) LA Diam 4.8 (1.9-4.0) LVEF 62% LVIDd 5.9 (3.5-5.7) LVIDs 3.9 (2.0-3.5) %FS 34% LVPWd 1.3 (0.6-1.2) Ao Diam 3.8 (2.0-3.7) 2 DIMENSIONAL ASSESSMENT: RIGHT ATRIUM: NORMAL LEFT ATRIUM: NORMAL RIGHT VENTRICLE: NORMAL LEFT VENTRICLE: NORMAL TRICUSPID VALVE: NORMAL MITRAL VALVE: NORMAL PULMONIC VALVE: NORMAL AORTIC VALVE: NORMAL PERICARDIAL EFFUSION: NONE AORTIC ROOT: NORMAL LEFT VENTRICULAR WALL MOTION: NORMAL DOPPLER/COLOR FLOW: NORMAL COMMENTS: NORMAL 2D ECHOCARDIOGRAM. NO VEGETATION. NO THROMBUS. TECHNICALLY DIFFICULT. TECHNOLOGIST: Waqas RUEDA
== END 2018-02-08 17:16 | disposition home or self-care (01) ==
LOC: ER 14:56 → ERHOLD 19:43 → 4TH 20:29
PROVIDERS: ADMIT Internal Medicine; ATTEND Internal Medicine
DX: R41.0 Disorientation, unspecified (principal); I10 Essential (primary) hypertension; G43.909 Migraine, unspecified, not intractable, without status migrainosus; J01.00 Acute maxillary sinusitis, unspecified; G47.33 Obstructive sleep apnea (adult) (pediatric); E66.9 Obesity, unspecified; Z68.31 Body mass index [BMI] 31.0-31.9, adult
CPT/HCPCS: 36415; 70450; 70544; 70549; 70553; 71045; 80048; 80053; 80061; 80076; 80307; 81003; 81015; 82150; 82550; 82553; 82962; 83690; 83735; 84484; 85025; 85610; 85730; 93005; 93306; 93880; 96360; 97163; 99285; A9577; G0378; J1650; J7030

== ENCOUNTER 2018-02-11 09:43 | Inpatient (IN) | payer MEDICARE ==
--- OUTSIDE RECORDS SUMMARY | 2018-02-11 09:49 | XMS REPORT | Continuity of Care Document ---
:1945 Author Organization Interface Problems Problem Status Onset Classification Date Comments Source Date Reported CONTACT Active 12/26/19 Condition 12/25/2014 DERMATITIS 15 [facility] GANGLION CYST Active 12/26/19 Condition 12/25/2014 [facility] OBESITY Active 12/26/19 Condition 12/25/2014 [facility] ORTHOSTATIC Active 12/26/19 Condition 12/25/2014 HYPOTENSION 15 Medical Group POST-OP CARE, IV Active 11/06/19 [facility] ANTIBIOTICS, PAIN 15 Medical [facility] Center POST-OP Active 11/06/19 [facility] COMPLICATIONS/BLE 15 [facility] Benign prostatic Active 10/25/19 Problem 11/21/2017 Data [...] 15 Medical OBSTRUCTION Group AFTERCARE Active 10/24/19 [facility] FOLLOWING JOINT 15 Medical REPLACEMENT, B Center Sinusitis<sup>15< Active 06/22/19 Problem 11/21/2017 Data /sup> 15 migrated Medical from [facility] on 11/14/14. SINUSITIS Inactive 06/22/19 Condition 12/25/2014 15 [facility] Group Prostate Active 04/12/20 Problem 11/21/2017 Data mass<sup>13</sup> 14 migrated Medical from [facility] 10/09/14. Prostate Active 04/12/20 Problem 11/10/2014 9Data [facility] mass<sup>9</sup> 14 migrated Medical from [facility] on 10/09/14. PROSTATITIS, Inactive 04/12/20 Condition 12/25/2014 ACUTE 14 Medical Group PROSTATE NODULE Inactive 04/12/20 Condition 12/25/2014 14 Medical Group Abdominal Active 12/28/19 Problem 11/21/2017 Data pain<sup>1</sup> 14 migrated Medical from [facility] on 10/09/14. 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 Medical Center Benign essential Active 12/13/19 Problem 11/21/2017 Data hypertension<sup> 14 migrated Medical 3</sup> from [facility] on 10/09/14. [facility] Center Body mass index Active 12/13/19 Problem 11/21/2017 Data 30+ - 14 migrated Medical obesity<sup>5</rodriguez from [employer] p> [facility] on 10/09/14. Disease of Active 12/13/19 Problem 11/21/2017 Data gallbladder<sup>6 14 migrated Medical </sup> from [facility] on 10/09/14. Long-term drug Active 12/13/19 Problem 11/21/2017 Data therapy<sup>7</rodriguez 14 migrated Medical p> from [employer] [facility] on 10/09/14. Neck Active 12/13/19 Problem 11/21/2017 Data pain<sup>8</sup> 14 migrated Medical from [facility] on 10/09/14. Positional Active 12/13/19 Problem 11/21/2017 Data vertigo<sup>11</s 14 migrated Medical up> from [facility] on 10/09/14. 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 Body mass index Active 12/13/19 Problem 11/10/2014 4Data [place] 30+ - 14 migrated Medical obesity<sup>4</rodriguez from [facility] p> [facility] on 10/09/14. Disease of Active 12/13/19 Problem 11/10/2014 5Data [facility] gallbladder<sup>5 14 migrated Medical </sup> from [facility] on 10/09/14. Long-term drug Active 12/13/19 Problem 11/10/2014 6Data [facility] therapy<sup>6</rodriguez 14 migrated Medical p> from [facility] on 10/09/14. Neck Active 12/13/19 Problem 11/10/2014 7Data [facility] pain<sup>7</sup> 14 migrated Medical from [facility] on 10/09/14. Positional Active 12/13/19 Problem 11/10/2014 8Data [facility] vertigo<sup>8</rodriguez 14 migrated Medical p> from [facility] on 10/09/14. Reactive airways Active 12/13/19 Problem 11/10/2014 10Data [facility] dysfunction 14 migrated Medical syndrome<sup>10</ from [...] ADULT 14 Medical Group NAUSEA Active 12/12/[address] Arthritis Active Problem 11/21/2017 Medical Group,[facility] Hypertension Active Problem 11/21/2017 Medical Group,[facility] OTHER GENERAL Active [facility] SYMPTOMS [facility] OSTEOARTHROS Active [facility] NOS-L/LEG [facility] Center Medications Medication Details Route Status Patient Ordering Order Source Instructions Provider Date lisinopril 20 mg 40 mg=2 tab, PO, Active oral tablet Daily, # 180 tab, 2018 Medical 1 Refill(s), Group Pharmacy: [facility] lisinopril 20 mg See Instructions, No Longer oral tablet # 180 tab, TAKE 2 Active 2017 Medical TABLETS BY MOUTH Group EVERY DAY, Pharmacy: [facility] 24 HR mirabegron 50 mg=1 tab, PO, Active 50 MG Extended Daily, # 90 tab, 2018 Medical Release Tablet 3 Refill(s), Group [Myrbetriq] Pharmacy: [facility] 482 24 HR mirabegron 50 mg=1 tab, PO, Active 08/03[facility] 50 MG Extended Daily, # 30 tab, 2018 Medical Release Tablet 6 Refill(s), Group [Myrbetriq] Pharmacy: [facility] 482 TRIAMCINOLONE apply to affected Active ACETONIDE 0.1 % area twice daily 2015 Medical CREA as needed Group Acetaminophen 300 1 - 2 tab, PO, Active 11/07[facility] [place] MG / Codeine Q6H, PRN Pain, X 2015 Medical Phosphate 60 MG 7 day, # 40 tab, Center Oral Tablet 1 Refill(s) [Tylenol with Codeine #4] minocycline 100 100 mg=1 cap, PO, Active 11/07[facility] [place] mg oral capsule Q12H, X 14 day, # 2015 Medical 28 cap, 0 Center Refill(s) Aspirin 81 MG 81 mg=1 tab, PO, Active 11/07[facility] [place] Enteric Coated BID, HOLD ASPIRIN 2014 Medical Tablet UNTIL CLEARED BY Center ORTHOPEDICS. STAY ACTIVE TO PREVENT BLOOD CLOTS., # 60 tab, 0 Refill(s), otherSpecial Instructions: HOLD ASPIRIN UNTIL CLEARED BY ORTHOPEDICS. STAY ACTIVE TO PREVENT BLOOD CLOTS. topiramate 25 mg 25 mg=1 tab, PO, Active [facility] oral tablet Bedtime, 0 2014 Medical Refill(s) Center lisinopril 20 mg 20 mg=1 tab, PO, Active [facility] oral tablet BID, HOLD UNTIL 2015 Medical SYSTOLIC BP (TOP Center NUMBER) IS GREATER THAN 140 THEN RESTART., 0 Refill(s)Special Instructions: HOLD UNTIL SYSTOLIC BP (TOP NUMBER) IS GREATER THAN 140 THEN RESTART. docusate sodium 100 mg=1 cap, PO, Active [place] 100 mg oral BID, 0 Refill(s) 2014 Medical capsule Center acetaminophen 325 650 mg=2 tab, PO, Active [facility] mg oral tablet Q6H, PRN Pain 2015 Medical Score 1-3, not to Center exceed 4000 mg/day INCLUDING 325mg per tab of norco, 0 Refill(s)Special Instructions: not to exceed 4000 mg/day INCLUDING 325mg per tab of norco Acetaminophen 325 1 tab, PO, Q4H, Active [facility] MG / Hydrocodone PRN Pain Score 2015 Medical Bitartrate 10 MG 1-3, 0 Refill(s) Center Oral Tablet sennosides, FCI 17.2 mg, 2 tab, No Longer [facility] Route: PO, Drug Active 2014 Medical Form: TAB, Dosing Center Weight 110.909, kg, Daily, Start date: 11/06/14 9:00:00, Duration: 30 day, Stop date: 12/05/14 9:00:00Notes: (Same as: Senokot) topiramate 50 mg, 2 tab, No Longer [facility] Route: PO, Drug Active 2014 Medical form: TAB, Daily, Center Dosing Weight 110.909, kg, Start date: 11/06/14 9:00:00, Duration: 30 day, Stop date: 12/05/14 9:00:00Notes: (Same As: Topamax) Fish Oil 1,000 mg, 1 cap, No Longer [facility] Route: PO, Drug Active 2014 Medical form: CAP, Daily, Center Dosing Weight 110.909, kg, Start date: 11/06/14 9:00:00, Duration: 30 day, Stop date: 12/05/14 9:00:00Notes: (Same as: MaxEPA, D Lo 3 fish oil ) Non-Formulary Drug multivitamin 1 tab, Route: PO, No Longer [place] Drug Form: TAB, Active 2014 Medical Dosing Weight Center 110.909, kg, Daily, Start date: 11/06/14 9:00:00, Duration: 30 day, Stop date: 12/05/14 9:00:00Notes: (Same as:Thera) Take with food. Lisinopril 20 mg, 1 tab, No Longer [place] Route: PO, Drug Active 2014 Medical form: TAB, BID, Center Dosing Weight 110.909, kg, Start date: 11/06/14 9:00:00, Duration: 30 day, Stop date: 12/05/14 21:00:00Notes: (Same as: Prinivil, Zestril) Vitamin D3 1000 1,000 IntlUnit, 1 No Longer [place] intl units oral tab, Route: PO, Active 2014 Medical tablet Drug form: TAB, Center Daily, Dosing Weight 110.909, kg, Start date: 11/06/14 9:00:00, Duration: 30 day, Stop date: 12/05/14 9:00:00Notes: Same as : Vitamin D3 carvedilol 12.5 mg, 2 tab, No Longer [place] Route: PO, Drug Active 2014 Medical form: TAB, QAM, Center Dosing Weight 110.909, kg, Start date: 11/06/14 9:00:00, Duration: 30 day, Stop date: 12/05/14 9:00:00Notes: Give with food. (Same As: Coreg) Vitamin C 500 mg, 1 tab, No Longer [place] Route: PO, Drug Active 2014 Medical form: TAB, Daily, Center Dosing Weight 110.909, kg, Start date: 11/06/14 9:00:00, Duration: 30 day, Stop date: 12/05/14 9:00:00Notes: (Same as: Vitamin C) tamsulosin 0.4 mg, 1 cap, No Longer [place] Route: PO, Drug Active 2014 Medical form: CAP, After Center Breakfast, Dosing Weight 110.909, kg, Start date: 11/06/14 8:30:00, Duration: 30 day, Stop date: 12/05/14 8:30:00Notes: (Same As: Flomax) "Do Not Crush" Vancomycin 6.67 1,500 mg, 250 mL, No Longer [place] MG/ML Injectable Route: IVPB, Drug Active 2014 [...] Tranexamic Acid 2,000 mg, 20 mL, Inactive [place] Route: IVPB, Drug 2014 Medical form: INJ, ONCE, Center Dosing Weight 110.909, kg, Start date: 11/06/14 1:02:00, Stop date: 11/06/14 1:02:00Notes: (Same As: Cyklokapron) Topamax 25 mg, 1 tab, No Longer [place] Route: PO, Drug Active 2014 Medical form: TAB, Center Bedtime, Start date: 11/05/14 21:00:00, Duration: 30 day, Stop date: 12/04/14 21:00:00Notes: (Same As: Topamax) Docusate 100 mg, 1 cap, No Longer [facility] Route: PO, Drug Active 2014 Medical form: CAP, BID, Center Dosing Weight 110.909, kg, Start date: 11/05/14 21:00:00, Duration: 30 day, Stop date: 12/05/14 9:00:00Notes: (Same as: Colace) celecoxib 200 mg, 1 cap, No Longer [facility] Route: PO, Drug Active 2014 Medical form: CAP, Center [id number], Dosing Weight 110.909, kg, Start date: 11/05/14 20:00:00, Stop date: 12/05/14 8:00:00Notes: NSAID. Please check indication. Not for seizure. (Same As: CeleBREX) Morphine 2 mg, 0.2 mL, No Longer [facility] Route: IVP, Drug Active 2014 Medical form: INJ, Q5Min, Center Dosing Weight 110.909, kg, PRN Pain Score 4-6, Start date: 11/05/14 19:18:00, Duration: 5 doses or times, Stop date: Limited # of timesNotes: (Same as:MORPhine Sulfate) Hydromorphone 0.5 mg, 0.25 mL, No Longer [facility] Route: IVP, Drug Active 2014 Medical form: INJ, Q5Min, Center Dosing Weight 110.909, kg, PRN Pain Score 7-10, Start date: 11/05/14 19:18:00, Duration: 4 doses or times, Stop date: Limited # of timesNotes: Same as Dilaudid Meperidine 12.5 mg, 0.25 mL, No Longer [facility] Route: IVP, Drug Active 2014 Medical form: INJ, Center Q30Min, Dosing Weight 110.909, kg, PRN Other -See Comment, For shivering, Start date: 11/05/14 19:18:00, Duration: 2 doses or times, Stop date: Limited # of timesNotes: (Same as: Demerol) "Use Precaution in Elderly, Seizure disorders, and Renal impairment" Ondansetron 4 mg, 2 mL, No Longer [facility] Route: IVP, Drug Active 2014 Medical form: INJ, ONCE, Center Dosing Weight 110.909, kg, PRN Nausea & Vomiting, Start date: 11/05/14 19:18:00Notes: (Same as: Zofran) MEDICATION WASTE Product Size: 4 mg Product Wasted: ___ mg POLYETHYLENE 17 gm, 1 pkt, No Longer [place] GLYCOL [id number] Route: PO, Drug Active 2014 Medical form: PWDR, Center Daily, Dosing Weight 110.909, kg, PRN Constipation, Start date: 11/05/14 19:02:00, Stop date: 12/05/14 19:01:00Notes: (Same as: Miralax) Bisacodyl 10 mg, 1 supp, No Longer [place] Route: HI, Drug Active 2014 Medical form: SUPP, Center Daily, Dosing Weight 110.909, kg, PRN Constipation, Start date: 11/05/14 19:02:00, Stop date: 12/05/14 19:01:00Notes: (Same As: Dulcolax, Bisco-Lax) Morphine 5 mg, 0.5 mL, No Longer [place] Route: IVP, Drug Active 2014 Medical form: INJ, Q4H, Center Dosing Weight 110.909, kg, PRN Pain Score 7-10, Start date: 11/05/14 19:02:00, Stop date: 12/05/14 19:01:00Notes: (Same as:MORPhine Sulfate) Al hydroxide/Mg 30 mL, Route: PO, No Longer [place] hydroxide/simethi Drug Form: SUSP, Active 2014 Medical cone 200 mg-200 Dosing Weight Center mg-20 mg/5 mL 110.909, kg, Q4H, oral suspension PRN Indigestion, Start date: 11/05/14 19:02:00, Stop date: 12/05/14 19:01:00Notes: (aluminum hydroxide-magnesi um hyd- simethicone [phone]/5ml 30 ml ud DELISA) Ondansetron 4 mg, 2 mL, No Longer [place] Route: IVP, Drug Active 2014 Medical form: INJ, Q6H, Center Dosing Weight 110.909, kg, PRN Nausea & Vomiting, Start date: 11/05/14 19:02:00, Stop date: 12/05/14 19:01:00Notes: (Same as: Zofran) MEDICATION WASTE Product Size: 4 mg Product Wasted: ___ mg Diphenhydramine 25 mg, 1 cap, No Longer [place] Route: PO, Drug Active 2014 Medical form: CAP, Center Bedtime, Dosing Weight 110.909, kg, PRN Insomnia, Start date: 11/05/14 19:02:00, Stop date: 12/05/14 19:01:00Notes: (Same as: Benadryl) Phenergan 25 mg, 1 tab, No Longer [place] Route: PO, Drug Active 2014 Medical form: TAB, Q6H, Center Dosing Weight 110.909, kg, PRN Nausea & Vomiting, Start date: 11/05/14 19:02:00, Stop date: 12/05/14 19:01:00Notes: (Same as: Phenergan) Tylenol 650 mg, 2 tab, No Longer [place] Route: PO, Drug Active 2014 Medical form: TAB, Q6H, Center Dosing Weight 110.909, kg, PRN Pain Score 1-3, Start date: 11/05/14 19:02:00, Stop date: 12/05/14 19:01:00Notes: Do not exceed 4 gm/day. (Same as: Tylenol) zolpidem 5 mg, Route: PO, Inactive [place] Drug form: TAB, 2015 Medical Bedtime, Dosing Center Weight 110.909, kg, PRN Insomnia, Start date: 11/05/14 19:02:00, Duration: 30 day, Stop date: 12/05/14 19:01:00 Acetaminophen 325 2 tab, Route: PO, No Longer [place] MG / Hydrocodone Drug Form: TAB, Active 2014 Medical Bitartrate 10 MG Dosing Weight Center Oral Tablet 110.909, kg, Q4H, PRN Pain Score 4-6, Start date: 11/05/14 19:02:00, Stop date: 12/05/14 19:01:00Notes: Do not exceed 4gm/day of acetaminophen. (Same as: Dovray 325/10) Temazepam 15 mg, 1 cap, No Longer [facility] Route: PO, Drug Active 2014 Medical form: CAP, Center Bedtime, Dosing Weight 110.909, kg, PRN Sleep, Start date: 11/05/14 19:02:00, Stop date: 12/05/14 19:01:00Notes: (Same As: Restoril) Famotidine 20 mg, 1 tab, No Longer [facility] Route: PO, Drug Active 2014 Medical form: TAB, BID, Center Dosing Weight 110.909, kg, PRN Indigestion, Start date: 11/05/14 19:02:00, Stop date: 12/05/14 19:01:00Notes: (Same as: Pepcid) Oxycodone 5 mg, 1 tab, No Longer [place] Hydrochloride 5 Route: PO, Drug Active 2014 Medical MG Oral Tablet form: TAB, Q4H, Center Dosing Weight 110.909, kg, PRN Pain Score 4-6, Start date: 11/05/14 19:02:00, Stop date: 12/05/14 19:01:00Notes: (Same as: Roxicodone) 1/2 NS 1,000 mL 1,000 mL, Rate: No Longer [place] 85 ml/hr, Infuse Active 2014 Medical over: 11.8 hr, Center Route: IV, Dosing Weight 110.909 kg, Total Volume: 1,000, Start date: 11/05/14 19:02:00, Stop date: 12/05/14 19:01:00 Vancomycin 1 gm, Route: Inactive [place] IVPB, Drug form: 2014 Medical INJ, ONCE, Dosing Center Weight 110.909, kg, Priority: STAT, Start date: 11/05/14 18:02:00, Stop date: 11/05/14 18:02:00 Albuterol 0.83 2.49 mg, 3 mL, No Longer [place] MG/ML Inhalant Route: Active 2014 Medical Solution INHALATION, Drug Center form: SOLN, RQ6H, Dosing Weight 110.909, kg, PRN Wheezing, Start date: 11/05/14 17:31:00, Stop date: 12/05/14 17:30:00Notes: SEE RT DOCUMENTATION (Same as: Proventil) Ondansetron 4 mg, 2 mL, No Longer [facility] Route: IVP, Drug Active 2014 Medical form: INJ, Q8H, Center Dosing Weight 110.909, kg, PRN Nausea & Vomiting, Start date: 11/05/14 16:58:00, Stop date: 12/05/14 16:57:00Notes: (Same as: Zofran) MEDICATION WASTE Product Size: 4 mg Product Wasted: ___ mg Docusate 100 mg, 1 cap, No Longer [place] Route: PO, Drug Active 2014 Medical form: CAP, BID, Center Dosing Weight 110.909, kg, PRN Constipation, Start date: 11/05/14 16:58:00, Stop date: 12/05/14 16:57:00Notes: (Same as: Colace) (Do Not Crush) Acetaminophen 325 1 tab, Route: PO, No Longer [place] MG / Hydrocodone Drug Form: TAB, Active 2014 Medical Bitartrate 10 MG Dosing Weight Center Oral Tablet 110.909, kg, Q4H, PRN Pain Score 4-6, Start date: 11/05/14 16:58:00, Stop date: 12/05/14 16:57:00Notes: Do not exceed 4gm/day of acetaminophen. (Same as: Dovray 325/10) Acetaminophen 650 mg, 2 tab, No Longer [place] Route: PO, Drug Active 2014 Medical form: TAB, Q4H, Center Dosing Weight 110.909, kg, PRN Other -See Comment, Start date: 11/05/14 16:58:00, Stop date: 12/05/14 16:57:00, feverNotes: Do not exceed 4 gm/day. (Same as: Tylenol) Morphine 2 mg, 0.2 mL, No Longer [place] Route: IVP, Drug Active 2014 Medical form: INJ, Q3H, Center Dosing Weight 110.909, kg, PRN Pain Score 7-10, Start date: 11/05/14 16:58:00, Stop date: 12/05/14 16:57:00Notes: (Same as:MORPhine Sulfate) Acetaminophen 325 1 tab, Route: PO, No Longer [place] MG / Hydrocodone Drug Form: TAB, Active 2014 Medical Bitartrate 5 MG Dosing Weight Center Oral Tablet 110.909, kg, Q4H, PRN Pain Score 1-3, Start date: 11/05/14 16:58:00, Stop date: 12/05/14 16:57:00Notes: (Same as: Dovray 325/5) Do not exceed 4gm/day of acetaminophen. Cefazolin 2 gm, Route: Inactive [place] IVPB, ONCALL, 2014 Medical Dosing Weight Center 110.909, kg, Start date: 11/05/14 16:00:00, Duration: 1 doses or times, Stop date: 11/06/14 6:00:00Notes: (Same As: Mone Jacques) Cefazolin FOR IV SET ONLY MEDICATION WASTE Product Size: 1000 mg Product Wasted: ___ mg Acetaminophen 325 2 tab, Route: PO, Inactive [facility] MG / Hydrocodone Drug Form: TAB, 2014 Medical Bitartrate 10 MG Dosing Weight Center Oral Tablet 111.364, kg, [Dovray 10/325] ONCE, STAT, Start date: 11/05/14 13:31:00, Stop date: 11/05/14 13:31:00 Acetaminophen 325 1-2 tab, PO, Active [facility] MG / Hydrocodone Q4-6H, PRN Pain, 2015 Medical Bitartrate 10 MG X 5 day, # 40 Center Oral Tablet tab, 0 Refill(s) [Dovray 10/325] senna 8.6 mg oral 17.2 mg=2 tab, Active [facility] tablet PO, Bedtime, PRN 2015 Medical constipation, X Center 14 day, # 28 tab, 0 Refill(s) docusate sodium 100 mg=1 cap, PO, Active [place] 100 mg oral BID, # 28 cap, 0 2015 Medical capsule Refill(s) Center bisacodyl 10 mg 10 mg=1 supp, HI, Active [facility] rectal Daily, PRN 2015 Medical suppository Constipation, X 3 Center day, # 3 supp, 0 Refill(s) Aspirin 81 MG 81 mg=1 tab, PO, Active [place] Enteric Coated BID, # 60 tab, 0 2015 Medical Tablet Refill(s) Center celecoxib 200 mg 200 mg=1 cap, PO, Active [facility] oral capsule [id number], # 60 2015 Medical cap, 2 Refill(s) Center Sodium Chloride 1,000 mL, Rate: No Longer [place] 0.154 MEQ/ML 75 ml/hr, Infuse Active 2015 Medical Injectable over: 13.3 hr, Center Solution Route: IV, Dosing Weight 111.364 kg, Total Volume: 1,000, Start date: 10/30/14 10:09:00, Duration: 30 day, Stop date: 11/29/14 10:08:00 carvedilol 12.5 mg, 2 tab, No Longer [facility] Route: PO, Drug Active 2014 Medical form: TAB, QAM, Center Dosing Weight 111.364, kg, Start date: 10/30/14 9:00:00, Duration: 30 day, Stop date: 11/28/14 9:00:00Notes: Give with food. (Same As: Coreg) sennosides, FCI 8.6 mg, 1 tab, No Longer [facility] Route: PO, Drug Active 2014 Medical Form: TAB, Dosing Center Weight 111.364, kg, Daily, Start date: 10/30/14 9:00:00, Duration: 30 day, Stop date: 11/28/14 9:00:00Notes: (Same as: Senokot) 120 ACTUAT 110 microgram, No Longer [facility] Triamcinolone Route: NASAL, Active 2014 Medical Acetonide 0.055 Drug Form: SPRY, Center MG/ACTUAT Nasal Dosing Weight Inhaler 111.364, kg, [Nasacort] Daily, Start date: 10/30/14 9:00:00, Duration: 30 day, Stop date: 11/28/14 9:00:00Notes: Non-formulary drug. (triamcinolone 55 microgram/inh 10 gm nasal SPR) (Same As: Nasacort) topiramate 50 mg, 2 tab, No Longer [facility] Route: PO, Drug Active 2014 Medical form: TAB, Daily, Center Dosing Weight 111.364, kg, Start date: 10/30/14 9:00:00, Duration: 30 day, Stop date: 11/28/14 9:00:00Notes: (Same As: Topamax) "Do Not Crush" tamsulosin 0.4 mg, 1 cap, No Longer [facility] Route: PO, Drug Active 2014 Medical form: CAP, Daily, Center Dosing Weight 111.364, kg, Start date: 10/30/14 9:00:00, Duration: 30 day, Stop date: 11/28/14 9:00:00Notes: (Same As: Flomax) "Do Not Crush" Fish Oil 1,000 mg, 1 cap, No Longer [facility] Route: PO, Drug Active 2014 Medical form: CAP, Daily, Center Dosing Weight 111.364, kg, Start date: 10/30/14 9:00:00, Duration: 30 day, Stop date: 11/28/14 9:00:00Notes: (Same as: MaxEPA, D Lo 3 fish oil ) Non-Formulary Drug multivitamin 1 tab, Route: PO, No Longer [facility] Drug Form: TAB, Active 2014 Medical Dosing Weight Center 111.364, kg, Daily, Start date: 10/30/14 9:00:00, Duration: 30 day, Stop date: 11/28/14 9:00:00Notes: (Same as:Thera) Take with food. Vitamin D3 1000 1,000 IntlUnit, 1 No Longer [facility] intl units oral tab, Route: PO, Active 2014 Medical tablet Drug form: TAB, Center Daily, Dosing Weight 111.364, kg, Start date: 10/30/14 9:00:00, Duration: 30 day, Stop date: 11/28/14 9:00:00Notes: Same as : Vitamin D3 Tranexamic Acid 1,200 mg, 12 mL, Inactive [place] Route: IVPB, Drug 2014 Medical form: INJ, ONCE, Center Dosing Weight 111.364, kg, Priority: Routine, Start date: 10/29/14 21:21:00, Stop date: 10/29/14 21:21:00Notes: (Same As: Cyklokapron) ceFAZolin (SCIP) 2 gm, 100 mL, No Longer [facility] Route: IVPB, Drug Active 2014 Medical form: INJ, Q6H, Center Dosing Weight 111.364, kg, Start date: 10/29/14 20:00:00, Duration: 3 doses or times, Stop date: 10/30/14 8:00:00Notes: Same as Ancef Aspirin 325 mg, 1 tab, No Longer [facility] Route: PO, Drug Active 2014 Medical form: ECTAB, Center Q12H, Dosing Weight 111.364, kg, For patients with risk of bleeding, Start date: 10/29/14 19:23:00, Duration: 30 day, Stop date: 11/28/14 9:00:00Notes: (Do Not Crush) Do not crush or chew. Docusate 100 mg, 1 cap, No Longer [place] Route: PO, Drug Active 2014 Medical form: CAP, BID, Center Dosing Weight 111.364, kg, Start date: 10/29/14 17:00:00, Duration: 30 day, Stop date: 11/28/14 9:00:00Notes: (Same as: Colace) (Do Not Crush) Lisinopril 20 mg, 1 tab, No Longer [place] Route: PO, Drug Active 2014 Medical form: TAB, BID, Center Dosing Weight 111.364, kg, Start date: 10/29/14 17:00:00, Duration: 30 day, Stop date: 11/28/14 9:00:00Notes: (Same as: Prinivil, Zestril) Diphenhydramine 12.5 mg, 0.25 mL, No Longer [place] Route: IVP, Drug Active 2014 Medical form: INJ, Center Q10Min, Dosing Weight 111.364, kg, PRN Itching, up to a maximum of 25 mg, Start date: 10/29/14 16:08:00, Duration: 30 day, Stop date: 11/28/14 16:07:00Notes: (Same as: Benadryl) Albuterol 0.83 2.49 mg, 3 mL, No Longer [place] MG/ML Inhalant Route: NEB, Drug Active 2014 Medical Solution form: SOLN, PRN, Center Dosing Weight 111.364, kg, PRN Respiratory Protocol, Start date: 10/29/14 16:05:00, Duration: 30 day, Stop date: 11/28/14 16:04:00Notes: SEE RT DOCUMENTATION (Same as: Proventil) celecoxib 200 mg, 1 cap, No Longer [place] Route: PO, Drug Active 2014 Medical form: CAP, Center [id number], Dosing Weight 111.364, kg, Start date: 10/29/14 16:00:00, Duration: 30 day, Stop date: 11/28/14 4:00:00Notes: NSAID. Please check indication. Not for seizure. (Same As: CeleBREX) Promethazine 6.25 mg, 0.25 mL, Inactive [facility] Route: IVPB, Drug 2014 Medical form: INJ, ONCE, Center Dosing Weight 111.364, kg, PRN Nausea & Vomiting, Start date: 10/29/14 15:59:00Notes: Do not give IV push. (Same as: Phenergan) Ondansetron 4 mg, 2 mL, Inactive [facility] Route: IVP, Drug 2014 Medical form: INJ, ONCE, Center Dosing Weight 111.364, kg, PRN Nausea & Vomiting, Start date: 10/29/14 15:59:00Notes: (Same as: Zofran) MEDICATION WASTE Product Size: 4 mg Product Wasted: ___ mg Meperidine 12.5 mg, 0.25 mL, Inactive [facility] Route: IVP, Drug 2014 Medical form: INJ, Center Q30Min, Dosing Weight 111.364, kg, PRN Other -See Comment, For shivering, Start date: 10/29/14 15:59:00, Duration: 2 doses or times, Stop date: Limited # of timesNotes: (Same as: Demerol) "Use Precaution in Elderly, Seizure disorders, and Renal impairment" Flumazenil 0.2 mg, 2 mL, Inactive [facility] Route: IVP, Drug 2014 Medical form: INJ, PRN, Center Dosing Weight 111.364, kg, PRN Benzodiazepine Reversal, Initial dose, Start date: 10/29/14 15:59:00, Duration: 30 day, Stop date: 11/28/14 15:58:00Notes: (Same as: Romazicon) Naloxone 0.04 mg, 0.1 mL, Inactive [facility] Route: IVP, Drug 2014 Medical form: INJ, Q2MIN, Center Dosing Weight 111.364, kg, PRN Narcotic Reversal, Start date: 10/29/14 15:59:00, Duration: 8 doses or times, Stop date: Limited # of timesNotes: Same as Narcan Morphine 2 mg, 0.2 mL, Inactive [facility] Route: IVP, Drug 2014 Medical form: INJ, Q5Min, Center Dosing Weight 111.364, kg, PRN Pain Score 4-6, Start date: 10/29/14 15:59:00, Duration: 5 doses or times, Stop date: Limited # of timesNotes: (Same as:MORPhine Sulfate) Hydromorphone 0.5 mg, 0.25 mL, Inactive [facility] Route: IVP, Drug 2014 Medical form: INJ, Q5Min, Center Dosing Weight 111.364, kg, PRN Pain Score 7-10, Start date: 10/29/14 15:59:00, Duration: 4 doses or times, Stop date: Limited # of timesNotes: Same as Dilaudid Labetalol 10 mg, 2 mL, Inactive [facility] Route: IVP, Drug 2014 Medical form: INJ, Q5Min, Center Dosing Weight 111.364, kg, PRN Elevated BP, Start date: 10/29/14 15:59:00, Duration: 5 doses or times, Stop date: Limited # of times Hydralazine 10 mg, 0.5 mL, Inactive [facility] Route: IVP, Drug 2014 Medical form: INJ, Center Q20Min, Dosing Weight 111.364, kg, PRN Elevated BP, Start date: 10/29/14 15:59:00, Duration: 2 doses or times, Stop date: Limited # of timesNotes: (Same as: Apresoline) Push over 5 minutes Calcium Chloride 1,000 mL, Rate: Inactive [facility] 0.0014 MEQ/ML / 125 ml/hr, Infuse 2014 Medical Potassium over: 8 hr, Center Chloride 0.004 Route: IV, Dosing MEQ/ML / Sodium Weight 111.364 Chloride 0.103 kg, Total Volume: MEQ/ML / Sodium 1,000, Start Lactate 0.028 date: 10/29/14 MEQ/ML Injectable 15:59:00, Solution Duration: 30 day, Stop date: 11/28/14 15:58:00 Acetaminophen 1,000 mg, 100 mL, Inactive [facility] Route: IVPB, Drug 2014 Medical form: INJ, ONCE, Center Dosing Weight 111.364, kg, PRN Pain Score 1-3, Start date: 10/29/14 15:59:00, Duration: 1 doses or times, Stop date: Limited # of timesNotes: Infuse over 15 minutes Do not exceed 4gm/day of acetaminophen MEDICATION WASTE Product Size: 1000 mg Product Wasted: ___ mg Tranexamic Acid 1,200 mg, Route: Inactive [place] IVPB, ONCE, 2014 Medical Dosing Weight Center 111.364, kg, Start date: 10/29/14 15:27:00, Stop date: 10/29/14 15:27:00 Oxycodone 5 mg, 1 tab, No Longer [place] Hydrochloride 5 Route: PO, Drug Active 2014 Medical MG Oral Tablet form: TAB, Q4H, Center Dosing Weight 111.364, kg, PRN Pain Score 4-6, Start date: 10/29/14 15:21:00, Duration: 30 day, Stop date: 11/28/14 15:20:00Notes: (Same as: Roxicodone) Ondansetron 4 mg, 2 mL, No Longer [facility] Route: IVP, Drug Active 2014 Medical form: INJ, Q6H, Center Dosing Weight 111.364, kg, PRN Nausea & Vomiting, Start date: 10/29/14 15:21:00, Duration: 30 day, Stop date: 11/28/14 15:20:00Notes: (Same as: Zofran) MEDICATION WASTE Product Size: 4 mg Product Wasted: ___ mg Diphenhydramine 25 mg, 1 cap, No Longer [facility] Route: PO, Drug Active 2014 Medical [...] 11/28/14 15:20:00Notes: (aluminum hydroxide-magnesi um hyd- simethicone [id number]/5ml 30 ml ud DELISA) Morphine 5 mg, 0.5 mL, No Longer [place] Route: IVP, Drug Active 2014 Medical form: INJ, Q4H, Center Dosing Weight 111.364, kg, PRN Pain Score 7-10, Start date: 10/29/14 15:21:00, Duration: 30 day, Stop date: 11/28/14 15:20:00Notes: (Same as:MORPhine Sulfate) Bisacodyl 10 mg, 1 supp, No Longer [place] Route: HI, Drug Active 2014 Medical form: SUPP, Center Daily, Dosing Weight 111.364, kg, PRN Constipation, Start date: 10/29/14 15:21:00, Duration: 30 day, Stop date: 11/28/14 15:20:00Notes: (Same As: Dulcolax, Bisco-Lax) POLYETHYLENE 17 gm, 1 pkt, No Longer [place] GLYCOL 3350 Route: PO, Drug Active 2014 Medical form: PWDR, Center Daily, Dosing Weight 111.364, kg, PRN Constipation, Start date: 10/29/14 15:21:00, Duration: 30 day, Stop date: 11/28/14 15:20:00Notes: Dissolve in 8 oz of water or juice. (Same as: Miralax) Phenergan 25 mg, 1 tab, No Longer [place] Route: PO, Drug Active 2014 Medical form: [...] Tylenol) zolpidem 5 mg, Route: PO, Inactive [place] Drug form: TAB, 2014 Medical Bedtime, Dosing Center Weight 111.364, kg, PRN Insomnia, Start date: 10/29/14 15:21:00, Duration: 30 day, Stop date: 11/28/14 15:20:00 Famotidine 20 mg, 1 tab, No Longer [place] Route: PO, Drug Active 2014 Medical form: TAB, BID, Center Dosing Weight 111.364, kg, PRN Indigestion, Start date: 10/29/14 15:21:00, Duration: 30 day, Stop date: 11/28/14 15:20:00Notes: (Same as: Pepcid) Temazepam 15 mg, 1 cap, No Longer [place] Route: PO, Drug Active 2014 Medical form: CAP, Center Bedtime, Dosing Weight 111.364, kg, PRN Sleep, Start date: 10/29/14 15:21:00, Duration: 30 day, Stop date: 11/28/14 15:20:00Notes: (Same As: Restoril) Acetaminophen 325 1 tab, Route: PO, No Longer [place] MG / Hydrocodone Drug Form: TAB, Active 2014 Medical Bitartrate 10 MG Dosing Weight Center Oral Tablet 111.364, kg, Q4H, PRN Pain Score 1-3, Start date: 10/29/14 15:21:00, Duration: 30 day, Stop date: 11/28/14 15:20:00Notes: Do not exceed 4gm/day of acetaminophen. (Same as: Dovray 325/10) 1/2 NS 1,000 mL 1,000 mL, Rate: No Longer [place] 85 ml/hr, Infuse Active 2014 Medical over: 11.8 hr, Center Route: IV, Dosing Weight 111.364 kg, Total Volume: 1,000, Start date: 10/29/14 15:21:00, Duration: 30 day, Stop date: 11/28/14 15:20:00 Diphenhydramine 12.5 mg, 5 mL, No Longer [place] Route: PO, Drug Active 2014 Medical form: LIQ, Q6H, Center Dosing Weight 111.364, kg, PRN Itching, Start date: 10/29/14 14:46:00, Duration: 30 day, Stop date: 11/28/14 14:45:00, ..Special Instructions: ..Notes: (Same as: Sahil) Ondansetron 4 mg, 2 mL, No Longer [place] Route: IVP, Drug Active 2014 Medical form: INJ, Q8H, Center Dosing Weight 111.364, kg, PRN Nausea & Vomiting, Start date: 10/29/14 14:45:00, Duration: 30 day, Stop date: 11/28/14 14:44:00Notes: (Same as: Elijah) MEDICATION WASTE Product Size: 4 mg Product Wasted: ___ mg Acetaminophen 325 1 tab, Route: PO, No Longer [place] MG / Hydrocodone Drug Form: TAB, Active 2014 Medical Bitartrate 5 MG Dosing Weight Center Oral Tablet 111.364, kg, Q4H, PRN Pain Score 1-3, Start date: 10/29/14 14:45:00, Duration: 30 day, Stop date: 11/28/14 14:44:00Notes: (Same as: Dovray 325/5) Do not exceed 4gm/day of acetaminophen. Acetaminophen 650 mg, 2 tab, No Longer [place] Route: PO, Drug Active 2014 Medical form: TAB, Q4H, Center Dosing Weight 111.364, kg, PRN Pain 1-3/Temp > 100.4 F, Start date: 10/29/14 14:45:00, Duration: 30 day, Stop date: 11/28/14 14:44:00, feverNotes: Do not exceed 4 gm/day. (Same as: Tylenol) Acetaminophen 325 1 tab, Route: PO, No Longer [place] MG / Hydrocodone Drug Form: TAB, Active 2014 Medical Bitartrate 10 MG Dosing Weight Center Oral Tablet 111.364, kg, Q4H, PRN Pain Score 4-6, Start date: 10/29/14 14:45:00, Duration: 30 day, Stop date: 11/28/14 14:44:00Notes: Do not exceed 4gm/day of acetaminophen. (Same as: Dovray 325/10) Morphine 2 mg, 0.2 mL, No Longer [place] Route: IVP, Drug Active 2014 Medical form: INJ, Q3H, Center Dosing Weight 111.364, kg, PRN Pain Score 7-10, Start date: 10/29/14 14:45:00, Duration: 30 day, Stop date: 11/28/14 14:44:00Notes: (Same as:MORPhine Sulfate) Naloxone 0.1 mg, 0.25 mL, No Longer [place] Route: IVP, Drug Active 2014 Medical form: INJ, Q2MIN, Center Dosing Weight 111.364, kg, PRN Narcotic Reversal, Start date: 10/29/14 12:43:00, Duration: 8 doses or times, Stop date: Limited # of timesNotes: Same as Narcan Ancef 2 gm, 100 mL, Inactive [place] Route: IVPB, Drug 2014 Medical form: INJ, ONCE, Center Dosing Weight 109.091, kg, Start date: 10/29/14 10:37:00, Duration: 1 doses or times, Stop date: 10/29/14 10:37:00Notes: Same as Ancef Dexamethasone 4 mg, 1 mL, Inactive [facility] Route: IV, Drug 2014 Medical form: INJ, ONCE, Center Dosing Weight 109.091, kg, Start date: 10/29/14 10:37:00, Stop date: 10/29/14 10:37:00Notes: Concentration: 4mg/ml Celebrex 400 mg, 2 cap, Inactive [facility] Route: PO, Drug 2014 Medical form: CAP, ONCE, Center Dosing Weight 109.091, kg, Start date: 10/29/14 10:36:00, Stop date: 10/29/14 10:36:00Notes: NSAID. Please check indication. Not for seizure. (Same As: CeleBREX) Zofran 4 mg, 2 mL, Inactive [facility] Route: IV, Drug 2014 Medical form: INJ, ONCE, Center Dosing Weight 109.091, kg, Start date: 10/29/14 10:36:00, Stop date: 10/29/14 10:36:00Notes: (Same as: Elijah) MEDICATION WASTE Product Size: 4 mg Product Wasted: ___ mg ropivacaine 100 mL, Route: Inactive [facility] InFILtration([place] 2015 Medical l), Drug Form: Center INJ, ONCE, Start date: 10/29/14 7:30:00, Stop date: 10/29/14 7:30:00Notes: NOT FOR IV use Ropivacaine 5 mg/mL (49.25 mL) Epinephrine 1 mg/mL (0.5 mL) Clonidine 0.1 mg/mL (0.8 mL) Ketorolac 30 mg/mL (1 mL) Normal Saline 48.45 mL Vitamin D3 1000 1,000 IntlUnit=1 Active [facility] intl units oral tab, PO, Daily, # 2015 Medical tablet 30 tab, 0 Center Refill(s) Vitamin C 500 mg 500 mg=1 cap, PO, Active [facility] oral capsule Daily, # 30 cap, 2014 Medical 0 Refill(s) [place] Fish Oil 1000 mg 1,000 mg=1 cap, Active [facility] oral capsule PO, Daily, 0 2014 Medical Refill(s) [place] Aspirin 81 MG 81 mg=1 tab, PO, No Longer [facility] Enteric Coated Daily, # 90 tab, Active 2014 Medical Tablet 3 Refill(s) [place] 120 ACTUAT 2 spray, NASAL, Active [facility] Triamcinolone Daily, # 17 gm, 0 2014 [facility] Acetonide 0.055 Refill(s) [place] MG/ACTUAT Nasal Inhaler [Nasacort] multivitamin 1 tab, PO, Daily, Active [facility] 0 Refill(s) [address] [place] [address] tamsulosin 0.4 mg 0.4 mg=1 cap, PO, Active [facility] oral capsule Daily, # 30 cap, 2014 Medical 0 Refill(s) [place] topiramate 25 mg 50 mg=2 tab, PO, Active [facility] oral tablet Daily, # 180 tab, 2014 Medical 0 Refill(s) [place] Zyrtec-D 1 tab, PO, Daily, Active [facility] 0 Refill(s) 2015 Medical Center lisinopril 20 mg 20 mg=1 tab, PO, Active [place] oral tablet BID, # 30 tab, 0 2014 Medical Refill(s) Center carvedilol 12.5 12.5 mg=1 tab, Active [place] mg oral tablet PO, QAM, # 60 2015 Medical tab, 0 Refill(s) [place] ZYRTEC ALLERGY 10 Take 1 tablet by [...] Active & CONGESTION mouth daily 2013 Medical [id number] Group TRAMADOL HCL 50 Take 1 tsablet by Active MG TABS mouth twice daily 2013 Medical Group TOPIRAMATE 25 MG Take 1 tablet by Active TABS mouth twice daily 2013 Medical Group TAMSULOSIN HCL Take 1 capsule by Active 0.4 MG CAPS mouth twice daily 2013 Medical Group TOPIRAMATE 25 MG Take 2 tablets by Active TABS mouth every AM & 2013 Medical 1 tablet by mouth Group every PM TRAMADOL HCL 50 Take 1 tsablet by Active MG TABS mouth twice daily 2013 Medical Group CARVEDILOL 12.5 Take 1 tablet by Active MG TABS mouth daily 2013 Medical Group VENTOLIN HFA 108 Use 2 puffs every Active 12/12/ (90 BASE) MCG/ACT 6 hours as needed 2013 Medical [facility] LISINOPRIL 20 MG Take tablet by Active 12/12/ TABS mouth twice daily 2013 Medical Group TOPIRAMATE 25 MG Take 1 tablet by Active 12/12/ TABS mouth twice daily 2013 Medical Group TRAMADOL HCL 50 Take 1 tsablet by Active 12/12/ MH MG TABS mouth twice daily 2013 Medical Group VENTOLIN HFA 108 Use 2 puffs every Active 12/12/ (90 BASE) MCG/ACT 6 hours as needed 2013 Medical [facility] TRAMADOL HCL 50 Take 1 tablet by No Longer 12/12/ MH MG TABS mouth q6h prn Active 2013 Medical pain Group LISINOPRIL 20 MG Take tablet by Active 12/12/ TABS mouth twice daily 2013 Medical Group TRAMADOL HCL 50 Take 1 tablet by No Longer 08/05/ MH MG TABS mouth q6h prn Active 2013 Medical pain Group TOPIRAMATE 25 MG Take 2 tablets by Active 12/12/ TABS mouth every AM & 2013 Medical 1 tablet by mouth Group every PM LISINOPRIL 20 MG Take tablet by Active 12/12/ TABS mouth twice daily 2013 Medical Group TRAMADOL HCL 50 Take 1 tablet by No Longer 05/ MH MG TABS mouth q6h prn Active 2013 Medical pain Group CARVEDILOL 12.5 Take 1 tablet by No Longer 05/ MH MG TABS mouth daily Active 2013 Medical Group Allergies, Adverse Reactions, Alerts Substance Category Reaction Severity Reaction Status Date Comments Source type Reported Immunizations Immunization Date Site Status Last Updated Comments Source Given tetanus-diphtheri Left completed [place] Result Medical a 6 Deltoid Comment: [facility] Group toxoids<sup>1</rodriguez #[id number] p> 58 No reaction. Results Order Name Results Value Reference Date Interpretation Comments Source Range Chest 2 Chest 2 EXAM: Chest 2 [facility] [employer] HISTORY: - reactive airway cough COMPARISON: 07/17/2016 [...] 2 Exam: Two-view chest x-ray 07/17 - [facility] DX views /2016 - [employer] Reason for Exam: bronchitis Read by: Tai Rai MD Dictated Date/time: 07/17/16 09:42 Electronically Signed [...] HEMATOLOGY Hct 25.9 % 42.0 - 11/07 [facility] 54.0 [facility] HEMATOLOGY Hgb 8.3 g/dL 14.0 - 11/07 [facility] 18.0 [facility] CHEM PANEL eGFR 77 11/06 2Result Comment: The eGFR is calculated using the CKD-EPI formula. In most young, healthy individuals the eGFR will be >90 mL/ min/1.73m2. The eGFR declines with age. An eGFR of 60-89 may be normal in [facility] mL/min/1. some populations, particularly the elderly, for whom the CKD-EPI formula has not been extensively validated. Use of the eGFR is not recommended in the following populations: [address] Individuals with unstable creatinine concentrations, including [...] values reflect the clinical guidelines of the [place] [employer]. [facility] CHEM PANEL BUN 16 mg/dL 7 - 22 11/06 MH [facility] CHEM PANEL AGAP 15.8 meq/L 10.0 - 11/06 [facility] 20.0 [facility] CHEM PANEL Chloride Lvl 104 meq/L 95 - 109 11/06 [facility] CHEM PANEL Sodium Lvl 139 meq/L 135 - 145 11/06 1Result Comment: Medical performed by Center alternative method IStat. CHEM PANEL Potassium 3.8 meq/L 3.5 - 5.1 11/06 [facility] Lv [facility] CHEM PANEL Creatinine 1.0 mg/dL 0.5 - 1.4 11/06 [facility] Lv [facility] CHEM PANEL CO2 23 meq/L 24 - 11/06 [facility] CHEM PANEL Calcium Lvl 7.8 mg/dL 8.5 - 10.5 11/06 [facility] HEMATOLOGY Hct 28.4 % 42.0 - 11/06 [facility] 54. [facility] HEMATOLOGY Hgb 9.3 g/dL 14.0 - 11/06 [facility] 18.0 [facility] BLOOD BANK ABO/Rh O POS 11/05 [facility] RESULTS [facility] BLOOD BANK Antibody Negative 11/05 [facility] RESULTS Scrn [facility] (11/05/14 3:50 PM) [place] CHEM PANEL eGFR 69 11/05 3Res Comment: The eGFR is calculated using the CKD-EPI formula. In most young, healthy individuals the eGFR will be >90 mL/ min/1.73m2. The eGFR declines with age. An eGFR of 60-89 may be normal in [facility] mL/min/1. some populations, particularly the elderly, for whom the CKD-EPI formula has not been extensively validated. Use of the eGFR is not recommended in the following populations: [address] Individuals with unstable creatinine concentrations, including [...] Lvl 104 meq/L 95 - 109 11/05 [facility] CHEM PANEL CO2 20 meq/L 24 - 32 11/05 [facility] Center CHEM PANEL AGAP 16.3 meq/L 10.0 - 11/05 20.0 [facility] CHEM PANEL Calcium Lvl 9.1 mg/dL 8.5 - 10.5 11/05 [facility] CHEM PANEL Creatinine 1.1 mg/dL 0.5 - 1.4 11/05 [facility] CHEM PANEL Glucose Lvl 120 mg/dL 70 - 99 11/05 5Interpretive Data: Adult reference range values reflect the clinical guidelines of the [place] [employer]. [facility] Center CHEM PANEL BUN 16 mg/dL 7 - 22 11/05 [facility] CHEM PANEL Sodium Lvl 136 meq/L 135 - 145 11/05 [facility] CHEM PANEL Potassium 4.3 meq/L 3.5 - 5.1 11/05 [facility] HEMATOLOGY Sed Rate 35 mm/h 0 - 15 11/05 [facility] HEMATOLOGY MPV 9.5 fL 7.4 - 10.4 11/05 [facility] HEMATOLOGY Platelet 273 K/CMM 133 - 450 11/05 [facility] HEMATOLOGY RDW 13.3 % 11.5 - 11/05 14.5 [facility] HEMATOLOGY MCHC 33.5 g/dL 32.0 - 11/05 36.0 [facility] HEMATOLOGY MCH 30.5 pg 27.0 - 11/05 31.0 [facility] HEMATOLOGY MCV 91.1 fL 80.0 - 11/05 94.0 [facility] HEMATOLOGY Hct 36.7 % 42.0 - 11/05 54.0 [facility] HEMATOLOGY Hgb 12.3 g/dL 14.0 - 11/05 18.0 [facility] HEMATOLOGY RBC X 10x6 4.03 M/CMM 4.70 - 11/05 6.10 [facility] HEMATOLOGY WBC X 10x3 12.5 K/CMM 3.7 - 10.4 11/05 [facility] HEMATOLOGY Basophils # 0.0 K/CMM 0.0 - 0.2 11/05 [facility] HEMATOLOGY Eosinophils 0.0 K/CMM 0.0 - 0.5 11/05 [facility] HEMATOLOGY Lymphocytes 0.6 K/CMM 1.0 - 5.5 11/05 [facility] # /2014 [facility] HEMATOLOGY Monocytes # 0.9 K/CMM 0.0 - 0.8 11/05 [facility] HEMATOLOGY Segs-Bands # 10.9 K/CMM 1.5 - 8.1 11/05 2014 [facility] HEMATOLOGY Basophils 0.1 % 0.0 - 1.0 11/05 [facility] HEMATOLOGY Eosinophils 0.1 % 0.0 - 4.0 11/05 [facility] HEMATOLOGY Lymphocytes 5.1 % 20.0 - 11/05 [facility] 40.0 [facility] HEMATOLOGY Monocytes 7.5 % 2.0 - 12.0 11/05 [facility] HEMATOLOGY Segs 87.2 % 45.0 - 11/05 [facility] 75.0 [facility] IMMUNOLOGY C-REACTIVE 51.5 mg/L <=2.9 mg/L 11/05 [facility] PROTEIN [facility] HEMATOLOGY Hgb 11.8 g/dL 14.0 - 10/31 [facility] 18.0 [facility] HEMATOLOGY Hct 36.2 % 42.0 - 10/31 [facility] 54.0 [facility] ELECTROLYTE AGAP 13.3 meq/L 10.0 - 10/30 [facility] 20.0 [facility] ELECTROLYTE Calcium Lvl 8.3 mg/dL 8.5 - 10.5 10/30 [facility] ELECTROLYTE CO2 23 meq/L 24 - 32 10/30 [facility] /2014 [facility] ELECTROLYTE Chloride Lvl 103 meq/L 95 - 109 10/30 [facility] S [facility] ELECTROLYTE Sodium Lvl 135 meq/L 135 - 145 10/30 [facility] S [facility] ELECTROLYTE Potassium 4.3 meq/L 3.5 - 5.1 10/[address] [facility] ELECTROLYTE BUN 14 mg/dL 7 - 22 10/30 [facility] ELECTROLYTE Creatinine 1.0 mg/dL 0.5 - 1.4 10/[address] [facility] ELECTROLYTE Glucose Lvl 154 mg/dL 70 - 99 10/30 3Interpretive Data: Adult reference range values reflect the clinical guidelines [facility] of the [place] [employer]. [facility] ELECTROLYTE eGFR 77 10/30 1Result Comment: The eGFR is calculated using the CKD-EPI formula. In most young, healthy individuals the eGFR will be > 90 mL/min/1.73m2. The eGFR declines with age. An eGFR of 60-89 may be normal in [facility] S mL/min/1. some populations, particularly the elderly, for whom the CKD-EPI formula has not been extensively validated. Use of the eGFR is not recommended in the following populations: [address] Individuals with unstable creatinine concentrations, including [...] HEMATOLOGY Hct 41.6 % 42.0 - 10/30 [facility] 54.0 [facility] HEMATOLOGY Hgb 13.7 g/dL 14.0 - 10/30 [facility] 18.0 [facility] CHEM PANEL eGFR 97 10/29 2Result Comment: The eGFR is calculated using the CKD-EPI formula. In most young, healthy individuals the eGFR will be >90 mL/ min/1.73m2. The eGFR declines with age. An eGFR of 60-89 may be normal in [facility] mL/min/05.16 some populations, particularly the elderly, for whom the CKD-EPI formula has not been extensively validated. Use of the eGFR is not recommended in the following populations: [address] Individuals with unstable creatinine concentrations, including [...] POC AGAP 17.0 meq/L 10.0 - 10/29 [facility] 20.0 [facility] CHEM PANEL POC 38.0 % 42.0 - 10/29 [facility] Hematocrit 54.0 [facility] CHEM PANEL POC 4.4 meq/L 3.5 - 5.1 10/29 [facility] Potassium [facility] CHEM PANEL POC Sodium 138 meq/L 135 - 145 10/29 [facility] CHEM PANEL POC Carbon 22 mEq/dL 24 - 32 10/29 [place] Dioxide /2014 [facility] Center CHEM PANEL POC Chloride 105 meq/L 95 - 109 10/29 /2014 [facility] Center CHEM PANEL POC 12.9 g/dL 14.0 - 10/29 [facility] Hemoglobin 18.0 /2014 [facility] Center CHEM PANEL POC Ion Ca 1.24 1.05 - 10/29 [facility] mMol/L 1.25 /2014 [facility] Center CHEM PANEL POC Glucose 132 mg/dL 70 - 99 10/29 [facility] Center CHEM PANEL POC 0.7 mg/dL 0.5 - 1.4 10/29 [facility] Creatinine /2014 [facility] Center CHEM PANEL POC BUN 10 mg/dL - 10/29 /2014 [facility] Center BLOOD BANK RBC product Product available 10/29 [facility] RESULTS /2014 Medical (10/29/14 2:59 PM) Center BLOOD BANK Antibody Negative 10/29 [facility] RESULTS Scrn [facility] (10/29/14 9:27 AM) Center BLOOD BANK ABO/Rh O POS 10/29 [facility] RESULTS [facility] Center Chemistry SODIUM 140 mmol/L 135 - 143 10/24 [facility] Group Chemistry POTASSIUM 4.6 mmol/L 3.3 - 5.0 10/24 [facility] Chemistry ALBUMIN 4.2 g/dL 3.5 - 5.0 10/24 [facility] Chemistry CALCIUM 9.3 mg/dL 8.6 - 9.8 10/24 [facility] Chemistry CREATININE 1.03 mg/dL 0.46 - 10/24 1.20 [facility] Chemistry BUN 15 mg/dL 10 - 22 10/24 [facility] Chemistry ALK PHOS 74 U/L [...] HGB 17.3 g/dL 12.3 - 10/24 17.3 /2014 [facility] Hematology HCT 51.8 % 36.7 - 10/24 50.5 /2014 [facility] Chemistry SODIUM 140 mmol/L 135 - 143 08 [facility] Chemistry POTASSIUM 4.3 mmol/L 3.3 - 5.0 12/12 [facility] Chemistry SODIUM 140 mmol/L 135 - 143 08 [facility] Chemistry POTASSIUM 4.3 mmol/L 3.3 - 5.0 12/12 [facility] Chemistry BUN 18 mg/dL 10 - 22 12/12 [facility] Chemistry CREATININE 1.09 mg/dL 0.46 - 12/12 1.20 /2013 [facility] Chemistry CALCIUM 9.9 mg/dL 8.6 [...] TSH 1.21 0.34 - 12/12 uIU/mL 5.60 /2013 [facility] Hematology HGB 16.9 g/dL 12.3 - 12/12 17.3 [facility] Hematology HCT 49.3 % 36.7 [...] 12/25/2014 Medical Group Respitory Rate 20 11/08/2014 [facility] Systolic (mm Hg) 127 11/08/2014 [facility] Diastolic (mm Hg) 88 11/08/2014 [facility] Heart Rate 107 11/08/2014 [facility] Temperature Oral (F) 98.9 F 11/08/2014 [facility] Heart Rate 72 11/07/2014 [facility] Systolic (mm Hg) 109 11/07/2014 [facility] Diastolic (mm Hg) 65 11/07/2014 [facility] Respitory Rate 18 11/07/2014 [facility] Temperature Oral (F) 98.1 F 11/07/2014 [facility] Heart Rate 103 11/07/2014 [facility] Respitory Rate 17 11/07/2014 [facility] Systolic (mm Hg) 126 11/07/2014 [facility] Diastolic (mm Hg) 84 11/07/2014 [facility] Temperature Oral (F) 97.9 F 11/07/2014 [facility] BMI Calculated 35.08 11/05/2014 [facility] Weight 110.909 11/05/2014 [facility] Height 177.8 cm 11/05/2014 [facility] BMI Calculated 35.08 11/05/2014 [facility] Weight 110.909 11/05/2014 [facility] Height 177.8 cm 11/05/2014 [facility] Systolic (mm Hg) 134 10/31/2014 [facility] Diastolic (mm Hg) 81 10/31/2014 [facility] Heart Rate 94 10/31/2014 [facility] Temperature Oral (F) 98.1 F 10/31/2014 [facility] Respitory Rate 17 10/31/2014 [facility] Heart Rate 98 10/31/2014 [facility] Respitory Rate 18 10/31/2014 [facility] Temperature Oral (F) 98.3 F 10/31/2014 [facility] Systolic (mm Hg) 108 10/31/2014 [facility] Diastolic (mm Hg) 66 10/31/2014 [facility] Temperature Oral (F) 98.3 F 10/31/2014 [facility] Systolic (mm Hg) 117 10/31/2014 [facility] Diastolic (mm Hg) 72 10/31/2014 [facility] Heart Rate 96 10/31/2014 [facility] Respitory Rate 17 10/31/2014 [facility] Height 177.8 cm 10/29/2014 [facility] BMI Calculated 35.23 10/29/2014 [facility] Weight 111.364 10/29/2014 [facility] BMI Calculated 34.51 10/26/2014 [facility] Weight 109.091 10/26/2014 [facility] Height 177.8 cm 10/26/2014 [facility] Weight 248.8 10/24/2014 [facility] Temperature Oral [...] Date Visit [facility] Office [id number] Art 12/12 12/12 [place] Medical Visit [address], /2013 Francisco Fall MD [facility] Lab Report [id number] Art 12/12 12/12 [place] [facility] [address], /2013 Francisco Fall MD [facility] Office [id number] Nadim 12/27 12/27 [place] Medical Visit 4510 MD Nafisa /2013 [facility] Gastro[facility] Lab Report [id number] Art 04/12 04/12 [place] [facility] [address], /2013 Francisco Fall MD [facility] Office [id number] Art 06/14 06/14 [place] Medical Visit [address], /2014 Francisco Fall MD [facility] Office [id number] Art 06/22 06/22 [place] Medical Visit [address], /2014 Francisco Fall MD [facility] Lab Report [id number] Art 10/24 10/24 [place] [address], /2014 Francisco Fall MD [facility] Inpatient [id number] Dameon 10/29 10/31 [facility] /2014 [facility] Inpatient [id number] Dameon 11/05 11/07 [facility] /2014 [facility] Office [id number] Art 12/25 12/25 [place] Medical Visit [address], /2014 Francisco Fall MD [facility] Outpatient [id number] ART 12/25 Active [facility] KEELY [facility] Outpatient [id number] ART 06/24 Active [facility] LAXMI [facility] Outpatient [id number] ART 06/26 Active [facility] LAXMI [facility] Outpatient [id number] NADIM 07/16 Active [facility] NAFISA [facility] Outpatient [id number] CASSANDRA 08/28 Active [facility] BLANC [facility] Outpatient [id number] ART 10/23 Active [facility] LAXMI [facility] Outpatient [id number] ART 04/30 Active [facility] LAXMI [facility] Outpatient [id number] ART 06/15 Active [facility] KEELY [facility] Outpatient [id number] ART 07/16 Active [facility] KEELY [facility] Outpatient [id number] XRAY VISIT 07/17 Active [facility] Outpatient [id number] XRAY VISIT 07/17 Active [facility] Outpatient [id number] JERECIA 08/27 Active [facility] JEFFRIES [facility] Outpatient [id number] CASSANDRA 09/28 Active [facility] Outpatient [id number] JERECIA 10/01 [facility] Outpatient [id number] ART 12/01 Active [facility] CALEB [facility] Outpatient [id number] XRAY VISIT 12/01 Active [facility] Outpatient [id number] CASSANDRA 01/20 Active [facility] BLANC [facility] Outpatient [id number] 04/27 Active [facility] Amb[facility] [id number] 04/27 Urology Pre-Reg /2016 [facility] Outpatient [id number] 05/04 Active [facility] Outpatient [id number] 05/04 Urology /2016 [facility] Outside [id number] 06/10 06/12 Primary Medical /2017 [facility] [place] Outpatient [id number] 08/03 Active [facility] Outpatient [id number] 08/03 Urology /2017 [facility] Outside [id number] 08/31 09/02 Primary Medical /2017 [facility] [place] Outpatient [id number] 09/21 Active [facility] Outpatient [id number] 09/21 Urology /2017 [facility] Outpatient [id number] 10/26 Active [facility] Ambulatory [id number] 10/26 Urology Pre-Reg /2017 [facility] Phone [phone] 11/15 11/17 Primary Message /2017 [facility] [place] Outpatient [id number] CASSANDRA 11/18 Active [facility] BLANC [employer] [facility] Outpatient [id number] Cassandra 11/18 11/19 Primary Blanc /2017 [facility] [place] Outpatient [id number] CASSANDRA 01/11 Active [facility] BLANC [facility] Outpatient [id number] JERECIA 01/11 Active [facility] JEFFRIES [facility] Outpatient [id number] CASSANDRA 02/10 Active [facility] BLANC [employer] [facility] Outpatient [id number] SIRENA MENDES 09/27 [facility] Procedures Procedure Code Date Perfomer [place] [address] 08/03/2017 [facility] residual urine and/or bladder capacity by ultrasound, non-imaging Nasal sinus [id number] 05/10/2017 Medical [place] [address] 05/04/2017 Medical post-voiding Group residual urine and/or bladder capacity by ultrasound, non-imaging Hip replacement [id number] 10/29/2014 [facility] Group Hip replacement [id number] 10/29/2014 [facility] Arthroscopy of [id number] x2 Medical knee<sup>1</sup> Group Carpal tunnel [id number] x2, bone graft Medical decompression<sup> and joint Group 2</sup> corrected Hernia repair [id number] Medical [facility] Knee joint [id number] ligament repair Medical operation<sup>3</s Group up> Rotator cuff [id number] [facility] Spinal fusion [id number] Medical Group Total knee [id number] Medical replacement Group Arthroscopy of [id number] 1x2 [facility] knee<sup>1</sup> [facility] Carpal tunnel [id number] 2x2, bone graft [facility] decompression<sup> and joint Medical 2</sup> corrected Center Hernia repair [id number] [facility] Knee joint [id number] 3ligament [facility] operation<sup>3</s repair Medical up> Center Rotator cuff [id number] [facility] Spinal fusion [id number] [facility] Total knee [id number] [facility]
--- OUTSIDE RECORDS SUMMARY | 2018-02-11 09:51 | XMS REPORT | Continuity of Care Document ---
:1945 Author Organization [facility] Care Team Providers Name Role Phone MD Cahto, Art Unavailable Unavailable Insurance Providers Payer name Policy type / Policy ID Covered constitution party ID Policy [place] Coverage type HUMANA - CHOICE REGIONAL (MEDICARE REPLACEME Encounters Encounter Performer Location Date Office Visit Suleman Reis MD [facility] [place] [facility] Dec Practice Problems Problem Effective Dates [...] by mouth daily Dec 12, 2013 Active [id number] TRAMADOL HCL 50 MG TABS Take 1 [...]
--- OUTSIDE RECORDS SUMMARY | 2018-02-11 09:51 | XMS REPORT | Continuity of Care Document ---
:1945 Author Organization [facility] Care Team Providers Name Role Phone MD Chato, Art Unavailable Unavailable Insurance Providers Payer name Policy type / Policy ID Covered libertarian ID Policy [place] Coverage type HUMANA - CHOICE REGIONAL (MEDICARE REPLACEME Encounters Encounter Performer Location Date Lab Report Art MD Chato [facility] [place] [facility] Apr 12, 2014 Practice Problems Problem [...] by mouth daily Dec 12, 2013 Active [id number] CIPROFLOXACIN HCL 500 MG TABS 1 tablet [...] Dec 12, sodium, serum SODIUM 140 mmol/L [phone] Dec 12, potassium, serum POTASSIUM 4.3 mmol/L 3.3-5.0 2013Dec 12, urea nitrogen, blood BUN 18 mg/dL 10-22 2013Dec 12, creatinine, serum CREATININE 1.09 mg/dL 0.46-1.20 2013Dec 12, calcium, serum CALCIUM 9.9 mg/dL 8.6-9.8 High 2013Dec 12, cholesterol, serum CHOLESTEROL 179 mg/dl [phone] Dec 12, HDL cholesterol, HDL 48 mg/dl [...]
--- OUTSIDE RECORDS SUMMARY | 2018-02-11 09:51 | XMS REPORT | Continuity of Care Document ---
:1945 Author Organization [facility] Care Team Providers Name Role Phone MD Chato, Art Unavailable Unavailable Insurance Providers Payer name Policy type / Policy ID Covered republican ID Policy [place] Coverage type HUMANA - CHOICE REGIONAL (MEDICARE REPLACEME Encounters Encounter Performer Location Date Lab Report Art MD Chato [facility] [place] [facility] Dec 12, 2013 Practice Problems Problem [...] by mouth daily Dec 12, 2013 Active [id number] TRAMADOL HCL 50 MG TABS Take 1 [...] Dec 12, sodium, serum SODIUM 140 mmol/L [phone] Dec 12, potassium, serum POTASSIUM 4.3 mmol/L 3.3-5.0 2013Dec 12, urea nitrogen, blood BUN 18 mg/dL 10-22 2013Dec 12, creatinine, serum CREATININE 1.09 mg/dL 0.46-1.20 2013Dec 12, calcium, serum CALCIUM 9.9 mg/dL 8.6-9.8 High 2013Dec 12, cholesterol, serum CHOLESTEROL 179 mg/dl [phone] Dec 12, HDL cholesterol, HDL 48 mg/dl [...]
--- OUTSIDE RECORDS SUMMARY | 2018-02-11 09:51 | XMS REPORT | Continuity of Care Document ---
:[address] [facility] Care Team Providers Name Role Phone MD Ingrid, Rodney Unavailable Unavailable Insurance Providers Payer name Policy type / Policy ID Covered republican ID Policy [place] Coverage type HUMANA - CHOICE REGIONAL (MEDICARE REPLACEME Encounters Encounter Performer Location Date Office Visit Rodney Quintero MD [facility] Medical [place] Dec 27, 2013 Gastroenterology [...] by mouth daily Dec 12, 2013 Active [id number] TRAMADOL HCL 50 MG TABS Take 1 [...] Dec 12, sodium, serum SODIUM 140 mmol/L [phone] Dec 12, potassium, serum POTASSIUM 4.3 mmol/L 3.3-5.0 2013Dec 12, urea nitrogen, blood BUN 18 mg/dL 10-22 2013Dec 12, creatinine, serum CREATININE 1.09 mg/dL 0.46-1.20 2013Dec 12, calcium, serum CALCIUM 9.9 mg/dL 8.6-9.8 High 2013Dec 12, cholesterol, serum CHOLESTEROL 179 mg/dl [phone] Dec 12, HDL cholesterol, HDL 48 mg/dl [...]
--- OUTSIDE RECORDS SUMMARY | 2018-02-11 09:52 | XMS REPORT | Continuity of Care Document ---
:1945 Author Organization [facility] Care Team Providers Name Role Phone MD Chato, Art Unavailable Unavailable Insurance Providers Payer name Policy type / Policy ID Covered democrat ID Policy [place] Coverage type HUMANA - CHOICE REGIONAL (MEDICARE REPLACEME Encounters Encounter Performer Location Date Office Visit Art MD Chato [facility] Medical [place] Family Dec Practice Problems Problem Effective Dates [...] by mouth daily Dec 12, 2013 Active [id number] CARVEDILOL 12.5 MG TABS Take 1 tablet [...] 2014Dec 12, sodium, serum SODIUM 140 mmol/L [phone] Dec 12, potassium, serum POTASSIUM 4.3 mmol/L 3.3-5.0 2013Dec 12, urea nitrogen, blood BUN 18 mg/dL 10-2013Dec 12, creatinine, serum CREATININE 1.09 mg/dL 0.46-1.20 2013Dec 12, calcium, serum CALCIUM 9.9 mg/dL 8.6-9.8 High 2013Dec 12, cholesterol, serum CHOLESTEROL 179 mg/dl [phone] Dec 12, HDL cholesterol, HDL 48 mg/dl [...] Oct 24, sodium, serum SODIUM 140 mmol/L [phone] Oct 24, potassium, serum POTASSIUM 4.6 mmol/L [...]
--- OUTSIDE RECORDS SUMMARY | 2018-02-11 09:52 | XMS REPORT | Continuity of Care Document ---
:[address] [facility] Care Team Providers Name Role Phone MD Chato, Art Unavailable Unavailable Insurance Providers Payer name Policy type / Policy ID Covered green party ID Policy [place] Coverage type HUMANA - CHOICE REGIONAL (MEDICARE REPLACEME Encounters Encounter Performer Location Date Lab Report Art MD Chato [facility] Medical [place] [facility] Oct 24, 2014 Practice Problems Problem [...] by mouth daily Dec 12, 2013 Active [id number] Vital Signs Date Description Test Result Dec [...] 2014Dec 12, sodium, serum SODIUM 140 mmol/L [phone] Dec 12, potassium, serum POTASSIUM 4.3 mmol/L 3.3-5.0 2013Dec 12, urea nitrogen, blood BUN 18 mg/dL 10-22 2013Dec 12, creatinine, serum CREATININE 1.09 mg/dL 0.46-1.20 2013Dec 12, calcium, serum CALCIUM 9.9 mg/dL 8.6-9.8 High 2013Dec 12, cholesterol, serum CHOLESTEROL 179 mg/dl [phone] Dec 12, HDL cholesterol, HDL 48 mg/dl [...] Oct 24, sodium, serum SODIUM 140 mmol/L [phone] Oct 24, potassium, serum POTASSIUM 4.6 mmol/L [...]
--- OUTSIDE RECORDS SUMMARY | 2018-02-11 09:52 | XMS REPORT | Continuity of Care Document ---
:1945 Author Organization [facility] Care Team Providers Name Role Phone MD Chato, Art Unavailable Unavailable Insurance Providers Payer name Policy type / Policy ID Covered constitution party ID Policy [place] Coverage type HUMANA - CHOICE REGIONAL (MEDICARE REPLACEME Encounters Encounter Performer Location Date Lab Report Art MD Chato [facility] Medical [place] Family Oct 24, 2014 Practice Problems Problem [...] by mouth daily Dec 12, 2013 Active [id number] Vital Signs Date Description Test Result Dec [...] Dec 12, sodium, serum SODIUM 140 mmol/L [phone] Dec 12, potassium, serum POTASSIUM 4.3 mmol/L 3.3-5.0 2013Dec 12, urea nitrogen, blood BUN 18 mg/dL 10-22 2013Dec 12, creatinine, serum CREATININE 1.09 mg/dL 0.46-1.20 2013Dec 12, calcium, serum CALCIUM 9.9 mg/dL 8.6-9.8 High 2013Dec 12, cholesterol, serum CHOLESTEROL 179 mg/dl [phone] Dec 12, HDL cholesterol, HDL 48 mg/dl [...]
--- OUTSIDE RECORDS SUMMARY | 2018-02-11 09:52 | XMS REPORT | Continuity of Care Document ---
:1945 Author Organization [facility] Care Team Providers Name Role Phone MD Chato, Art Unavailable Unavailable Insurance Providers Payer name Policy type / Policy ID Covered libertarian ID Policy [place] Coverage type HUMANA - CHOICE REGIONAL (MEDICARE REPLACEME Encounters Encounter Performer Location Date Office Visit Suleman Reis MD [facility] Medical [place] Family Jun Practice Problems Problem Effective Dates [...] by mouth daily Dec 12, 2013 Active [id number] CIPROFLOXACIN HCL 500 MG TABS 1 tablet [...] Dec 12, sodium, serum SODIUM 140 mmol/L [phone] Dec 12, potassium, serum POTASSIUM 4.3 mmol/L 3.3-5.0 2013Dec 12, urea nitrogen, blood BUN 18 mg/dL 10-22 2013Dec 12, creatinine, serum CREATININE 1.09 mg/dL 0.46-1.20 2013Dec 12, calcium, serum CALCIUM 9.9 mg/dL 8.6-9.8 High 2013Dec 12, cholesterol, serum CHOLESTEROL 179 mg/dl [phone] Dec 12, HDL cholesterol, HDL 48 mg/dl [...]
--- OUTSIDE RECORDS SUMMARY | 2018-02-11 09:52 | XMS REPORT | Continuity of Care Document ---
:1945 Author Organization [facility] Care Team Providers Name Role Phone MD Chato, Art Unavailable Unavailable Insurance Providers Payer name Policy type / Policy ID Covered constitution party ID Policy [place] Coverage type HUMANA - CHOICE REGIONAL (MEDICARE REPLACEME Encounters Encounter Performer Location Date Office Visit Suleman Reis MD [facility] Medical [place] Family Jun Practice Problems Problem Effective Dates [...] by mouth daily Dec 12, 2013 Active [id number] CIPROFLOXACIN HCL 500 MG TABS 1 tablet [...] Dec 12, sodium, serum SODIUM 140 mmol/L [phone] Dec 12, potassium, serum POTASSIUM 4.3 mmol/L 3.3-5.0 2013Dec 12, urea nitrogen, blood BUN 18 mg/dL 10-22 2013Dec 12, creatinine, serum CREATININE 1.09 mg/dL 0.46-1.20 2013Dec 12, calcium, serum CALCIUM 9.9 mg/dL 8.6-9.8 High 2013Dec 12, cholesterol, serum CHOLESTEROL 179 mg/dl [phone] Dec 12, HDL cholesterol, HDL 48 mg/dl [...]
[2018-02-11 10:55] LABS: Absolute Lymphocytes (CBC) 0.7 K/uL (0.7-4.9); Absolute Monocytes 1.5 K/uL (0.1-1.3); Absolute Neutrophil 14.1 K/uL (1.8-8.0); Basophils % 0.3 % (0-1.3); Eosinophils % 0.9 % (0-4.4); Hematocrit 45.6 % (39.6-49.0); Lymphocytes % 4.2 % (15.3-44.8); MCH 30.6 pg (27.0-35.0); MPV 7.2 fL (7.6-11.3); Monocytes % 9.4 % (3.3-12.3); RBC Red Blood Cell Count 5.06 M/uL (4.33-5.43)
[2018-02-11] MEDS ORDERED: NA CHLORIDE 0.9% 500 ML ONE (10:56)
[2018-02-11] MEDS ORDERED: LEVALBUTEROL 1.25 MG/3 ML NEB ONE (10:56)
[2018-02-11] MEDS ORDERED: HYDROCODONE/APAP 10/325 TAB ONE (10:56)
--- NOTE | 2018-02-11 10:57 | RAD REPORT ---
EXAM DESCRIPTION: RAD - Chest Single View - 02/11/2018 10:49 am CLINICAL HISTORY: Cough;Dyspnea Chest pain. COMPARISON: Chest Single View dated 02/07/2018 FINDINGS: Portable technique limits examination quality. The lungs are underinflated with subsegmental atelectasis in both lung bases. The heart is normal in size. No displaced fractures. IMPRESSION: Underinflated lungs with atelectasis in both lung bases.
[2018-02-11 10:59] LABS: Protime INR 1.39
[2018-02-11 11:08] LABS: BUN Blood Urea Nitrogen 21 mg/dL (7-18); Bicarbonate 24 mmol/L (21-32); Glucose Level 97 mg/dL (74-106); NT PRO-BNP 243 pg/mL (<125); Potassium 3.7 mmol/L (3.5-5.1); Sodium Level 137 mmol/L (136-145); Troponin (Emerg Dept Use Only) < 0.02 ng/mL (0.0-0.045)
--- NOTE | 2018-02-11 11:43 | RAD REPORT ---
EXAM DESCRIPTION: CT - Chest For Pe Angio - 02/11/2018 11:30 am CLINICAL HISTORY: Chest pain. hypoxia, recent hospitalization;Dyspnea;Cough COMPARISON: No comparisons TECHNIQUE: CT angiogram of the pulmonary arteries was performed with MIP. All CT scans are performed using dose optimization technique as appropriate and may include automated exposure control or mA/KV adjustment according to patient size. FINDINGS: No evidence of pulmonary thromboembolism. No acute aortic finding demonstrated. Airspace opacity is present in both lung bases, greater on the right most compatible with bibasilar p neumonia. Small right pleural effusion is seen. No concerning bony finding. In the upper abdomen a liver cyst is noted. There is also a vague 2.6 cm rounded low-density lesion near the pancreatic tail/ hepatic hilum, incompletely assessed. IMPRESSION: No evidence of pulmonary thromboembolism. Bibasilar pneumonia pattern is seen with small right pleural effusion. 2.6 cm low-density structure seen in the upper abdomen left upper quadrant. Followup nonemergent cont rast-enhanced CT abdomen and pelvis would be recommended for full assessment.
[2018-02-11] MEDS ORDERED: NA CHLORIDE 0.9% 1,000 ML ONE (11:47)
[2018-02-11] MEDS ORDERED: CEFTRIAXONE/SWI 1gm 1 GM/10 ML SYR ONE (12:40)
[2018-02-11] MEDS ORDERED: AZITHROMYCIN 500 MG/250 ML BAG ONE (12:41)
--- NOTE | 2018-02-11 13:10 | ER ---
Nurse's Notes [facility] Name: Shane Frank Age: 72 yrs Sex: Male : 1945 Arrival Date: 02/11/2018 Time: 09:45 Bed 8 Private MD: Diagnosis: Bibasilar pneumonia;Hypoxemia;Dyspnea, unspecified Presentation: 02/11 09:54 Presenting complaint: Patient states: He has had sinus drainage and been coughing a aj1 lot, last night he coughed and felt a sharp pain in his right ribs. Reports that he has fractured his ribs before and this feels the same. Denies fever. Reports pain on inspiration that makes it difficult for him to take a deep breath. Transition of care: patient was not received from another setting of care. Onset of symptoms was February 10, 2018. Risk Assessment: Do you want to hurt yourself or someone else? Patient reports no desire to harm self or others. Initial Sepsis Screen: Does the patient meet any 2 criteria? HR > 90 bpm. No. Patient's initial sepsis screen is negative. Does the patient have a suspected source of infection? Yes: Dysuria/Frequency/Urgency/UTI. Care prior to arrival: None. 09:54 Method Of Arrival: Wheelchair aj1 09:54 Acuity: SURESH 3 aj1 10:44 Acuity: SURESH 2 ph Triage Assessment: 10:01 General: Appears in no apparent distress. uncomfortable, Behavior is calm, cooperative, aj1 appropriate for age. Pain: Pain currently is 8 out of 10 on a pain scale. Neuro: Level of Consciousness is awake, alert, obeys commands. Cardiovascular: Patient's skin is warm and dry. Respiratory: Airway is patent Respiratory effort is even, unlabored, Respiratory pattern is regular, symmetrical. Historical: - Allergies: 10:01 No Known Allergies; aj1 - PMHx: 10:01 Hypertension; frequent sinus infections; TIA; aj1 - PSHx: 10:01 Knee surgery; hip surgery; rotator cuff repair; aj1 - Immunization history:: Flu vaccine is not up to date. - Social history:: Smoking status: Patient/guardian denies using tobacco. - Ebola Screening: : Patient denies travel to an Ebola-affected area in the 21 days before illness onset. - Family history:: not pertinent. - Hospitalizations: : The patient was recently seen at [facility]. Screenin:39 Abuse screen: Denies threats or abuse. Denies injuries from another. Nutritional ph screening: No deficits noted. Tuberculosis screening: No symptoms or risk factors identified. Fall Risk None identified. Assessment: 10:39 General: Appears in no apparent distress. uncomfortable, slender, well groomed, ph Behavior is calm, cooperative, appropriate for age. Pain: Complains of pain in right lateral anterior chest. Neuro: Level of Consciousness is awake, alert, obeys commands, Oriented to person, place, time, situation, Denies weakness dizziness, numbness headache. Cardiovascular: Reports chest pain, shortness of breath, Denies nausea, palpitations, vomiting, Capillary refill < 3 seconds in bilateral fingers Patient's skin is warm and dry. Rhythm is sinus tachycardia Chest pain is located in right anterior chest wall radiates R rib area is aggravated by breathing. Respiratory: Reports shortness of breath at rest cough that is productive, pain with cough pain with respiration Airway is patent Respiratory effort is even, unlabored, Respiratory pattern is symmetrical, tachypnea. GI: No signs and/or symptoms were reported involving the gastrointestinal system. Patient currently denies abdominal pain, diarrhea, nausea, vomiting. : Denies burning with urination, urinary frequency. Derm: Skin is intact, is healthy with good turgor, Skin is pink, warm \T\ dry. Musculoskeletal: Circulation, motion, and sensation intact. Range of motion: intact in all extremities, Reports pain in low back area Reports hx of low back pain. 11:30 Reassessment: Patient appears in no apparent distress at this time. Patient and/or ph family updated on plan of care and expected duration. Pain level reassessed. Patient is alert, oriented x 3, equal unlabored respirations, skin warm/dry/pink. Pt resting quietly, awaiting CT scan, at bedside. 12:50 Reassessment: Patient appears in no apparent distress at this time. Patient and/or ph family updated on plan of care and expected duration. Pain level reassessed. Patient is alert, oriented x 3, equal unlabored respirations, skin warm/dry/pink. Pt resting quietly, reports that back pain has improved after PO pain medication, awaiting room assignment, at bedside. 13:36 Reassessment: Patient appears in no apparent distress at this time. Patient and/or ph family updated on plan of care and expected duration. Pain level reassessed. Patient is alert, oriented x 3, equal unlabored respirations, skin warm/dry/pink. Pt sitting up at bedside, drinking milk shake, tolerating well, at bedside, awaiting room assignment. 14:40 Reassessment: Patient appears in no apparent distress at this time. Patient and/or ph family updated on plan of care and expected duration. Pain level reassessed. Patient is alert, oriented x 3, equal unlabored respirations, skin warm/dry/pink. Report called to Re RN, pt waiting to be taken to inpatient room. Vital Signs: 10:01 BP 111 / 77; Pulse 122; Resp 20; Temp 98.0(TE); Pulse Ox 91% on R/A; Weight 96.62 kg aj1 (R); Height 5 ft. 10 in. (177.80 cm); 10:45 BP 123 / 91; Pulse 115; Resp 28; Pulse Ox 96% on 2 lpm NC; ph 11:33 BP 125 / 85; Pulse 119; Resp 26; Pulse Ox 96% on 2 lpm NC; jb1 12:51 BP 136 / 91; Pulse 106; Resp 26; Pulse Ox 96% on 2 lpm NC; ph 13:37 BP 137 / 86; Pulse 113; Resp 26; Temp 98.9(O); Pulse Ox 96% on 2 lpm NC; ph 14:40 BP 124 / 74; Pulse 114; Resp 26; Temp 98.9; Pulse Ox 96% on 2 lpm NC; ph 10:01 Body Mass Index 30.56 (96.62 kg, 177.80 cm) aj1 Vitals: 10:45 Cardiac Rhythm Assessment Sinus tach. ph ED Course: 09:45 Patient arrived in ED. as 09:59 Triage completed. aj1 10:01 Arm band placed on Patient placed in an exam room. aj1 10:05 Anne Cortez, JUAN is Primary Nurse. ph 10:08 Kwame Hawthorne MD is Attending Physician. rn 10:28 EKG done, by solder technician. reviewed by Kwame Hawthorne MD. tc 10:30 Initial lab(s) drawn, by me, sent to lab. First set of blood cultures drawn by me. ph Inserted saline lock: 20 gauge in right antecubital area, using aseptic technique. 10:38 Oxygen administration via nasal cannula \T\ 2L/min. ph 10:44 Patient has correct armband on for positive identification. Placed in gown. Bed in low ph position. Call light in reach. Side rails up X2. lunchroom monitor on. Pulse ox on. NIBP on. Warm blanket given. Pillow given. 10:45 Radiology exam delayed due to lab results not completed at this time. (BUN/Creatinine). jg6 10:47 X-ray completed. Portable x-ray completed in exam room. Patient tolerated procedure sw well. 10:49 XRAY CXR (1 view) In Process Unspecified. EDMS 11:25 CT completed. Patient tolerated procedure well. Patient moved to CT via wheelchair. sj Patient moved back from CT. 11:30 CT Chest For PE Angio In Process Unspecified. EDMS 13:09 Servando Conway DO is Hospitalizing Provider. rn 14:41 No provider procedures requiring assistance completed. Patient admitted, IV remains in ph place. Administered Medications: 11:00 Drug: Xopenex 1.25 mg Route: Inhalation; ph 11:30 Follow up: Response: No adverse reaction ph 11:00 Drug: [place] 10 mg-325 mg 1 tabs Route: PO; ph 12:30 Follow up: Response: No adverse reaction; Pain is decreased ph 11:02 Drug: NS 0.9% 500 ml Route: IV; Rate: bolus; Site: right antecubital; ph 11:55 Follow up: Response: No adverse reaction; IV Status: Completed infusion ph 12:45 Drug: NS 0.9% 500 ml Route: IV; Rate: bolus; Site: right antecubital; ph 13:30 Follow up: Response: No adverse reaction; IV Status: Completed infusion ph 12:45 Drug: Rocephin - (cefTRIAXone) 1 grams Route: IVPB; Infused Over: 30 mins; Site: right ph antecubital; 13:15 Follow up: Response: No adverse reaction; IV Status: Completed infusion ph 12:49 Drug: Zithromax 500 mg Route: IVPB; Infused Over: 1 hrs; Site: right antecubital; ph 14:42 Follow up: Response: No adverse reaction; IV Status: Completed infusion ph Outcome: 13:10 Decision to Hospitalize by Provider. rn 14:41 Admitted to [facility] accompanied by terrell, family with patient, via wheelchair, room 410, with chart, Report called to JUAN Grimaldo 14:41 Condition: stable 14:41 Instructed on the need for admit. 14:53 Patient left the ED. ph Signatures: Dispatcher [employer] EDDewayne Johnson1 Amaya Rice RN RN aj1 Stewart, Marla Briones, Kwame Hirsch MD MD rn Callis, Tiffany, patient assessment coordinator EKG [facility] Anne Cortez RN RN Des, Onelia Galarza
--- NOTE | 2018-02-11 13:10 | EDPHYS ---
Physician Documentation [facility] Name: Shane Frank Age: 72 yrs Sex: Male : 1945 Arrival Date: 02/11/2018 Time: 09:45 Bed 8 Private MD: ED Physician Kwame Hawthorne HPI: 02/11 10:46 This 72 yrs old Male presents to ER via Wheelchair with complaints of Rib rn Pain. 10:46 The patient or guardian reports chest pain that is located primarily in the chest rn diffusely. Onset: yesterday. The pain does not radiate. Associated signs and symptoms: Pertinent positives: cough, palpitations, shortness of breath, Pertinent negatives: syncope, vomiting. The chest pain is described as sharp, stabbing. Duration: The patient or guardian reports multiple episodes, that are intermittent. Modifying factors: The symptoms are alleviated by nothing. the symptoms are aggravated by cough, deep breath. Severity of pain: At its worst the pain was moderate in the emergency department the pain is unchanged. The patient has experienced a previous episode. Reports admitted for stroke w/u, was negative, sent home, has had chronic cough for months, told had sinusitis, given abx to go home with, saw pcp and felt ok, last night coughed, began having sharp/stabbing chest pain, diffuse, worse on right side, pain worse with breathing and cough. NO hx of dvt/PE. no Fever. . Historical: - Allergies: 10:01 No Known Allergies; aj1 - PMHx: 10:01 Hypertension; frequent sinus infections; TIA; aj1 - PSHx: 10:01 Knee surgery; hip surgery; rotator cuff repair; aj1 - Immunization history:: Flu vaccine is not up to date. - Social history:: Smoking status: Patient/guardian denies using tobacco. - Ebola Screening: : Patient denies travel to an Ebola-affected area in the 21 days before illness onset. - Family history:: not pertinent. - Hospitalizations: : The patient was recently seen at [facility]. ROS: 10:46 Constitutional: Negative for fever, chills, and weight loss, Eyes: Negative for injury, rn pain, redness, and discharge, Neck: Negative for injury, pain, and swelling, Cardiovascular: + chest pain and palpitations Respiratory: + sob/cough/pleurisy Abdomen/GI: soft, non-tender MS/Extremity: Negative for injury and deformity, Skin: Negative for injury, rash, and discoloration, Neuro: Negative for headache, weakness, numbness, tingling, and seizure. Exam: 10:46 Constitutional: This is a well developed, well nourished patient who is awake, alert, rn appears sob and tachypneic Head/Face: Normocephalic, atraumatic. Eyes: Pupils equal round and reactive to light, extra-ocular motions intact. Lids and lashes normal. Conjunctiva and sclera are non-icteric and not injected. Cornea within normal limits. Periorbital areas with no swelling, redness, or edema. Cardiovascular: tachycardic, reg, no murmur Respiratory: diminished breath sounds bilaterally, + tachypnea, no retractions, speaking 4-5 word sentences Abdomen/GI: soft, non-tender MS/ Extremity: Pulses equal, no cyanosis. Neurovascular intact. Full, normal range of motion. Equal circumference. Neuro: Awake and alert, GCS 15, oriented to person, place, time, and situation. Cranial nerves II-XII grossly intact. Motor strength 5/5 in all extremities. Sensory grossly intact. Vital Signs: 10:01 BP 111 / 77; Pulse 122; Resp 20; Temp 98.0(TE); Pulse Ox 91% on R/A; Weight 96.62 kg aj (R); Height 5 ft. 10 in. (177.80 cm); 10:45 BP 123 / 91; Pulse 115; Resp 28; Pulse Ox 96% on 2 lpm NC; ph 11:33 BP 125 / 85; Pulse 119; Resp 26; Pulse Ox 96% on 2 lpm NC; jb1 12:51 BP 136 / 91; Pulse 106; Resp 26; Pulse Ox 96% on 2 lpm NC; ph 13:37 BP 137 / 86; Pulse 113; Resp 26; Temp 98.9(O); Pulse Ox 96% on 2 lpm NC; ph 14:40 BP 124 / 74; Pulse 114; Resp 26; Temp 98.9; Pulse Ox 96% on 2 lpm NC; ph 10:01 Body Mass Index 30.56 (96.62 kg, 177.80 cm) [facility] MDM: 10:08 Patient medically screened. rn 12:51 Differential diagnosis: acute pericarditis, chest wall pain, pericarditis, pleurisy, rn pneumonia, pneumothorax, pulmonary embolus. Data reviewed: vital signs, nurses notes, lab test result(s), EKG, radiologic studies, CT scan, plain films, and as a result, I will admit patient. Counseling: I had a detailed discussion with the patient and/or guardian regarding: the historical points, exam findings, and any diagnostic results supporting the discharge/admit diagnosis, lab results, radiology results, the need for further work-up and treatment in the hospital. Response to treatment: the patient's symptoms have markedly improved after treatment, and as a result, I will admit patient. Admission orders: after a detailed discussion of the patient's condition and case, the admit orders are written by me. 12:51 ED course: Will admit to Dr. Conway for bilateral pneumonia, hypoxia, neg PE protocol. .rn 02/11 10:23 Order name: Blood Culture Adult (2) rn 02/11 10:23 Order name: BMP; Complete Time: 11:23 rn 02/11 10:23 Order name: CBC with Diff; Complete Time: 11:23 rn 02/11 10:23 Order name: NT PRO-BNP; Complete Time: 11:23 rn 02/11 10:23 Order name: PT-INR; Complete Time: 11:23 rn 02/11 10:23 Order name: Ptt, Activated; Complete Time: 11:23 rn 02/11 10:23 Order name: XRAY CXR (1 view); Complete Time: 11:23 rn 02/11 10:23 Order name: Troponin (emerg Dept Use Only); Complete Time: 11:23 rn 02/11 10:23 Order name: Procalcitonin; Complete Time: 11:23 rn 02/11 10:23 Order name: Lactate; Complete Time: 11:40 rn 02/11 10:23 Order name: CT Chest For PE Angio; Complete Time: 11:49 rn 02/11 13:37 Order name: Sputum Culture EDWI 02/11 10:23 Order name: EKG; Complete Time: 10:23 rn 02/11 10:23 Order name: Cardiac monitoring; Complete Time: 10:37 rn 02/11 10:23 Order name: EKG - Nurse/Tech; Complete Time: 10:37 rn 02/11 10:23 Order name: IV Saline Lock; Complete Time: 10:37 rn 02/11 10:23 Order name: Labs collected and sent; Complete Time: 10:37 rn 02/11 10:23 Order name: O2 Per Protocol; Complete Time: 10:37 rn 02/11 10:23 Order name: O2 Sat Monitoring; Complete Time: 10:37 rn 02/11 13:37 Order name: Respiratory Therapy Consult EDMS 02/11 13:37 Order name: Heart Healthy EDMS Administered Medications: 11:00 Drug: Xopenex 1.25 mg Route: Inhalation; ph 11:30 Follow up: Response: No adverse reaction ph 11:00 Drug: [place] 10 mg-325 mg 1 tabs Route: PO; ph 12:30 Follow up: Response: No adverse reaction; Pain is decreased ph 11:02 Drug: NS 0.9% 500 ml Route: IV; Rate: bolus; Site: right antecubital; ph 11:55 Follow up: Response: No adverse reaction; IV Status: Completed infusion ph 12:45 Drug: NS 0.9% 500 ml Route: IV; Rate: bolus; Site: right antecubital; ph 13:30 Follow up: Response: No adverse reaction; IV Status: Completed infusion ph 12:45 Drug: Rocephin - (cefTRIAXone) 1 grams Route: IVPB; Infused Over: 30 mins; Site: right ph antecubital; 13:15 Follow up: Response: No adverse reaction; IV Status: Completed infusion ph 12:49 Drug: Zithromax 500 mg Route: IVPB; Infused Over: 1 hrs; Site: right antecubital; ph 14:42 Follow up: Response: No adverse reaction; IV Status: Completed infusion ph Disposition: 02/11/18 13:10 Hospitalization ordered by Servando Conway for Inpatient Admission. Preliminary diagnosis are Bibasilar pneumonia, Hypoxemia, Dyspnea, unspecified. - Bed requested for Telemetry/MedSurg (Inpatient). - Status is Inpatient Admission. ph - Condition is Stable. - Problem is new. - Symptoms have improved. UTI on Admission? No Signatures: Dispatcher [employer] EDWI Amaya Rice RN RN aj1 Kwame Hawthorne MD MD rn Hall, Patricia, RN RN Bell, Cari eb Corrections: (The following items were deleted from the chart) 13:44 13:37 Blood Culture ordered. EDMS EDMS 14:27 13:10 Hospitalization Ordered by Servando Conway DO for Inpatient Admission. Preliminary eb diagnosis is Bibasilar pneumonia; Hypoxemia; Dyspnea, unspecified. Bed requested for Telemetry/MedSurg (Inpatient). Status is Inpatient Admission. Condition is Stable. Problem is new. Symptoms have improved. UTI on Admission? No. rn 14:53 14:27 02/11/2018 13:10 Hospitalization Ordered by Servando Conway DO for Inpatient ph Admission. Preliminary diagnosis is Bibasilar pneumonia; Hypoxemia; Dyspnea, unspecified. Bed requested for Telemetry/MedSurg (Inpatient). Status is Inpatient Admission. Condition is Stable. Problem is new. Symptoms have improved. UTI on Admission? No. eb
[2018-02-11] MEDS ORDERED: BENZONATATE 100 MG CAP PO PRN (13:26)
[2018-02-11] MEDS ORDERED: ONDANSETRON 4 MG/2 ML VIAL IV PRN (13:26)
--- NOTE | 2018-02-11 13:43 | P.HP ---
Certification for Inpatient Patient admitted to: Inpatient With expected LOS: >2 Midnights Patient will require the following post-hospital care: None Practitioner: I am a practitioner with admitting privileges, knowledge of patient current condition, hospital course, and medical plan of care. Services: Services provided to patient in accordance with Admission requirements found in Title 42 Section 412.3 of the Code of Federal Regulations Patient History Date of Service: 02/11/18 Primary Care Provider: JARET Blanc Reason for admission: Shortness of breath History of Present Illness: 72-year-old male presented to the emergency room with shortness of breath. Patient was recently hospitalized on 02/07/2018 through 02/08/2018 for confusion secondary to TIA. This resolved. Patient was discharged appropriately. Since that time patient had reported increasing cough and congestion. He had some shortness of breath today. Mild fever noted at home. Patient came to the ER for further evaluation. In the ER patient evaluated. Patient denied any significant chest pain, nausea , vomiting. Patient thought that he may have broke a rib. White count 16.5, hemoglobin 15. Sodium 137 com potassium 3.7. BUN of 21, creatinine 1.0 with a GFR of 74. Blood sugar 97. Troponin less than 0.02. Pro calcitonin elevated at 0.84. BNP 243. Chest x-ray showed possible atelectasis. CT scan of the chest revealed no pulmonary embolism. Bibasilar pneumonia identified with small pleural effusion on the right side. 2.6 cm upper left abdominal structure noted. Patient was stabilized in the emergency room. Initial heart rate was around 130s. Oxygen saturation is a 91% on room air. Respiratory slightly elevated. Patient given IV fluids in the emergency room. Patient admitted for treatment. When I saw the patient ER, he appeared comfortable. Increased cough and congestion noted. Allergies No Known Allergies Allergy (Verified 05/25/17 10:49) Home medications list reviewed: Yes Home Medications: Ascorbic Acid [Vitamin C*] 500 mg PO DAILY 05/25/17 Aspirin [Aspirin EC 81 MG] 81 mg PO DAILY 05/25/17 Cholecalciferol (Vitamin D3) [Vitamin D 5,000 IU Cap*] 5,000 unit PO DAILY 05/25 Fish Oil/Dha/Epa [Fish Oil 1,200 mg Fish Oil] 1 each PO DAILY 05/25/17 Topiramate [Topamax*] 20 mg PO BID 05/25/17 Vit A/Vit C/Vit E/Zinc/Copper [Icaps Areds Formula Dr Tablet] 1 each PO DAILY Amox/Clavulanate [Augmentin 500-125 mg Tab*] 500 mg PO BID #14 tab 02/08/18 Clopidogrel Bisulfate [Plavix*] 75 mg PO DAILY #30 tablet 02/08/18 Diphenox/Atropine [Lomotil*] 1 tab PO BID 02/08/18 Fluticasone [Flonase 50MCG Nasal [place]*] 1 sprays SONAL BID #1 btl 02/08/18 Folic Acid 1 mg PO DAILY #90 tablet 02/08/18 Lisinopril [Prinivil*] 5 mg PO DAILY #30 tab 02/08/18 - Past Medical/Surgical History Diabetic: No -: Chronic sinusitis -: Hypertension -: TIA -: Skin cancer -: Migraine headaches -: Obstructive sleep apnea on CPAP -: Obesity -: Sinus surgery -: maria isabel knee replacement -: maria isabel hip replacement -: maria isabel cataract removal -: back sx -: wrist repair -: rotator cuff sx -: skin ca removal Psychosocial/ Personal History: Patient is - Family History Family History: Reviewed- Non-Contributory - Social History Smoking Status: Never smoker Alcohol use: Yes CD- Drugs: No Caffeine use: Yes Place of Residence: Home Review of Systems General: Fever, Chills, As per HPI Eyes: Unremarkable ENT: Nose Congestion, As per HPI Respiratory: Cough, Shortness of Breath, As per HPI Cardiovascular: Unremarkable Gastrointestinal: Unremarkable Genitourinary: Unremarkable Musculoskeletal: Unremarkable Integumentary: Unremarkable Neurological: Unremarkable Lymphatics: Unremarkable Physical Examination - Physical Exam General: Alert, In no apparent distress, Oriented x3, Cooperative HEENT: Atraumatic, Mucous membr. moist/pink Neck: Supple Respiratory: Crackles/rales (Slight crackles to the bases) Cardiovascular: Normal pulses, Regular rate/rhythm Gastrointestinal: Normal bowel sounds, Soft and benign, No tenderness, No masses , No rebound, No guarding Musculoskeletal: No erythema, No tenderness, No warmth Integumentary: No tenderness/swelling, No erythema, No warmth, No cyanosis Neurological: Normal speech, Normal strength at 5/5 x4 extr, Normal tone, Normal affect Other Physical/Emotional Findings: Previous hospitalization records reviewed. Recent echocardiogram unremarkable. MRI unremarkable. Doppler negative. - Studies Laboratory Data (last 24 hrs) 02/11/18 10:30: PT 16.4 H, INR 1.39, APTT 30.4 02/11/18 10:30: WBC 16.5 H D, Hgb 15.5, Hct 45.6, Plt Count 462 H 02/11/18 10:30: Sodium 137, Potassium 3.7, BUN 21 H, Creatinine 1.00, Glucose 97 Assessment and Plan - Plan Impression: Shortness of breath, cough with elevated pro calcitonin secondary to by basilar pneumonia with small right pleural effusion Abnormal CT scan shows 2.6 cm upper left abdominal structure History TIA Hypertension Migraine headaches Chronic sinusitis Obstructive sleep apnea on CPAP Obesity Plan: Shortness of breath, cough with elevated pro calcitonin secondary to by basilar pneumonia with small right pleural effusion: Patient admitted for treatment. Patient had been taking Augmentin. Will discontinue. Will start IV Levaquin. Will provide medication for cough and congestion. Will recheck lab and chest x- ray in the morning. Will maintain sats above 90%. Will also start IV fluids. Will reassess tomorrow. Will provide DVT prophylaxis. Will provide incentive spirometer. Abnormal CT scan shows 2.6 cm upper left abdominal structure: Will order abdominal ultrasound to further assess. History TIA: Recent hospitalization showed negative MRI, MRA and carotid Doppler. Recent echocardiogram unremarkable as well. Will continue with aspirin 81 mg daily and Plavix 75 mg daily. Will also continue with folic acid. Patient to follow up within neurology as an outpatient. Hypertension: Will continue with low-dose lisinopril. Will monitor and adjust appropriately. Chronic sinusitis: Will continue with Flonase. Patient seen by ENT as an outpatient. Migraine headaches: Will continue with Topamax 25 mg twice daily. Patient will follow up with neurology as an outpatient Obstructive sleep apnea on CPAP: Will continue with his CPAP at night Obesity: Will provide lifestyle modification education. Discharge Plan: Home Plan to discharge in: 72 Hours - Advance Directives Does patient have a Living Will: Yes Does patient have a Durable POA for Healthcare: Yes - Code Status/Comfort Care Code Status Assessed: Yes (Patient full code) Time Spent Managing Pts Care (In Minutes): 55
[2018-02-11] MEDS: ACETAMINOPHEN 500 MG TAB PO PRN ×2 (15:36→22:24)
[2018-02-11] MEDS: NA CHLORIDE 0.9% 1,000 ML IV SCH (15:36)
[2018-02-11] MEDS: ENOXAPARIN 40 MG/0.4 ML SQ SCH (16:50)
[2018-02-11] MEDS: Levofloxacin500mg IV 500 MG/100 ML BAG IV SCH (16:50)
[2018-02-11] MEDS: TRAMADOL HCL 50 MG TAB PO PRN (19:27)
[2018-02-11] MEDS: TOPIRAMATE 25 MG TAB PO SCH (20:12)
[2018-02-11 20:22] VITALS: BMI 30.5
[2018-02-11] MEDS: ALBUTEROL 2.5 MG/3 ML NEB SOL NEB PRN (20:45)
[2018-02-11] MEDS: IPRATROPIUM BROM 0.5MG/2.5ML NEB PRN (20:45)
[2018-02-11] MEDS ORDERED: FLUTICASONE 50MCG NASAL SPRAY NAS SCH (21:00)
[2018-02-11] MEDS ORDERED: LISINOPRIL 5 MG TAB PO SCH (21:00)
--- NOTE | 2018-02-11 21:59 | RAD REPORT ---
EXAM DESCRIPTION: US - Abdomen Exam Complete - 02/11/2018 9:45 pm CLINICAL HISTORY: Abdominal pain. follow up 2.6 cm ULQ structure COMPARISON: Chest For Pe Angio dated 02/11/2018 FINDINGS: Mild fatty liver is noted. 3.7 cm liver cyst is identified, benign appearance. No intrahep atic biliary dilatation. The gallbladder demonstrates no gallstones, pericholecystic fluid or gallbladder wall thickening. Co mmon bile duct is normal in caliber measuring 5 millimeters. Unfortunately, the patient became short of breath during the examination and refused further imaging. Thus, the spleen, kidneys, aorta, pancreas and IVC could not be image or assessed. IMPRESSION: Mild fatty liver with benign appearing liver cysts noted. Negative gallbladder/biliary tree findings. Incomplete assessment of the spleen, kidneys, aorta, pancreas and IVC due to patient's clinical statu s as detailed above.
[2018-02-12] MEDS: NA CHLORIDE 0.9% 1,000 ML IV SCH ×4 (00:26→22:12)
[2018-02-12] MEDS: TRAMADOL HCL 50 MG TAB PO PRN ×3 (03:51→20:09)
[2018-02-12] MEDS: ALBUTEROL 2.5 MG/3 ML NEB SOL NEB PRN (04:21)
[2018-02-12] MEDS: IPRATROPIUM BROM 0.5MG/2.5ML NEB PRN (04:21)
[2018-02-12 05:27] LABS: Urine Appearance CLEAR; Urine Bilirubin NEGATIVE (NEG); Urine Blood TRACE (NEG); Urine Color YELLOW; Urine Glucose NEGATIVE (NEG); Urine Protein 1+ (NEG); Urine Specific Gravity >=1.030 (1.005-1.030); Urine Urobilinogen 0.2 mg/dL (0.2-1.0)
[2018-02-12 05:47] LABS: Urine Microscopic Reflex ORDER UMIC
[2018-02-12 06:11] LABS: Urine Bacteria <20 /HPF (NONE SEEN); Urine Culture Reflex Order NOT NEEDED
[2018-02-12 06:15] LABS: BUN Blood Urea Nitrogen 16 mg/dL (7-18); Bicarbonate 20 mmol/L (21-32); Glucose Level 99 mg/dL (74-106); Magnesium 1.9 mg/dL (1.8-2.4); Potassium 3.8 mmol/L (3.5-5.1); Sodium Level 139 mmol/L (136-145)
[2018-02-12 06:19] LABS: Absolute Monocytes 1.4 K/uL (0.1-1.3); Absolute Neutrophil 13.4 K/uL (1.8-8.0); Basophils % 0.2 % (0-1.3); Eosinophils % 1.1 % (0-4.4); Hematocrit 45.6 % (39.6-49.0); Lymphocytes % 6.2 % (15.3-44.8); MCH 30.2 pg (27.0-35.0); MCV 89.9 fL (80-100); MPV 7.5 fL (7.6-11.3); Monocytes % 8.8 % (3.3-12.3); RBC Red Blood Cell Count 5.07 M/uL (4.33-5.43)
[2018-02-12] MEDS: PANTOPRAZOLE 40MG TABLET PO SCH (06:32)
--- NOTE | 2018-02-12 07:52 | EKG ---
Test Date: 2018-02-11 Test Time: 10:23:22 [employer]: [facility] MEASUREMENT RESULTS: Intervals: Rate: 115 AK: 178 QRSD: 96 QT: 336 QTc: 464 Shirley: P: 30 AK: 178 QRS: -23 T: 33 INTERPRETIVE STATEMENTS: Sinus tachycardia Otherwise normal ECG Compared to ECG 02/07/2018 16:45:53 Left-axis deviation no longer present Electronically Signed On 02-12-18 07:49:03 CDT by Hill Padgett
[2018-02-12] MEDS: ACETAMINOPHEN 500 MG TAB PO PRN ×2 (08:32→17:57)
[2018-02-12] MEDS: VIT E PO SCH (09:00)
[2018-02-12] MEDS: COPPER PO SCH (09:00)
[2018-02-12] MEDS: [UNRECOGNIZED DRUG - OTHER] PO SCH (09:00)
[2018-02-12] MEDS: VIT C PO SCH (09:00)
[2018-02-12] MEDS: VIT A PO SCH (09:00)
[2018-02-12] MEDS: ZINC PO SCH (09:00)
[2018-02-12] MEDS: ENOXAPARIN 40 MG/0.4 ML SQ SCH (09:00)
[2018-02-12] MEDS: METOPROLOL TAR 25 MG TAB PO SCH ×2 (09:02→18:05)
[2018-02-12] MEDS: ASPIRIN EC 81 MG TAB PO SCH (09:02)
[2018-02-12] MEDS: DOCOSAHEXANOIC AC/EPA 1000 MG PO SCH (09:03)
[2018-02-12] MEDS: CLOPIDOGREL 75 MG TABLET PO SCH (09:03)
[2018-02-12] MEDS: FOLIC ACID 1 MG TABLET PO SCH (09:03)
[2018-02-12] MEDS: ASCORBIC ACID 500 MG TABLET PO SCH (09:03)
[2018-02-12] MEDS: VITAMIN D 5,000 UNIT CAP PO SCH (09:03)
[2018-02-12] MEDS: TOPIRAMATE 25 MG TAB PO SCH ×2 (09:04→20:09)
--- NOTE | 2018-02-12 09:23 | RAD REPORT ---
EXAM DESCRIPTION: CT - Abdomen W/Wo Contrast - 02/12/2018 8:23 am CLINICAL HISTORY: Abdominal pain COMPARISON: 02/11/2018 cat scan chest TECHNIQUE: Computed axial tomography from the diaphragm to the iliac crest was obtained. 100 cc Isov [id number] administered intravenously. Oral contrast was not given . Unenhanced images were also taken All CT scans are performed using dose optimization technique as appropriate and may include automated exposure control or mA/KV adjustment according to patient size. FINDINGS: . Hepatic cysts are present. Largest measures 3.5 millimeters. Gallbladder is mildly distended. Spleen, pancreas and adrenals appear unremarkable. Bilateral renal cysts are present. A 3.6 centimeters cyst extends off of the upper pole left kidney c orresponding to the abnormality seen on the CT chest. Small nonobstructing renal calculi are seen No ascites is noted. Postsurgical changes involve the lumbar spine. Visualized bowel caliber and wall thickness is normal IMPRESSION: Mild gallbladder distention Small nonobstructing renal calculi
--- NOTE | 2018-02-12 09:37 | RAD REPORT ---
EXAM DESCRIPTION: Sondra Pa And Lat (2 Views)02/12/2018 7:32 am CLINICAL HISTORY: Cough COMPARISON: 02/11/2018 FINDINGS: Right lower lobe consolidation with small pleural effusion is unchanged. Mild left basilar opacities are stayed IMPRESSION: No change since the prior exam
--- NOTE | 2018-02-12 10:09 | P.PN ---
Subjective Date of Service: 02/12/18 Primary Care Provider: JARET Blanc Chief Complaint: Shortness of breath Subjective: Improving (Patient feels improved.) Physical Examination - Vital Signs Temperature: 98.5 F Blood Pressure: 138/89 Pulse: 111 Respirations: 20 Pulse Ox (%): 90 - Physical Exam General: Alert, In no apparent distress, Oriented x3, Cooperative HEENT: Atraumatic Neck: Supple Respiratory: Crackles/rales (Crackles to the right base but improved) Cardiovascular: Abnormal pulses (Mild sinus tachycardia) Gastrointestinal: Normal bowel sounds, Soft and benign, Non-distended, No rebound, No guarding, Tenderness (Minimal pain to the left upper quadrant) Musculoskeletal: No erythema, No tenderness, No warmth Integumentary: No tenderness/swelling, No erythema, No warmth, No cyanosis Neurological: Normal speech, Normal strength at 5/5 x4 extr, Normal tone, Normal affect Other Physical/Emotional Findings: Previous hospitalization records reviewed. Recent echocardiogram unremarkable. MRI unremarkable. Doppler negative. - Studies Laboratory Data (last 24 hrs) 02/11/18 10:30: PT 16.4 H, INR 1.39, APTT 30.4 02/11/18 10:30: WBC 16.5 H D, Hgb 15.5, Hct 45.6, Plt Count 462 H 02/11/18 10:30: Sodium 137, Potassium 3.7, BUN 21 H, Creatinine 1.00, Glucose 97 Medications List Reviewed: Yes Assessment & Plan Discharge Plan: Home Plan to discharge in: 48 Hours Physician Review Additional Text: Impression: Shortness of breath, cough with elevated pro calcitonin secondary to basilar pneumonia with small right pleural effusion Abnormal CT scan shows 2.6 cm upper left pole renal cyst with non obstructing renal calculi History of TIA, recent hospitalization Hypertension Migraine headaches Chronic sinusitis Obstructive sleep apnea on CPAP Hepatic cysts, largest around 3.5 cm Obesity-BMI 30.6 Plan: Shortness of breath, cough with elevated pro calcitonin secondary to by basilar pneumonia with small right pleural effusion: Patient continues to improve. Will continue to wean off oxygen. Currently on IV Levaquin. Chest x-ray shows no significant change. Continue DVT prophylaxis. Will provide incentive spirometer. Will consult pulmonology to further evaluate. Blood and sputum cultures obtained. Will have physical therapy ambulate once improved. Abnormal CT scan shows 2.6 cm upper left pole renal cyst with non obstructing renal calculi: Patient reports mild pain to the left upper quadrant. Will discuss with patient. This can be further addressed as an outpatient with Urology. History of TIA, recent hospitalization: Currently stable. Will continue with aspirin and Plavix. Recent hospitalization showed negative MRI brain, MRA brain and neck and carotid Doppler. Echocardiogram also unremarkable. Hypertension: Will start metoprolol. Will discontinue lisinopril for now. Will continue to monitor and address appropriately. . Chronic sinusitis: Will continue with Flonase. Patient seen by ENT as an outpatient. Migraine headaches: Will continue with Topamax 25 mg twice daily. Patient will follow up with neurology as an outpatient Obstructive sleep apnea on CPAP: Will continue with his CPAP at night Obesity: Will provide lifestyle modification education. BMI 30.6 Time Spent Managing Pts Care (In Minutes): 55
[2018-02-12] MEDS ORDERED: NA CHLORIDE 0.9% 1,000 ML IV SCH (11:00)
[2018-02-12] MEDS: Levofloxacin500mg IV 500 MG/100 ML BAG IV SCH (13:29)
[2018-02-13 06:19] LABS: Absolute Lymphocytes (CBC) 0.9 K/uL (0.7-4.9); Absolute Monocytes 1.4 K/uL (0.1-1.3); Absolute Neutrophil 11.7 K/uL (1.8-8.0); Basophils % 0.4 % (0-1.3); Eosinophils % 2.5 % (0-4.4); Hematocrit 40.4 % (39.6-49.0); Lymphocytes % 5.9 % (15.3-44.8); MCH 30.5 pg (27.0-35.0); MCV 90.4 fL (80-100); MPV 7.5 fL (7.6-11.3); RBC Red Blood Cell Count 4.47 M/uL (4.33-5.43)
[2018-02-13 06:36] LABS: BUN Blood Urea Nitrogen 13 mg/dL (7-18); Bicarbonate 21 mmol/L (21-32); Glucose Level 88 mg/dL (74-106); Potassium 3.8 mmol/L (3.5-5.1); Sodium Level 138 mmol/L (136-145)
[2018-02-13] MEDS: METOPROLOL TAR 25 MG TAB PO SCH (06:36)
[2018-02-13] MEDS: NA CHLORIDE 0.9% 1,000 ML IV SCH (07:00)
--- NOTE | 2018-02-13 08:34 | P.CNS ---
Date of Consult: 02/13/18 Reason for Consult: Right-sided pleural effusion possible pneumonia Primary Care Provider: JARET Blanc Chief Complaint: Shortness of breath History of Present Illness: Patient is 72 years of age and previously healthy man apart from multiple orthopedic operation was admitted here for the possible TIA discharge in 2 days later he came back with shortness of breath has some pleuritic chest pain on the right side diagnosed with right lower lobe pneumonia patient had a mild temp elevated white count he is feeling better for prior history of cardiopulmonary problems apart from hypertension which appears to be fairly well controlled Allergies No Known Allergies Allergy (Verified 05/25/17 10:49) Home Medications: Ascorbic Acid [Vitamin C*] 500 mg PO DAILY 05/25/17 Aspirin [Aspirin EC 81 MG] 81 mg PO DAILY 05/25/17 Cholecalciferol (Vitamin D3) [Vitamin D 5,000 IU Cap*] 5,000 unit PO DAILY 05/25 Fish Oil/Dha/Epa [Fish Oil 1,200 mg Fish Oil] 1 each PO DAILY 05/25/17 Topiramate [Topamax*] 20 mg PO BID 05/25/17 Vit A/Vit C/Vit E/Zinc/Copper [Icaps Areds Formula Dr Tablet] 1 each PO DAILY Amox/Clavulanate [Augmentin 500-125 mg Tab*] 500 mg PO BID #14 tab 02/08/18 Clopidogrel Bisulfate [Plavix*] 75 mg PO DAILY #30 tablet 02/08/18 Diphenox/Atropine [Lomotil*] 1 tab PO BID 02/08/18 Fluticasone [Flonase 50MCG Nasal [place]*] 1 sprays SONAL BID #1 btl 02/08/18 Folic Acid 1 mg PO DAILY #90 tablet 02/08/18 Lisinopril [Prinivil*] 5 mg PO DAILY #30 tab 02/08/18 - Past Medical/Surgical History Diabetic: No -: Chronic sinusitis -: Hypertension -: TIA -: Skin cancer -: Migraine headaches -: Obstructive sleep apnea on CPAP -: Obesity -: Sinus surgery -: maria isabel knee replacement -: maria isabel hip replacement -: maria isabel cataract removal -: back sx -: wrist repair -: rotator cuff sx -: skin ca removal Psychosocial/ Personal History: Patient is - Social History Alcohol use: Yes CD- Drugs: No Caffeine use: Yes Place of Residence: Home Review of Systems 10-point ROS is otherwise unremarkable General: Weakness Respiratory: Cough Cardiovascular: Chest Pain Physical Examination Temp Pulse Resp BP Pulse Ox 99.3 F 91 H 20 131/67 91 02/13/18 04:00 02/13/18 04:00 02/13/18 04:00 02/13/18 06:36 02/13/18 04:00 General: Alert, Oriented x3 HEENT: Atraumatic Neck: Supple Respiratory: Rhonchi/gurgles (Rhonchi on the right side with some basilar crackles) Cardiovascular: No edema, Normal S1 S2 Gastrointestinal: Normal bowel sounds, Soft and benign - Problems (1) Pneumonia Current Visit: Yes Status: Acute Plan: Patient is 72 years of age admitted with right lower lobe pneumonia with a small parapneumonic effusion elevated white count pleuritic chest pain slight fever no evidence of thromboembolism patient's white count is declining cultures and negative patient was diagnosed with acute maxillary sinusitis and was discharged home on Augmentin he is 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 levofloxacin increase dose to 7 mg daily room air saturation is satisfactory he feels better can be discharged home follow with me in 2 weeks Kussmaul pleural effusion Dc IV fluids ambulate room-air saturation is satisfactory. Discharge Qualifiers: Pneumonia type: due to unspecified organism
[2018-02-13] MEDS: DOCOSAHEXANOIC AC/EPA 1000 MG PO SCH (08:36)
[2018-02-13] MEDS: FOLIC ACID 1 MG TABLET PO SCH (08:36)
[2018-02-13] MEDS: ASCORBIC ACID 500 MG TABLET PO SCH (08:36)
[2018-02-13] MEDS: VITAMIN D 5,000 UNIT CAP PO SCH (08:36)
[2018-02-13] MEDS: PANTOPRAZOLE 40MG TABLET PO SCH (08:36)
[2018-02-13] MEDS: TOPIRAMATE 25 MG TAB PO SCH (08:36)
[2018-02-13] MEDS: ENOXAPARIN 40 MG/0.4 ML SQ SCH (08:36)
[2018-02-13] MEDS: CLOPIDOGREL 75 MG TABLET PO SCH (08:37)
[2018-02-13] MEDS: ASPIRIN EC 81 MG TAB PO SCH (08:37)
--- NOTE | 2018-02-13 08:41 | P.PN ---
Subjective Date of Service: 02/13/18 Primary Care Provider: JARET Blanc Chief Complaint: Shortness of breath Subjective: Other (Patient continues to improve. Less short of breath noted.) Physical Examination - Vital Signs Temperature: 99.3 F Blood Pressure: 131/67 Pulse: 91 Respirations: 20 Pulse Ox (%): 91 - Physical Exam General: Alert, In no apparent distress, Oriented x3, Cooperative HEENT: Atraumatic Neck: Supple Respiratory: Crackles/rales (Minimal crackles to the right base, better air movement noted) Cardiovascular: Normal pulses, Regular rate/rhythm Gastrointestinal: Normal bowel sounds, Soft and benign, Non-distended, No tenderness, No masses, No rebound, No guarding Musculoskeletal: No erythema, No tenderness, No warmth Integumentary: No tenderness/swelling, No erythema, No warmth, No cyanosis Neurological: Normal speech, Normal strength at 5/5 x4 extr, Normal tone, Normal affect Other Physical/Emotional Findings: Previous hospitalization records reviewed. Recent echocardiogram unremarkable. MRI unremarkable. Doppler negative. - Studies Medications List Reviewed: Yes Assessment & Plan Discharge Plan: Home Plan to discharge in: 24 Hours Physician Review Additional Text: Impression: Shortness of breath, cough with elevated pro calcitonin secondary to basilar pneumonia with small right pleural effusion Abnormal CT scan shows 2.6 cm upper left pole renal cyst with non obstructing renal calculi History of TIA, recent hospitalization Hypertension Migraine headaches Chronic sinusitis Obstructive sleep apnea on CPAP GERD Hepatic cysts, largest around 3.5 cm Obesity-BMI 30.6 Plan: Shortness of breath, cough with elevated pro calcitonin secondary to basilar pneumonia with small right pleural effusion: Patient continues to improve. Will continue to wean off oxygen. Antibiotics adjusted by pulmonology. Recheck chest x-ray today. Continue DVT prophylaxis. Will provide incentive spirometer. Will have physical therapy ambulate today. Anticipate discharge once he is able to get off oxygen. Likely tomorrow Abnormal CT scan shows 2.6 cm upper left pole renal cyst with non obstructing renal calculi: This was discussed in detail with patient. Overall stable. Recommendation for the patient follow up with urology as an outpatient to further address. History of TIA, recent hospitalization: Currently stable. Will continue with aspirin and Plavix. Recent hospitalization showed negative MRI brain, MRA brain and neck and carotid Doppler. Echocardiogram also unremarkable. Hypertension: Medication adjusted. Will continue with metoprolol. Lisinopril discontinued. He seems to be doing better with this medication. Will continue to monitor and address appropriately. Chronic sinusitis: Will continue with Flonase. Patient seen by ENT as an outpatient. Migraine headaches: Will continue with Topamax 25 mg twice daily. Patient will follow up with neurology as an outpatient Obstructive sleep apnea on CPAP: Will continue with his CPAP at night GERD: Will continue with medication Obesity: Will provide lifestyle modification education. BMI 30.6 Hepatics cysts, largest around 3.5 cm: CT reviewed with patient. This can be further addressed by GI as an outpatient. Time Spent Managing Pts Care (In Minutes): 55
[2018-02-13] MEDS: VIT E PO SCH (09:00)
[2018-02-13] MEDS ORDERED: levoFLOXacin 750 MG TAB PO SCH (09:00)
[2018-02-13] MEDS: VIT C PO SCH (09:00)
[2018-02-13] MEDS: VIT A PO SCH (09:00)
[2018-02-13] MEDS: [UNRECOGNIZED DRUG - OTHER] PO SCH (09:00)
[2018-02-13] MEDS: ZINC PO SCH (09:00)
[2018-02-13] MEDS: COPPER PO SCH (09:00)
--- NOTE | 2018-02-13 10:58 | RAD REPORT ---
EXAM DESCRIPTION: RAD - Chest Pa And Lat (2 Views) - 02/13/2018 10:47 am CLINICAL HISTORY: Follow up pneumonia, pleural effusion Chest pain. COMPARISON: Chest Pa And Lat (2 Views) dated 02/12/2018; Chest Single View dated 02/11/2018; Chest Sin gle View dated 02/07/2018 FINDINGS: Bibasilar pulmonary opacities are again noted, worse on the right. Left lung base opacity appears mildly progressive since the comparative study. The heart is mildly prominent size. No displa jaime fractures. IMPRESSION: Bibasilar lung opacities are again noted, mildly progressive on the left since the dale rative radiograph.
[2018-02-13 12:15] VITALS: BP 111/65; TEMP 98.3
--- NOTE | 2018-02-13 16:16 | P.DS ---
Admission Date: 02/11/18 Discharge Date: 02/13/18 Primary Care Provider: JARET Blanc Disposition: ROUTINE DISCHARGE Discharge Condition: GOOD Reason for Admission: Shortness of breath Consultations: Pulmonology-Dr. Ferrer Procedures: CT scan: COMPARISON: No comparisons TECHNIQUE: CT angiogram of the pulmonary arteries was performed with MIP. All CT scans are performed using dose optimization technique as appropriate and may include automated exposure control or mA/KV adjustment according to patient size. FINDINGS: No evidence of pulmonary thromboembolism. No acute aortic finding demonstrated. Airspace opacity is present in both lung bases, greater on the right most compatible with bibasilar pneumonia. Small right pleural effusion is seen. No concerning bony finding. In the upper abdomen a liver cyst is noted. There is also a vague 2.6 cm rounded low-density lesion near the pancreatic tail/ hepatic hilum, incompletely assessed. IMPRESSION: No evidence of pulmonary thromboembolism. Bibasilar pneumonia pattern is seen with small right pleural effusion. 2.6 cm low-density structure seen in the upper abdomen left upper quadrant. Abdominal ultrasound: COMPARISON: Chest For Pe Angio dated 02/11/2018 FINDINGS: Mild fatty liver is noted. 3.7 cm liver cyst is identified, benign appearance. No intrahepatic biliary dilatation. The gallbladder demonstrates no gallstones, pericholecystic fluid or gallbladder wall thickening. Common bile duct is normal in caliber measuring 5 millimeters. Unfortunately, the patient became short of breath during the examination and refused further imaging. Thus, the spleen, kidneys, aorta, pancreas and IVC could not be image or assessed. IMPRESSION: Mild fatty liver with benign appearing liver cysts noted. Negative gallbladder/biliary tree findings. Incomplete assessment of the spleen, kidneys, aorta, pancreas and IVC due to patient's clinical status as detailed above. CT abdomen: COMPARISON: 02/11/2018 cat scan chest TECHNIQUE: Computed axial tomography from the diaphragm to the iliac crest was obtained. 100 cc Isovue-300 administered intravenously. Oral contrast was not given . Unenhanced images were also taken All CT scans are performed using dose optimization technique as appropriate and may include automated exposure control or mA/KV adjustment according to patient size. FINDINGS: . Hepatic cysts are present. Largest measures 3.5 millimeters. Gallbladder is mildly distended. Spleen, pancreas and adrenals appear unremarkable. Bilateral renal cysts are present. A 3.6 centimeters cyst extends off of the upper pole left kidney corresponding to the abnormality seen on the CT chest. Small nonobstructing renal calculi are seen No ascites is noted. Postsurgical changes involve the lumbar spine. Visualized bowel caliber and wall thickness is normal IMPRESSION: Mild gallbladder distention Small nonobstructing renal calculi Medical problem list: Shortness of breath, cough with elevated pro calcitonin secondary to basilar pneumonia with small right pleural effusion Abnormal CT scan shows 3.6 cm upper left pole renal cyst with non obstructing renal calculi History of TIA, recent hospitalization Hypertension Migraine headaches Chronic sinusitis Obstructive sleep apnea on CPAP GERD Hepatic cysts, largest around 3.5 cm Obesity-BMI 30.6 Brief History of Present Illness: 72-year-old male presented to the emergency room with shortness of breath. Patient was recently hospitalized on 02/07/2018 through 02/08/2018 for confusion secondary to TIA. This resolved. Patient was discharged appropriately. Since that time patient had reported increasing cough and congestion. He had some shortness of breath today. Mild fever noted at home. Patient came to the ER for further evaluation. In the ER patient evaluated. Patient denied any significant chest pain, nausea , vomiting. Patient thought that he may have broke a rib. White count 16.5, hemoglobin 15. Sodium 137 com potassium 3.7. BUN of 21, creatinine 1.0 with a GFR of 74. Blood sugar 97. Troponin less than 0.02. Pro calcitonin elevated at 0.84. BNP 243. Chest x-ray showed possible atelectasis. CT scan of the chest revealed no pulmonary embolism. Bibasilar pneumonia identified with small pleural effusion on the right side. 2.6 cm upper left abdominal structure noted. Patient was stabilized in the emergency room. Initial heart rate was around 130s. Oxygen saturation is a 91% on room air. Respiratory slightly elevated. Patient given IV fluids in the emergency room. Patient admitted for treatment. When I saw the patient ER, he appeared comfortable. Increased cough and congestion noted. Hospital Course: Patient presented with shortness of breath, cough with elevated pro calcitonin secondary to basilar pneumonia with small right pleural effusion. Patient was admitted and treated. Patient seen by pulmonology. Patient improved with antibiotic therapy. At discharge patient ambulate. Patient no longer requiring oxygen. Significant improvement noted. At discharge patient will continue with Levaquin 750 mg 1 pill daily for 5 more days. Tessalon Perles 1 pill 3 times a day as needed for cough will be provided. Pro air 2 puffs 3 times a day as needed for shortness of breath will also be provided. Patient will continue with incentive spirometer. Recommendation to recheck chest x-ray in 2-4 weeks to monitor resolution. Recommendation for the patient follow up with pulmonology in 1 week to monitor his progress. CT abdomen shows 2.6 cm upper left pole renal cyst with nonobstructing renal calculi. Recommendations for the patient to follow up with urology as an outpatient to further evaluate and monitor. CT scan also revealed Hepatic cysts, largest measuring 3.5 cm. Recommendation is for the patient to follow up with GI to further evaluate and monitor. Patient recently hospitalized for TIA. Patient stable this time. Medications adjusted. At discharge patient will continue with aspirin 81 mg daily, Plavix 75 mg 1 pill daily and folic acid 1 mg daily. Blood pressure medication lisinopril was discontinued in place of metoprolol. Recommendation for the patient to follow up with neurology as an outpatient to further monitor and address. Patient has hypertension. Medication adjusted. Lisinopril discontinued. Metoprolol was added. At discharge patient will continue with metoprolol 25 mg 1 pill twice daily. Recommendation is to maintain blood pressures less 150/80. Further adjustment can be done by his PCP. Patient has migraine headaches. Patient will continue with Topamax 75 mg 1 pill twice daily. Patient may follow up with neurology as directed. Patient has chronic sinusitis. Patient may continue with Flonase 1 spray per nostril twice daily. Patient may follow up with ENT as an outpatient. Patient has obstructive sleep apnea. Patient will continue with CPAP at night. Recommendation is for the patient follow up with pulmonology as an outpatient to further monitor. Patient has GERD. Patient will continue with Protonix 40 mg 1 pill once daily. Lifestyle modification education provided. Vital Signs/Physical Exam: Temp Pulse Resp BP Pulse Ox 98.3 F 105 H 26 H 111/65 91 02/13/18 12:00 02/13/18 12:00 02/13/18 12:00 02/13/18 12:00 02/13/18 12:00 General: Alert, In no apparent distress, Oriented x3, Cooperative HEENT: Atraumatic Neck: Supple Respiratory: Clear to auscultation bilaterally, Normal air movement Cardiovascular: Normal pulses, Regular rate/rhythm Gastrointestinal: Normal bowel sounds, Soft and benign, Non-distended, No tenderness, No masses, No rebound, No guarding Musculoskeletal: No erythema, No tenderness, No warmth Integumentary: No tenderness/swelling, No erythema, No warmth, No cyanosis Neurological: Normal speech, Normal strength at 5/5 x4 extr, Normal tone, Normal affect Other Physical/Emotional Findings: Previous hospitalization records reviewed. Recent echocardiogram unremarkable. MRI unremarkable. Doppler negative. Laboratory Data at Discharge: WBC 14.4 K/uL (4.3-10.9) H 02/13/18 05:36 Hgb 13.6 g/dL (13.6-17.9) 02/13/18 05:36 Hct 40.4 % (39.6-49.0) 02/13/18 05:36 Plt Count 418 K/uL (152-406) H D 02/13/18 05:36 PT 16.4 SECONDS (9.5-12.5) H 02/11/18 10:30 INR 1.39 02/11/18 10:30 APTT 30.4 SECONDS (24.3-36.9) 02/11/18 10:30 Sodium 138 mmol/L (136-145) 02/13/18 05:36 Potassium 3.8 mmol/L (3.5-5.1) 02/13/18 05:36 BUN 13 mg/dL (7-18) 02/13/18 05:36 Creatinine 0.80 mg/dL (0.55-1.3) 02/13/18 05:36 Glucose 88 mg/dL (74-106) 02/13/18 05:36 Magnesium 2.0 mg/dL (1.8-2.4) 02/13/18 05:36 Home Medications: Ascorbic Acid [Vitamin C*] 500 mg PO DAILY 05/25/17 Aspirin [Aspirin EC 81 MG] 81 mg PO DAILY 05/25/17 Cholecalciferol (Vitamin D3) [Vitamin D 5,000 IU Cap*] 5,000 unit PO DAILY 05/25 Fish Oil/Dha/Epa [Fish Oil 1,200 mg Fish Oil] 1 each PO DAILY 05/25/17 Topiramate [Topamax*] 20 mg PO BID 05/25/17 Vit A/Vit C/Vit E/Zinc/Copper [Icaps Areds Formula Dr Tablet] 1 each PO DAILY Clopidogrel Bisulfate [Plavix*] 75 mg PO DAILY #30 tablet 02/08/18 Diphenox/Atropine [Lomotil*] 1 tab PO BID 02/08/18 Fluticasone [Flonase 50MCG Nasal [place]*] 1 sprays SONAL BID #1 btl 02/08/18 Folic Acid 1 mg PO DAILY #90 tablet 02/08/18 Albuterol Sulfate [Proair Hfa] 8.5 gm IH TID PRN #1 hfa.[email or web address] 02/13/18 Benzonatate [Tessalon Perle*] 200 mg PO TID PRN #15 cap 02/13/18 Metoprolol Tartrate [Lopressor*] 25 mg PO BID 6AM 6PM #60 tab 02/13/18 Pantoprazole [Protonix Tab*] 40 mg PO ACB #30 tab 02/13/18 levoFLOXacin [Levaquin*] 750 mg PO DAILY #5 tab 02/13/18 New Medications: Albuterol Sulfate [Proair Hfa] 8.5 gm IH TID PRN #1 hfa.aer.ad PRN Reason: Shortness Of Breath Benzonatate [Tessalon Perle*] 200 mg PO TID PRN #15 cap PRN Reason: Cough levoFLOXacin [Levaquin*] 750 mg PO DAILY #5 tab Metoprolol Tartrate [Lopressor*] 25 mg PO BID 6AM 6PM #60 tab Pantoprazole [Protonix Tab*] 40 mg PO ACB #30 tab Patient Discharge Instructions: 1. Patient will follow up with his PCP in 1 week to follow up this hospitalization. 2. Patient presented with shortness of breath, cough with elevated pro calcitonin secondary to basilar pneumonia with small right pleural effusion. Patient was admitted and treated. Patient seen by pulmonology. Patient improved with antibiotic therapy. At discharge patient ambulate. Patient no longer requiring oxygen. Significant improvement noted. At discharge patient will continue with Levaquin 750 mg 1 pill daily for 5 more days. Tessalon Perles 1 pill 3 times a day as needed for cough will be provided. Pro air 2 puffs 3 times a day as needed for shortness of breath will also be provided. Patient will continue with incentive spirometer. Recommendation to recheck chest x-ray in 2-4 weeks to monitor resolution. Recommendation for the patient follow up with pulmonology in 1 week to monitor his progress. 3. CT abdomen shows 2.6 cm upper left pole renal cyst with nonobstructing renal calculi. Recommendations for the patient to follow up with urology as an outpatient to further evaluate and monitor. 4. CT scan also revealed Hepatic cysts, largest measuring 3.5 cm. Recommendation is for the patient to follow up with GI to further evaluate and monitor. 5. Patient recently hospitalized for TIA. Patient stable this time. Medications adjusted. At discharge patient will continue with aspirin 81 mg daily, Plavix 75 mg 1 pill daily and folic acid 1 mg daily. Blood pressure medication lisinopril was discontinued in place of metoprolol. Recommendation for the patient to follow up with neurology as an outpatient to further monitor and address. 6. Patient has hypertension. Medication adjusted. Lisinopril discontinued. Metoprolol was added. At discharge patient will continue with metoprolol 25 mg 1 pill twice daily. Recommendation is to maintain blood pressures less 150/80. Further adjustment can be done by his PCP. 7. Patient has migraine headaches. Patient will continue with Topamax 75 mg 1 pill twice daily. Patient may follow up with neurology as directed. 8. Patient has chronic sinusitis. Patient may continue with Flonase 1 spray per nostril twice daily. Patient may follow up with ENT as an outpatient. 9. Patient has obstructive sleep apnea. Patient will continue with CPAP at night. Recommendation is for the patient follow up with pulmonology as an outpatient to further monitor. 10. Patient has GERD. Patient will continue with Protonix 40 mg 1 pill once daily. 11. Lifestyle modification education provided. Diet: AHA Activity: Ad codie Time spent managing pt's care (in minutes): 55
[2018-02-13 17:45] VITALS: O2SAT 92
== END 2018-02-13 17:46 | disposition home or self-care (01) | DRG 194 ==
LOC: ER 09:43 → ERHOLD 13:27 → 4TH 14:41
PROVIDERS: ADMIT Family Medicine; ATTEND Family Medicine
DX: J18.9 Pneumonia, unspecified organism (principal); J90 Pleural effusion, not elsewhere classified; N20.0 Calculus of kidney; N28.1 Cyst of kidney, acquired; Z86.73 Personal history of transient ischemic attack (TIA), and cerebral infarction without residual deficits; I10 Essential (primary) hypertension; G43.909 Migraine, unspecified, not intractable, without status migrainosus; J32.9 Chronic sinusitis, unspecified; G47.33 Obstructive sleep apnea (adult) (pediatric); K21.9 Gastro-esophageal reflux disease without esophagitis; K76.89 Other specified diseases of liver; E66.9 Obesity, unspecified; Z68.30 Body mass index [BMI] 30.0-30.9, adult; Z85.828 Personal history of other malignant neoplasm of skin; Z96.643 Presence of artificial hip joint, bilateral; Z96.653 Presence of artificial knee joint, bilateral
CPT/HCPCS: 36415; 70450; 70544; 70549; 70553; 71045; 71046; 71275; 74170; 76700; 80048; 80053; 80061; 80076; 80307; 81003; 81015; 82150; 82550; 82553; 82962; 83605; 83690; 83735; 83880; 84145; 84484; 85025; 85610; 85730; 87040; 87070; 87077; 87186; 87205; 93005; 93306; 93880; 96360; 96361; 96365; 97163; 99285; A9577; G0378; J0456; J0696; J1650; J7030; Q9967